=== PATIENT | female | born 1965 | race Hispanic/Latino ===

== ENCOUNTER 2017-11-18 21:41 | Emergency (ER) | payer OTHER ==
[2017-11-18] MEDS ORDERED: CLINDAMYCIN HCL 150 MG CAP ONE (23:36)
[2017-11-18] MEDS ORDERED: SMZ./TMP. 800/160 MG TABLET ONE (23:36)
--- NOTE | 2017-11-18 23:55 | EDPHYS ---
Physician Documentation [facility] Name: Dang Sequeira Age: 52 yrs Sex: Female : 1965 Arrival Date: 11/18/2017 Time: 21:46 Bed 13 Private MD: ED Physician Yasmine Kimbrough HPI: 11/18 23:46 This 52 yrs old Female presents to ER via Ambulatory with complaints of Toe jr8 Injury. 23:46 The patient presents with wound to right great toe . The complaints affect the right jr8 foot. Onset: The symptoms/episode began/occurred gradually, 1 week(s) ago. Modifying factors: The symptoms are alleviated by nothing, the symptoms are aggravated by nothing. Associated signs and symptoms: The patient has no apparent associated signs or symptoms. Severity of symptoms: At their worst the symptoms were moderate, in the emergency department the symptoms are unchanged. The patient has experienced a previous episode. Patient stated that her son noticed pin size hole to bottom of right great toe about 1 week ago. Stated that now it has increased in size and sees redness to top of toe with foul smelling fluid from bottom at open site of wound . 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 - Social history:: Smoking status: Patient/guardian denies using tobacco. ROS: 23:46 Eyes: Negative for injury, pain, redness, and discharge, ENT: Negative for injury, jr8 pain, and discharge, Neck: Negative for injury, pain, and swelling, Cardiovascular: Negative for chest pain, palpitations, and edema, Respiratory: Negative for shortness of breath, cough, wheezing, and pleuritic chest pain, Abdomen/GI: Negative for abdominal pain, nausea, vomiting, diarrhea, and constipation, Back: Negative for injury and pain, Skin: Negative for injury, rash, and discoloration, Neuro: Negative for headache, weakness, numbness, tingling, and seizure. 23:46 MS/extremity: Positive for erythema, of the right foot. Exam: 23:46 Eyes: Pupils equal round and reactive to light, extra-ocular motions intact. Lids and jr8 lashes normal. Conjunctiva and sclera are non-icteric and not injected. Cornea within normal limits. Periorbital areas with no swelling, redness, or edema. ENT: Nares patent. No nasal discharge, no septal abnormalities noted. Tympanic membranes are normal and external auditory canals are clear. Oropharynx with no redness, swelling, or masses, exudates, or evidence of obstruction, uvula midline. Mucous membranes moist. Neck: Trachea midline, no thyromegaly or masses palpated, and no cervical lymphadenopathy. Supple, full range of motion without nuchal rigidity, or vertebral point tenderness. No Meningismus. Cardiovascular: Regular rate and rhythm with a normal S1 and S2. No gallops, murmurs, or rubs. Normal PMI, no JVD. No pulse deficits. Respiratory: Lungs have equal breath sounds bilaterally, clear to auscultation and percussion. No rales, rhonchi or wheezes noted. No increased work of breathing, no retractions or nasal flaring. Abdomen/GI: Soft, non-tender, with normal bowel sounds. No distension or tympany. No guarding or rebound. No evidence of tenderness throughout. Back: No spinal tenderness. No costovertebral tenderness. Full range of motion. Skin: Warm, dry with normal turgor. Normal color with no rashes, no lesions, and no evidence of cellulitis. Neuro: Awake and alert, GCS 15, oriented to person, place, time, and situation. Cranial nerves II-XII grossly intact. Motor strength 5/5 in all extremities. Sensory grossly intact. Cerebellar exam normal. Normal gait. 23:46 Musculoskeletal/extremity: Extremities: grossly normal except: noted in the right foot: Patient has approximately 6 mm open wound to bottom of right great toe. Serous discharge noted from opening. Erythema present to top of toe , ROM: intact in all extremities, Circulation is intact in all extremities. Sensation intact. Vital Signs: 21:50 BP 160 / 100; Pulse 113; Resp 16; Temp 97.8; Pulse Ox 100% on R/A; Weight 118.84 kg; la1 Height 5 ft. 7 in. (170.18 cm); 23:00 BP 153 / 62; Pulse 102; Resp 18; Pulse Ox 97% on R/A; tl2 23:58 BP 152 / 66; Pulse 102; Resp 18; Pulse Ox 98% on R/A; Pain 0/10; tl2 21:50 Body Mass Index 41.03 (118.84 kg, 170.18 cm) la1 MDM: 22:05 Patient medically screened. jr8 23:46 Data reviewed: vital signs, nurses notes, radiologic studies, plain films, and as a jr8 result, I will discharge patient. Data interpreted: Pulse oximetry: on room air is 97 %. Interpretation: normal. Counseling: I had a detailed discussion with the patient and/or guardian regarding: the historical points, exam findings, and any diagnostic results supporting the discharge/admit diagnosis, radiology results, the need for outpatient follow up, a general surgeon, wound management , to return to the emergency department if symptoms worsen or persist or if there are any questions or concerns that arise at home. ED course: No signs of osteomyelitis on imaging. To f/u with wound care and general surgery. Will start on antibiotics . 11/18 23:35 Order name: Wound Culture 2 11/18 22:29 Order name: XRAY Foot RIGHT 3 View jr8 Administered Medications: 23:53 Drug: Bactrim 160 mg-800 mg (DS) 160 mg Route: PO; tl2 11/19 00:13 Follow up: Response: No adverse reaction; No change in condition tl1 00:46 Follow up: Response: No adverse reaction; Medication administered at discharge. tl2 11/18 23:53 Drug: Clindamycin 300 mg Route: PO; tl2 11/19 00:13 Follow up: Response: No adverse reaction; No change in condition tl1 00:45 Follow up: Response: No adverse reaction; Medication administered at discharge. tl2 Disposition: 05:42 Co-signature as Attending Physician, Yasmine Kimbrough MD. ny2 Disposition: 11/18/17 23:54 Discharged to Home. Impression: Unspecified open wound of right great toe without damage to nail, Cellulitis of right toe. - Condition is Stable. - Discharge Instructions: Cellulitis. - Prescriptions for Clindamycin HCl 300 mg Oral Capsule - take 1 capsule by ORAL route every 6 hours for 10 days; 40 capsule. Bactrim DS 800- 160 mg Oral Tablet - take 1 tablet by ORAL route every 12 hours for 10 days; 20 tablet. - Medication Reconciliation Form, Thank You Letter, Antibiotic Education, Prescription Opioid Use form. - Follow up: Calvin Scanlon MD; When: 2 - 3 days; Reason: Recheck today's complaints, Continuance of care, Re-evaluation by your physician. - Problem is new. - Symptoms have improved. Signatures: Dispatcher [employer] EDMS Jose Calderon PA PA jr8 Dylan Woods RN RN la1 Lilo Lenz RN RN tl1 Leanne Cisse RN RN tl2 Yasmine Kimbrough MD MD ma2
--- NOTE | 2017-11-18 23:55 | ER ---
Nurse's Notes [facility] Name: Dang Sequeira Age: 52 yrs Sex: Female : 1965 Arrival Date: 11/18/2017 Time: 21:46 Bed 13 Private MD: Diagnosis: Unspecified open wound of right great toe without damage to nail;Cellulitis of right toe Presentation: 11/18 21:49 Presenting complaint: Patient states: I am a diabetic and have a wound on my right la1 great toe, has been there for a week, now has purulent drainage. Transition of care: patient was not received from another setting of care. Onset of symptoms was November 18, 2017. Care prior to arrival: None. 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 - Social history:: Smoking status: Patient/guardian denies using tobacco. Screenin:04 Abuse screen: Denies threats or abuse. Nutritional screening: No deficits noted. tl2 Tuberculosis screening: No symptoms or risk factors identified. Fall Risk None identified. Assessment: 22:04 General: Appears in no apparent distress. comfortable, Behavior is calm, cooperative, tl2 appropriate for age, Denies fever, feeling ill. Pain: Denies pain. Neuro: Level of Consciousness is awake, alert, obeys commands, Oriented to person, place, time, situation. Cardiovascular: Denies chest pain. Respiratory: Airway is patent Respiratory effort is even, unlabored, Respiratory pattern is regular, symmetrical. GI: No signs and/or symptoms were reported involving the gastrointestinal system. : No signs and/or symptoms were reported regarding the genitourinary system. Derm: Skin is pink, warm \T\ dry. Wound noted right great toe Wound is small hole on bottom of great toe, no drainage noted. Pt reports foul odor. Discoloration noted. 23:00 Reassessment: Patient appears in no apparent distress at this time. No changes from tl2 previously documented assessment. Patient and/or family updated on plan of care and expected duration. Pain level reassessed. Patient is alert, oriented x 3, equal unlabored respirations, skin warm/dry/pink. 23:58 Reassessment: Patient appears in no apparent distress at this time. Patient and/or tl2 family updated on plan of care and expected duration. Pain level reassessed. Patient is alert, oriented x 3, equal unlabored respirations, skin warm/dry/pink. Vital Signs: 21:50 BP 160 / 100; Pulse 113; Resp 16; Temp 97.8; Pulse Ox 100% on R/A; Weight 118.84 kg; la1 Height 5 ft. 7 in. (170.18 cm); 23:00 BP 153 / 62; Pulse 102; Resp 18; Pulse Ox 97% on R/A; tl2 23:58 BP 152 / 66; Pulse 102; Resp 18; Pulse Ox 98% on R/A; Pain 0/10; tl2 21:50 Body Mass Index 41.03 (118.84 kg, 170.18 cm) la1 ED Course: 21:46 Patient arrived in ED. do 21:49 Triage completed. la1 21:50 Arm band placed on left wrist. la1 22:04 Patient has correct armband on for positive identification. Bed in low position. Call tl2 light in reach. Side rails up X 1. Adult w/ patient. 22:05 Jose Calderon PA is PHCP. jr8 22:05 Yasmine Kimbrough MD is Attending Physician. jr8 22:47 XRAY Foot RIGHT 3 View In Process Unspecified. EDMS 23:00 Leanne Cisse, NATHAN is Primary Nurse. tl2 23:53 Calvin Scanlon MD is Referral Physician. jr8 11/19 00:09 No provider procedures requiring assistance completed. Patient did not have IV access tl1 during this emergency room visit. 00:10 Dressings: non-adherent dressing x 1 plantar aspect of right first toe and right first tl1 toe. Administered Medications: 11/18 23:53 Drug: Bactrim 160 mg-800 mg (DS) 160 mg Route: PO; tl2 11/19 00:13 Follow up: Response: No adverse reaction; No change in condition tl1 00:46 Follow up: Response: No adverse reaction; Medication administered at discharge. tl2 11/18 23:53 Drug: Clindamycin 300 mg Route: PO; tl2 11/19 00:13 Follow up: Response: No adverse reaction; No change in condition tl1 00:45 Follow up: Response: No adverse reaction; Medication administered at discharge. tl2 Outcome: 11/18 23:54 Discharge ordered by jr8 11/19 00:11 Discharged to home ambulatory, with family. tl1 Condition: good Discharge instructions given to patient, family, Instructed on discharge instructions, follow up and referral plans. medication usage, wound care, Demonstrated understanding of instructions, follow-up care, medications, wound care, Prescriptions given X 2. 00:11 Patient left the ED. tl1 Addendum: 11/22/2017 07:57 Addendum: Culture Results: Positive wound culture. No further action required. Bacteria i w sensitive to prescribed antibiotic. Signatures: Dispatcher [employer] EDMS Tiffanie Mon RN Jose Cook PA PA jr8 Dylan Woods RN RN la1 Lilo Lenz RN RN tl1 Mirela Chilel Taylor RN RN tl2
[2017-11-19 00:32] VITALS: TEMP 97.8
[2017-11-19 00:34] VITALS: BP 152/66; O2SAT 98
--- NOTE | 2017-11-19 07:27 | RAD REPORT ---
EXAM DESCRIPTION: RAD - Foot Right 3 View - 11/18/2017 10:47 pm CLINICAL HISTORY: Soft tissue wound right toe, possible osteomyelitis. A preliminary report was provided at the time of the study. COMPARISON: None. FINDINGS: No fracture, dislocation or periosteal reaction. Degenerative changes are present, relativ richy mild at the first toe IP joint. No significant degenerative change at the first MTP joint. Patien t has dense arterial tree calcifications. No erosive or destructive bone process confirmed on this st udy. Osteomyelitis can exist prior to radiographic bone destruction. Focal air density is seen in the soft tissues. No foreign body is seen. Air density may be due to an open wound or the patient could have gas-forming organism in the soft tissues. IMPRESSION: Soft tissue wound with soft tissue air along the plantar aspect of the distal first toe. No radiographic evidence for osteomyelitis.
--- NOTE | 2017-12-05 18:56 | P.PN ---
Subjective Date of Service: 11/24/17 Chief Complaint: cellulitis, gangrenous toe Subjective: No new changes Review of Systems General: Fever (no), Chills (no) Respiratory: Unremarkable Cardiovascular: Unremarkable Musculoskeletal: As per HPI Integumentary: As per HPI Physical Examination - Vital Signs Temperature: 97.8 F Blood Pressure: 152/66 Pulse: 102 Respirations: 18 - Physical Exam Musculoskeletal: Swelling, Erythema Integumentary: Erythema, Warmth, Cyanosis, Diabetic ulcer (gangraneous changes over first toe.) Neurological: Normal speech Assessment And Plan - Plan Pt does not want amputation at this time. She will only allow me to clean the gangreous skin ulcer and after abx treatment and wound care if no improvement then she will make any other decision. BAR of suegery and options fully explained abx per ID LTAC consult
== END 2017-11-19 00:11 | disposition home or self-care (01) ==
LOC: ER 21:41
DX: L03.031 Cellulitis of right toe (principal); I10 Essential (primary) hypertension; E11.9 Type 2 diabetes mellitus without complications; E78.00 Pure hypercholesterolemia, unspecified; Z79.4 Long term (current) use of insulin; Z79.82 Long term (current) use of aspirin; Z91.040 Latex allergy status; Z91.048 Other nonmedicinal substance allergy status
CPT/HCPCS: 87070; 87077; 87186; 87205; 99283

== ENCOUNTER 2017-11-23 13:35 | Inpatient (IN) | payer OTHER ==
[2017-11-23] MEDS ORDERED: ACETAMINOPHEN 325 MG TABLET PO PRN (14:40)
[2017-11-23] MEDS ORDERED: ONDANSETRON 4 MG/2 ML VIAL IV PRN (14:41)
[2017-11-23] MEDS ORDERED: HYDROMORPHONE HCL 2 MG/ML inj IV PRN (14:44)
[2017-11-23 15:06] LABS: Urine Appearance CLEAR; Urine Bilirubin NEGATIVE (NEG); Urine Blood 2+ (NEG); Urine Color YELLOW; Urine Glucose 3+ (NEG); Urine Protein TRACE (NEG); Urine Specific Gravity 1.025 (1.005-1.030); Urine Urobilinogen 0.2 mg/dL (0.2-1.0)
[2017-11-23 15:24] LABS: Urine Microscopic Reflex ORDER UMIC
--- NOTE | 2017-11-23 15:34 | RAD REPORT ---
EXAM DESCRIPTION: RAD - Chest Pa And Lat (2 Views) - 11/23/2017 3:02 pm CLINICAL HISTORY: Preop chest, right toe gangrene COMPARISON: None. TECHNIQUE: PA and lateral views of the chest were obtained. FINDINGS: The lungs are clear. Heart size is normal and central vasculature is within normal limit s. No pleural effusion or pneumothorax seen. No acute bony finding noted. No aortic abnormality. IMPRESSION: No acute cardiopulmonary process.
[2017-11-23 15:52] VITALS: BMI 40.1
[2017-11-23 16:16] LABS: Absolute Lymphocytes (CBC) 1.9 K/uL (0.7-4.9); Absolute Monocytes 0.9 K/uL (0.1-1.3); Absolute Neutrophil 6.1 K/uL (1.8-8.0); Basophils % 0.8 % (0-1.3); Eosinophils % 3.3 % (0-4.4); Hematocrit 35.4 % (36.0-45.0); Lymphocytes % 20.5 % (15.3-44.8); MCH 26.9 pg (27.0-35.0); MCV 83.2 fL (80-100); MPV 8.3 fL (7.6-11.3); Monocytes % 9.9 % (3.3-12.3); RBC Red Blood Cell Count 4.26 M/uL (3.86-4.86)
[2017-11-23 16:19] LABS: Protime INR 1.01
[2017-11-23] MEDS ORDERED: D50W 25 GM/50 ML SYRINGE IV PRN (16:55)
[2017-11-23] MEDS ORDERED: GLUCAGON 1 MG/VIAL IM PRN (16:55)
[2017-11-23 16:58] LABS: Potassium 5.2 mEq/L (3.6-5.0)
[2017-11-23] MEDS: PIPER/TAZO/NS 3.375gm 3.375 GM/100 ML BAG IV SCH (17:10)
[2017-11-23 18:07] LABS: Urine Bacteria <20 /HPF (<20); Urine Culture Reflex Order NOT NEEDED
[2017-11-23 18:08] LABS: Urine Yeast PRESENT (NONE SEEN)
--- NOTE | 2017-11-23 19:59 | RAD REPORT ---
EXAM DESCRIPTION: MRI - Foot Right Wo Cont - 11/23/2017 7:16 pm CLINICAL HISTORY: Gangrenous right toe, prior history of osteomyelitis several years earlier, open w ound plantar surface of the right great toe COMPARISON: Right foot November 18 TECHNIQUE: Multiplanar imaging of the foot performed using T1 weighted, T2 weighted, T2 fat saturati on and T2 stir sequencing. FINDINGS: Hypointense T1 and hyperintense T2 signal is present in the first distal phalanx. No corti koko disruption identified on this examination. No signal characteristics in the first proximal phalan x are normal. Soft tissue thickening with edematous/inflammatory signal is present surrounding the di stal first toe. No abscess or drainable fluid collections seen. The flexor and extensor tendons are i ntact. The second- fifth toes and the first- fifth metatarsals show normal marrow signal pattern. Mild tarsa l bone degenerative changes are present. No suspicious marrow signal pattern in the midfoot. IMPRESSION: Osteomyelitis changes are evident in the distal phalanx first toe without cortical disru ption identifiable. Proximal phalanx first toe as well as remaining bony structures of the foot show no abnormal marrow s ignal pattern. Infectious/inflammatory signal surrounding the first toe. No drainable fluid collection.
--- NOTE | 2017-11-23 20:27 | P.HP ---
Certification for Inpatient Patient admitted to: Inpatient With expected LOS: >2 Midnights Practitioner: I am a practitioner with admitting privileges, knowledge of patient current condition, hospital course, and medical plan of care. Services: Services provided to patient in accordance with Admission requirements found in Title 42 Section 412.3 of the Code of Federal Regulations Patient History Date of Service: 11/23/17 Reason for admission: RIGHT TOE INFECTION. History of Present Illness: MS. KING'S SON NOTED A HOLE IN THE TOE A FEW DAYS AGO. SHE NOW HAS GREEN TO YELLOW RIGHT TOW WITH PAIN. SHE GOES TO DR. ROSS FOR HER CARE. SHE HAS MODERATE PVD ALSO. Allergies latex Allergy (Mild, Verified 01/01/13 11:26) Itching Latex, Natural Rubber Allergy (Unverified 07/03/17 11:42) Unknown Home Medications: Glipizide [Glucotrol Xl] 10 mg PO BID 01/24/13 Aloe Vera 350 mg PO DAILY 07/13/17 Aspirin [Aspirin EC 81 MG] 81 mg PO DAILY 07/13/17 Atorvastatin Calcium [Lipitor] 10 mg PO BEDTIME 07/13/17 Bimatoprost [Lumigan Opthalmic Drops*] 2.5 ml EACH EYE DAILY 07/13/17 Brimonidine Tartrate/Timolol [Combigan 0.2%-0.5% Eye Drops] 2.5 ml EACH EYE BID 07/13/17 Cinnamon Bark [Cinnamon] 500 mg PO DAILY 07/13/17 Clindamycin HCl 300 mg PO TID 07/13/17 Folic Acid/Mv,Fe,Min [One Daily Complete Tablet] 1 each PO DAILY 07/13/17 Lisinopril 20 mg PO DAILY 07/13/17 Sitagliptin Phosphate [Januvia*] 100 mg PO DAILY 07/13/17 Metformin HCl 1,000 mg PO BID 11/23/17 - Past Medical/Surgical History Has patient received pneumonia vaccine in the past: No Diabetic: Yes -: DM type 2 -: hyperlipidemia -: htn -: x1 - Social History Smoking Status: Never smoker Alcohol use: No CD- Drugs: No Caffeine use: Yes Place of Residence: Home Review of Systems 10-point ROS is otherwise unremarkable Integumentary: Other Physical Examination - Vital Signs Temperature: 97.8 F Blood Pressure: 146/64 Pulse: 88 Respirations: 16 Pulse Ox (%): 97 - Physical Exam General: Alert, Moderate distress HEENT: Atraumatic, PERRLA, Mucous membr. moist/pink, EOMI, Sclerae nonicteric Neck: Supple, 2+ carotid pulse no bruit, No LAD, Without JVD or thyroid abnormality Respiratory: Clear to auscultation bilaterally, Normal air movement Cardiovascular: Regular rate/rhythm, Normal S1 S2 Gastrointestinal: Normal bowel sounds, No tenderness Musculoskeletal: No tenderness Integumentary: Other (DIABETIC WET GANGRENE RIGHT GREAT TOE.) Neurological: Normal gait, Normal speech, Normal strength at 5/5 x4 extr, Normal tone, Normal affect Lymphatics: No axilla or inguinal lymphadenopathy - Studies Laboratory Data (last 24 hrs) 11/23/17 16:00: Sodium 135, Potassium 5.2 H, BUN 30 H, Creatinine 0.97, Glucose 152 H 11/23/17 16:00: PT 11.9, INR 1.01, APTT 25.9 11/23/17 16:00: WBC 9.3, Hgb 11.5 L, Hct 35.4 L, Plt Count 385 Assessment and Plan - Problems (Diagnosis) (1) Diabetic wet gangrene of the foot Current Visit: Yes Status: Acute Plan: IV ZOSYN STOP CLINDAMYCIN CONSULT DR. MOREAU MRI DONE TO CONFIRM OSTEOMYELITIS DISTAL PHALANX DEBRIDE IV ABX 6 WEEKS. (2) Diabetes Current Visit: Yes Status: Acute Qualifiers: Diabetes mellitus type: type 2 - Advance Directives Does patient have a Living Will: No Does patient have a Durable POA for Healthcare: No
[2017-11-23] MEDS: INSULIN -REGULAR HUMAN 50 UNIT/0.5 ML ML SQ SCH (21:00)
[2017-11-23] MEDS ORDERED: BRIMONIDINE TARTRATE EACH EYE SCH (21:00)
[2017-11-23] MEDS ORDERED: TIMOLOL EACH EYE SCH (21:00)
[2017-11-23] MEDS: ATORVASTATIN 10 MG TAB PO SCH (21:50)
[2017-11-23] MEDS: GLIPIZIDE S.A. 5 MG TAB PO SCH (21:50)
[2017-11-23] MEDS: METFORMIN HCL 500 MG TAB PO SCH (21:50)
--- NOTE | 2017-11-23 22:10 | EKG ---
Test Date: 2017-11-23 Test Time: 16:52:11 Director Of Business Operations: EBONI MEASUREMENT RESULTS: Intervals: Rate: 94 LA: 158 QRSD: 86 QT: 368 QTc: 460 Falconer: P: 26 LA: 158 QRS: -29 T: 49 INTERPRETIVE STATEMENTS: Normal sinus rhythm Normal ECG Compared to ECG 01/04/2007 14:03:05 No significant changes Electronically Signed On 11-23-17 22:09:25 CDT by Geoffrey Delgado
--- NOTE | 2017-11-23 23:22 | CON ---
Date of Consultation: 11/23/2017 Reason For Service: Right foot cellulitis with gangrenous changes in the toe. History Of Present Illness: This is the case of a 52-year-old patient with multiple medical problems , who comes to us with a foul-smelling right first toe with cellulitis of the foot region. [facility]ie nt [facility] and sent to the hospital for admission, IV antibiotics, and a surgical consult for surgical intervention. She does not remember any trauma. She has been having problem with this toe for years. At one point, she also required chronic IV antibiotics to save that toe. She does not remember any trauma. She understands the sensation there is not perfect, but sti ll has a lot of sensation over that area. She denies any dysuria, hematuria, hematochezia, or melena . Denies any recent traveling out of the country. Denies any family member sick at home. Past Medical History: Include diabetes, non-insulin dependent; high cholesterol; hypertension; perip heral neuropathy. Allergies: TO LATEX. Social History: She does not smoke. She does not drink alcohol. Family History: Peripheral vascular disease. Physical Examination: General: This is a patient is awake and alert. HEENT: Pupils are equal and reactive, anicteric. Neck: Supple. Chest: Clear. Heart: S1, S2. Abdomen: Soft and depressible. No guarding or rebound. Extremities: Over the bilateral lower extremities, the patient has decreased peripheral pulses, dors iam pedis. No cyanosis, but on the right foot, the patient has cellulitis that extends to the first toe and also proximal foot region. Also, the first toe has a diabetic ulcer and that has foul smell ing, very close to the bone. I am surprised that the bone is not affected by now. There is some nec rotic tissue that needs to be removed. I am not sure if we have to remove the toe completely, but it needs to be clean and some fluctuance present too. No cyanosis. Review of Systems: A 10-point is otherwise unremarkable. Laboratory Data: Blood work shows WBC count of 9.3 with hemoglobin of 11.5. INR is 1.01. Potassium is 5.2, glucose 152. Foot x-ray shows soft tissue wound with soft tissue air, obviously there is an ulcer in that area on the distal toe. Venous Doppler done on July 2017, shows no DVT. Arterial Doppler done 8 done on the right lower extremity shows peripheral vascular disease, occlusion or significant steno sis in the right posterior tibial region. This was ordered by Dr. Yates. Assessment: This is a 52-year-old patient with peripheral vascular disease. Obviously, this is well known since I saw the arterial Doppler. We are going to check with the primary doctor to see if Car diology or Interventional Cardiology has been watching this patient. From the toe standpoint, we are going to give antibiotics. The bone is close, is just near that area. There is some exposure to wh ere that can surprise this patient does not have osteomyelitis, so I believe a bone scan or MRI shoul d be done. The patient will go for surgical debridement of that area since it is very sensitive with benefits, alternatives, and risks fully explained to the patient, which include but are not limited to infection, bleeding, damage to adjacent structures, anesthesia complication, nonhealing wound, DE, and even . She also understands this may not relieve any symptoms. She might need more than o ne surgical intervention. She is still have a chance of losing that toe. CINDY/MODL Voice ID: [id number] Report ID: [id number]
[2017-11-24] MEDS ORDERED: LIDOCAINE 1% MPF 5 ML VIAL ONE (01:02)
[2017-11-24] MEDS: PIPER/TAZO/NS 3.375gm 3.375 GM/100 ML BAG IV SCH ×4 (02:32→17:34)
--- NOTE | 2017-11-24 08:13 | RAD REPORT ---
EXAM DESCRIPTION: RAD - Chest Single View - 11/23/2017 11:28 pm CLINICAL HISTORY: Device placement PICC line placement COMPARISON: November 23, 2017 FINDINGS: A PICC line has been inserted with its tip in the proximal superior vena cava. The lungs appear clear of acute infiltrate. The heart is normal size. IMPRESSION: PICC line with its tip in the distal superior vena cava
--- NOTE | 2017-11-24 08:14 | RAD REPORT ---
EXAM DESCRIPTION: RAD - Chest Single View - 11/24/2017 1:43 am CLINICAL HISTORY: Device placement PICC line placement COMPARISON: November 23 FINDINGS: A PICC line has been advanced. The tip lies within the mid superior vena cava The lungs appear clear of acute infiltrate. The heart is normal size. IMPRESSION: PICC line with its tip in the mid superior vena cava
[2017-11-24] MEDS ORDERED: MULTIVIT W/ MINERAL TAB PO SCH (09:00)
[2017-11-24] MEDS ORDERED: BIMATOPROST EACH EYE SCH (09:00)
[2017-11-24] MEDS: INSULIN -REGULAR HUMAN 50 UNIT/0.5 ML ML SQ SCH ×4 (09:19→21:00)
[2017-11-24] MEDS: GLIPIZIDE S.A. 5 MG TAB PO SCH ×2 (09:22→20:48)
[2017-11-24] MEDS: METFORMIN HCL 500 MG TAB PO SCH ×2 (09:22→20:48)
[2017-11-24] MEDS: LISINOPRIL 20 MG TAB PO SCH (09:22)
[2017-11-24] MEDS: SITAGLIPTIN PHOS 100 MG TAB PO SCH (09:22)
[2017-11-24] MEDS: ASPIRIN EC 81 MG TAB PO SCH (09:22)
[2017-11-24 12:07] LABS: A1c Component 0.87 mg/dL
[2017-11-24] MEDS: ATORVASTATIN 10 MG TAB PO SCH (20:47)
[2017-11-25] MEDS: PIPER/TAZO/NS 3.375gm 3.375 GM/100 ML BAG IV SCH ×3 (00:44→17:19)
[2017-11-25] MEDS: INSULIN -REGULAR HUMAN 50 UNIT/0.5 ML ML SQ SCH ×4 (07:30→20:50)
[2017-11-25] MEDS: GLIPIZIDE S.A. 5 MG TAB PO SCH ×2 (09:00→20:49)
[2017-11-25] MEDS: METFORMIN HCL 500 MG TAB PO SCH ×2 (09:00→20:49)
[2017-11-25] MEDS: ASPIRIN EC 81 MG TAB PO SCH (09:05)
[2017-11-25] MEDS: LISINOPRIL 20 MG TAB PO SCH (09:06)
--- NOTE | 2017-11-25 10:18 | P.PN ---
Subjective Date of Service: 11/25/17 Chief Complaint: RIGHT TOE INFECTION. Subjective: No new changes, Improving, NPO, Doing well, Other (Awaiting I&D today) Review of Systems 10-point ROS is otherwise unremarkable Physical Examination - Vital Signs Temperature: 97.2 F Blood Pressure: 117/57 Pulse: 94 Respirations: 16 Pulse Ox (%): 98 - Physical Exam General: Alert, In no apparent distress HEENT: Atraumatic, PERRLA, EOMI Neck: Supple, JVD not distended Respiratory: Clear to auscultation bilaterally, Normal air movement Cardiovascular: Regular rate/rhythm, Normal S1 S2 Gastrointestinal: Normal bowel sounds, No tenderness Musculoskeletal: Erythema, Tenderness, Warmth Integumentary: No rashes Neurological: Normal speech, Normal tone, Normal affect Lymphatics: No axilla or inguinal lymphadenopathy - Studies Medications List Reviewed: Yes Assessment & Plan - Problems (Diagnosis) (1) Diabetic wet gangrene of the foot Onset Date: 11/24/17 Current Visit: Yes Status: Acute Plan: Diabetic Foot Ulcer with gangrene on the right side. -ID and Surgery consulted. -Scheduled for I&D today. -LTAC placement after that. Pt to go to [facility] (2) Diabetes Onset Date: 11/24/17 Current Visit: Yes Status: Chronic Qualifiers: Diabetes mellitus type: type 2 Diabetes mellitus complication status: with circulatory complication Diabetes mellitus complication detail: with peripheral angiopathy with gangrene Discharge Plan: LTAC Plan to discharge in: 24 Hours - Code Status/Comfort Care Code Status Assessed: Yes Critical Care: No
[2017-11-25] MEDS ORDERED: PROPOFOL 200 MG/20 ML VIAL IV ONE (11:53)
[2017-11-25] MEDS ORDERED: LIDOCAINE 1% MPF 5 ML VIAL ONE (11:53)
[2017-11-25] MEDS ORDERED: MIDAZOLAM HCL 2 MG/2 ML INJ ONE (11:53)
[2017-11-25] MEDS ORDERED: FENTANYL CITR 100 MCG/2 ML ONE (11:53)
[2017-11-25] MEDS ORDERED: NA CHLORIDE 0.9% 1,000 ML ONE (12:09)
[2017-11-25] MEDS ORDERED: BUPIVACAINE 0.5% PF 10 ML VIAL ONE (12:48)
[2017-11-25] MEDS ORDERED: EPHEDRINE SULF 50 MG/5 ML SYR ONE (13:27)
--- NOTE | 2017-11-25 13:29 | P.BOP ---
Preoperative diagnosis: right foot cellulitis, osteomyelitis with necrotic first toe diabetic ulcer Postoperative diagnosis: same Primary procedure: Excisional debridement down to tendon and bone of right toe Secondary procedure: 3x3cm Estimated blood loss: <5cc Specimen: culture, necrotic tissue Findings: osteomyelitis, necrotic first toe diabetic ulcer with gangrenous changes Anesthesia: General Complications: None Transferred to: Recovery Room Condition: Good
[2017-11-25] MEDS ORDERED: ONDANSETRON 4 MG/2 ML VIAL ONE (13:33)
[2017-11-25] MEDS ORDERED: Phenylephrine HCl 10 MG/ML 1 ML VIAL ONE (13:38)
[2017-11-25] MEDS ORDERED: LIDOCAINE 1% MPF 5 ML VIAL IM PRN (15:00)
[2017-11-25] MEDS ORDERED: SODIUM CHLORIDE 0.9% 10ML INJ IV PRN ×2 (15:00)
[2017-11-25] MEDS: SITAGLIPTIN PHOS 100 MG TAB PO SCH (17:17)
[2017-11-25] MEDS: ATORVASTATIN 10 MG TAB PO SCH (20:50)
[2017-11-25] MEDS: SODIUM CHLORIDE 0.9% 10ML INJ IV SCH (20:54)
[2017-11-26] MEDS: PIPER/TAZO/NS 3.375gm 3.375 GM/100 ML BAG IV SCH ×3 (00:58→16:57)
--- NOTE | 2017-11-26 03:58 | OP ---
Date of Procedure: 11/25/2017 Surgeon: Dyllan Richardson MD Preoperative Diagnoses: Right foot cellulitis and osteomyelitis of the right first toe with necrotic first toe diabetic ulcer with gangrenous changes, foul smelling, cellulitis. Postoperative Diagnoses: Right foot cellulitis and osteomyelitis of the right first toe with necroti c first toe diabetic ulcer with gangrenous changes, foul smelling, cellulitis. Procedure: Excisional debridement down to tendon and bone of the right first toe, about 3 x 3 cm are a. Estimated Blood Loss: Less than 5 cc. Specimen: Culture and necrotic tissue. Findings: The patient has at least 1/3 of that toe with necrotic tissue present. It goes down to jazz ne to tendon. Debridement have to be done. The patient does not want the amputation, so all the necrotic tissue of that area. Microscopically, the rest will have to be done with Santyl. C ultures were obtained. Indication For Procedure: This is the case of a 52-year-old patient with history of osteomyelitis of the right first toe in the past, now comes with a new area, foul smelling wound on the right first t oe with gangrenous changes. It was explained to her the options of an amputation of the toe. She do es not want to do so. She wants debridement, so we are going to debride that area, although we are n ot sure exactly if that is going to heal. She has been through this before several years ago, had os teomyelitis that required long-term antibiotics of the same area. The benefits, alternatives, and ri sks of debridement of the right first toe and foot fully explained to the patient, which include but are not limited to infection, bleeding, damage to adjacent structures, anesthesia complication, nonhe aling wound, [place], and even . She also understands this may not relieve any symptoms. She might need more than one surgical intervention. She understands the importance also of wound care and bein g compliant with the Infectious Disease and long-term antibiotics. She still might lose her toe, but she wants some time. Description Of Procedure: The patient was brought to the operating room and placed in the supine pos ition. Anesthesia was done without complication. The right foot was prepped and draped in usual meri rile fashion. We proceeded to do the debridement of that toe. This toes goes all the way up to part of the foot. The patient has a large area of a necrotic tissue, cover mainly the plantar surface of the first toe, about 3 x 3 cm at least. Bone was exposed. Tendons were exposed. We hav e to debride part of the tendons of the flexor of that toe that will involve. Culture was obtained. The area was profusely irrigated and then the area was packed with wet-to-dry dressing. We will obt ain the culture before that. The patient tolerated the procedure well. The patient was sent to [facility] in stable condition. The patient will be sent to the floor and eventually we will send to an AC by the primary doctor. JERRI Voice ID: [id number] Report ID: [id number]
[2017-11-26] MEDS: GLIPIZIDE S.A. 5 MG TAB PO SCH ×2 (08:51→21:12)
[2017-11-26] MEDS: LISINOPRIL 20 MG TAB PO SCH (08:51)
[2017-11-26] MEDS: SITAGLIPTIN PHOS 100 MG TAB PO SCH (08:51)
[2017-11-26] MEDS: METFORMIN HCL 500 MG TAB PO SCH ×2 (08:51→21:12)
[2017-11-26] MEDS: ASPIRIN EC 81 MG TAB PO SCH (08:51)
[2017-11-26] MEDS: INSULIN -REGULAR HUMAN 50 UNIT/0.5 ML ML SQ SCH ×4 (08:52→21:00)
[2017-11-26] MEDS: SODIUM CHLORIDE 0.9% 10ML INJ IV SCH ×2 (08:53→21:14)
[2017-11-26 11:48] LABS: Absolute Lymphocytes (CBC) 1.6 K/uL (0.7-4.9); Absolute Monocytes 0.8 K/uL (0.1-1.3); Absolute Neutrophil 4.8 K/uL (1.8-8.0); Basophils % 1.1 % (0-1.3); Eosinophils % 3.7 % (0-4.4); Hematocrit 32.9 % (36.0-45.0); Lymphocytes % 20.7 % (15.3-44.8); MCH 26.9 pg (27.0-35.0); MCV 82.6 fL (80-100); Monocytes % 10.6 % (3.3-12.3); RBC Red Blood Cell Count 3.98 M/uL (3.86-4.86)
[2017-11-26 12:40] LABS: Albumin 2.5 g/dL (3.2-5.5); Bilirubin Total 0.3 mg/dL (0.3-1.2); Potassium 4.9 mEq/L (3.6-5.0); Protein, Total 7.3 g/dL (6.0-8.3)
--- NOTE | 2017-11-26 15:37 | PN ---
Subjective: Currently, she is lying in bed, she looks comfortable. No chest pain. No abdominal pain. No fever. No chills. Good appetite. Normal bowel movement. Objective: Vital Signs: Today blood pressure is 119/70, respiratory rate 16, pulse 102, temperature 97.2, saturating 96%. General: She is fully alert, oriented x3. Does not look in any distress. HEENT: Atraumatic, normocephalic. PERRLA. Oral mucosa is moist. Neck: Supple. No JVD. No carotid bruits. Chest: Clear to auscultation. Good air entry. Heart: Regular rate and rhythm. S1, S2 normal. No gallop or murmur. Abdomen: Soft, nontender. No masses. No hepatosplenomegaly. Positive bowel sounds. Obese. Extremities: No clubbing or cyanosis. She is status post excisional debridement of the right first toe with dressing on the right foot. No active bleeding. Neurologic: Grossly intact. Laboratory Data: Today's labs: All CBC and CMP not done and I just ordered and they are pending. Glucose in the range of 135 to 241. Assessment And Plan: 1. Diabetic ulcer with wet gangrene of the big toe, status post debridement done by Dr. Richardson yesterday. Patient tolerated procedure well. She will need LTAC placement and she will go to [facility] on Tuesday. In the meantime, we will continue antibiotic on Zosyn, consult with Dr. Fuller still pending to decide the term of antibiotic. 2. Diabetes, borderline control. She will continue on home medication with sitagliptin, glipizide, insulin sliding scale. 3. Hyperlipidemia, continue on atorvastatin. 4. Hypertension, we will continue on lisinopril, well controlled. 5. She will probably need deep vein thrombosis prophylaxis. If General Surgery agree and they do not think there is risk for bleeding, I will encourage to ambulate. ELLIS/RUBINA Voice ID: [id number] Report ID: [id number] MTDD
[2017-11-26] MEDS: ENOXAPARIN 40 MG/0.4 ML SQ SCH (16:56)
[2017-11-26] MEDS: ATORVASTATIN 10 MG TAB PO SCH (21:13)
[2017-11-27] MEDS: PIPER/TAZO/NS 3.375gm 3.375 GM/100 ML BAG IV SCH ×3 (00:45→18:36)
[2017-11-27 05:08] LABS: Absolute Lymphocytes (CBC) 2.5 K/uL (0.7-4.9); Absolute Monocytes 1.1 K/uL (0.1-1.3); Absolute Neutrophil 4.4 K/uL (1.8-8.0); Eosinophils % 5.6 % (0-4.4); Hematocrit 31.6 % (36.0-45.0); Lymphocytes % 29.2 % (15.3-44.8); MCH 27.3 pg (27.0-35.0); MCV 82.5 fL (80-100); MPV 8.1 fL (7.6-11.3); Monocytes % 12.6 % (3.3-12.3); RBC Red Blood Cell Count 3.82 M/uL (3.86-4.86)
[2017-11-27 05:23] LABS: Bilirubin Total 0.2 mg/dL (0.3-1.2); Potassium 4.6 mEq/L (3.6-5.0); Protein, Total 7.4 g/dL (6.0-8.3)
[2017-11-27] MEDS: INSULIN -REGULAR HUMAN 50 UNIT/0.5 ML ML SQ SCH ×4 (07:30→21:00)
[2017-11-27] MEDS: SODIUM CHLORIDE 0.9% 10ML INJ IV SCH ×2 (09:00→21:33)
[2017-11-27] MEDS: ASPIRIN EC 81 MG TAB PO SCH (10:06)
[2017-11-27] MEDS: SITAGLIPTIN PHOS 100 MG TAB PO SCH (10:06)
[2017-11-27] MEDS: METFORMIN HCL 500 MG TAB PO SCH ×2 (10:06→21:32)
[2017-11-27] MEDS: GLIPIZIDE S.A. 5 MG TAB PO SCH ×2 (10:06→21:32)
[2017-11-27] MEDS: LISINOPRIL 20 MG TAB PO SCH (10:06)
[2017-11-27] MEDS: COLLAGENASE 30 GM OINTMENT TOP SCH (10:07)
--- NOTE | 2017-11-27 15:29 | PN ---
Subjective: Currently, the patient is lying in bed. She is doing well. She had no chest pain, no a bdominal pain. No foot pain. No fever. No chills. She is getting ready to go to a rehab facility in a.m. Objective: Vital Signs: Blood pressure 114/67, respiratory rate 20, pulse 95, temperature 97.8, sat urating 95% on room air. She is fully alert, oriented x3. Does not look in any distress. HEENT: Atraumatic, normocephalic. PERRLA. Oral mucosa is moist. Neck: Supple. No JVD. No carotid bruits. Chest: Clear to auscultation. Good air entry. Heart: Regular rate and rhythm. S1, S2 normal. No gallop or murmur. Abdomen: Soft, nontender, no masses, obese. Positive bowel sounds. Extremities: No clubbing or cyanosis or edema. She has a stasis dermatitis signs. Status post righ t large toe amputation. Neurologic: Deferred. Laboratory Data: Today showed CBC was normal except for hemoglobin 10.4, which is stable from yester day. Chemistry normal with a BUN of 26, slightly elevated creatinine of 1.16. Calcium 8.1, albumin 3. Assessment And Plan: 1.Diabetic ulcer with wet gangrene of the right big toe. Status post debridement done by Dr. Jovani neff on Tuesday. The patient tolerated procedure very well. Plan to discharge her to LTAC on Tuesday. Continue antibiotic on Zosyn. ID consult with Dr. Fuller still pending, he is on vacation. To decide type of antibiotic. 2.Diabetes. Continue home medication with sitagliptin, glipizide, and insulin sliding scale for now . I will order hemoglobin A1c to see how well controlled her diabetes. 3.Hyperlipidemia. Continue on atorvastatin. 4.Hypertension. Well controlled on lisinopril. 5.DVT prophylaxis with Lovenox. Discharge in a.m. 6.Renal insufficiency, mild. We will encourage patient to drink more fluids. ELLIS/RUBINA Voice ID: [id number] Report ID: [id number]
[2017-11-27] MEDS: ENOXAPARIN 40 MG/0.4 ML SQ SCH (18:36)
[2017-11-27] MEDS: ATORVASTATIN 10 MG TAB PO SCH (21:32)
[2017-11-28] MEDS: PIPER/TAZO/NS 3.375gm 3.375 GM/100 ML BAG IV SCH ×3 (02:20→17:18)
[2017-11-28] MEDS: INSULIN -REGULAR HUMAN 50 UNIT/0.5 ML ML SQ SCH ×4 (07:30→20:25)
[2017-11-28] MEDS: GLIPIZIDE S.A. 5 MG TAB PO SCH ×2 (08:25→20:25)
[2017-11-28] MEDS: SITAGLIPTIN PHOS 100 MG TAB PO SCH (08:26)
[2017-11-28] MEDS: ASPIRIN EC 81 MG TAB PO SCH (08:26)
[2017-11-28] MEDS: METFORMIN HCL 500 MG TAB PO SCH ×2 (08:26→20:24)
[2017-11-28] MEDS: LISINOPRIL 20 MG TAB PO SCH (08:26)
[2017-11-28] MEDS: SODIUM CHLORIDE 0.9% 10ML INJ IV SCH ×2 (08:27→20:26)
[2017-11-28] MEDS: COLLAGENASE 30 GM OINTMENT TOP SCH (08:28)
[2017-11-28 11:34] LABS: A1c Component 0.83 mg/dL; Hemoglobin A1c 8.5 % (4-6.0)
[2017-11-28 16:36] VITALS: TEMP 97.8
[2017-11-28] MEDS: ENOXAPARIN 40 MG/0.4 ML SQ SCH (17:18)
--- NOTE | 2017-11-28 17:39 | P.DS ---
Admission Date: 11/23/17 Discharge Date: 11/28/17 Disposition: ROUTINE DISCHARGE Discharge Condition: GOOD Reason for Admission: RIGHT TOE INFECTION. Consultations: General Surgery Procedures: I&D - Problems (1) Diabetic wet gangrene of the foot Onset Date: 11/24/17 Current Visit: Yes Status: Acute (2) Diabetes Onset Date: 11/24/17 Current Visit: Yes Status: Chronic Qualifiers: Diabetes mellitus type: type 2 Diabetes mellitus complication status: with circulatory complication Diabetes mellitus complication detail: with peripheral angiopathy with gangrene Brief History of Present Illness: See HPI Hospital Course: Overall during the hospital stay patient remained stable Initially patient was admitted to Dr. Houston while however patient wanted a 2nd opinion from a hospitalist group and thus we were consulted to take care of the patient. Patient was admitted initially for osteomyelitis of the right foot with a wet gangrene. Patient did have similar symptoms in the past and had wound care with Dr. Fuller and had significant improvement thus patient wanted to do wound care and IV abx. Initially was initially kept on IV antibiotics here in the hospital and had I&D done with general surgery. MRI of the foot was done which was consistent with osteomyelitis. ID was consulted at that time , who recommended 6 weeks of IV antibiotics along with wound care. Wound culture + for Providencia sensitive to zosyn and meropenum. Patient was then referred to a long-term acute care facility and [facility]. Patient thus will be transferred to [facility] for 6 weeks of antibiotics and wound care with ID. Vital Signs/Physical Exam: Temp Pulse Resp BP Pulse Ox 97.8 F 91 H 16 180/76 H 98 11/28/17 16:00 11/28/17 16:00 11/28/17 16:00 11/28/17 16:00 11/28/17 16:00 General: Alert, In no apparent distress HEENT: Atraumatic, PERRLA, EOMI Neck: Supple, JVD not distended Respiratory: Clear to auscultation bilaterally, Normal air movement Cardiovascular: Regular rate/rhythm, Normal S1 S2 Gastrointestinal: Normal bowel sounds, No tenderness Musculoskeletal: Erythema, Warmth Integumentary: No rashes Neurological: Normal speech, Normal tone, Normal affect Lymphatics: No axilla or inguinal lymphadenopathy Laboratory Data at Discharge: WBC 8.5 K/uL (4.3-10.9) 11/27/17 04:32 Hgb 10.4 g/dL (12.0-15.0) L 11/27/17 04:32 Hct 31.6 % (36.0-45.0) L 11/27/17 04:32 Plt Count 331 K/uL (152-406) 11/27/17 04:32 PT 11.9 SECONDS (9.5-12.5) 11/23/17 16:00 INR 1.01 11/23/17 16:00 APTT 25.9 SECONDS (24.3-36.9) 11/23/17 16:00 Sodium 135 mEq/L (135-145) 11/27/17 04:32 Potassium 4.6 mEq/L (3.6-5.0) 11/27/17 04:32 BUN 26 mg/dL (6-20) H 11/27/17 04:32 Creatinine 1.16 mg/dL (0.44-1.00) H 11/27/17 04:32 Glucose 76 mg/dL (65-120) 11/27/17 04:32 Total Bilirubin 0.2 mg/dL (0.3-1.2) L 11/27/17 04:32 AST 35 IU/L (10-42) 11/27/17 04:32 ALT 37 IU/L (10-60) 11/27/17 04:32 Alkaline Phosphatase 54 IU/L (42-121) 11/27/17 04:32 Home Medications: Glipizide [Glucotrol Xl] 10 mg PO BID 01/24/13 Aloe Vera 350 mg PO DAILY 07/13/17 Aspirin [Aspirin EC 81 MG] 81 mg PO DAILY 07/13/17 Atorvastatin Calcium [Lipitor*] 10 mg PO BEDTIME 07/13/17 Bimatoprost [Lumigan Opthalmic Drops*] 2.5 ml EACH EYE DAILY 07/13/17 Brimonidine Tartrate/Timolol [Combigan 0.2%-0.5% Eye Drops] 2.5 ml EACH EYE BID 07/13/17 Cinnamon Bark [Cinnamon] 500 mg PO DAILY 07/13/17 Folic Acid/Mv,Fe,Min [One Daily Complete Tablet] 1 each PO DAILY 07/13/17 Lisinopril 20 mg PO DAILY 07/13/17 Sitagliptin Phosphate [Januvia*] 100 mg PO DAILY 07/13/17 Metformin HCl 1,000 mg PO BID 11/23/17 Followup: Ej Fuller MD [ACTIVE - CAN ADMIT] - 1 Week Dyllan Richardson MD [ACTIVE - CAN ADMIT] - 1 Week
[2017-11-28] MEDS: ATORVASTATIN 10 MG TAB PO SCH (20:25)
[2017-11-28 20:48] VITALS: BP 163/74
[2017-11-28 22:02] VITALS: O2SAT 98
== END 2017-11-28 21:53 | DRG 264 ==
LOC: 2ND 14:04
PROVIDERS: ADMIT Internal Medicine; ATTEND Family Medicine
PROC: 0JBQ0ZZ Excision of Right Foot Subcutaneous Tissue and Fascia, Open Approach (ICD-10-PCS; principal; 2017-11-25 12:30)
DX: E11.52 Type 2 diabetes mellitus with diabetic peripheral angiopathy with gangrene (principal); M86.172 Other acute osteomyelitis, left ankle and foot; E11.628 Type 2 diabetes mellitus with other skin complications; B95.1 Streptococcus, group B, as the cause of diseases classified elsewhere; B96.4 Proteus (mirabilis) (morganii) as the cause of diseases classified elsewhere; L03.031 Cellulitis of right toe; I10 Essential (primary) hypertension; E78.5 Hyperlipidemia, unspecified
CPT/HCPCS: 36415; 71045; 71046; 80048; 80053; 81003; 81015; 82962; 83036; 85025; 85610; 85652; 85730; 87070; 87075; 87077; 87185; 87186; 87205; 88304; 93005; 99214; J1650; J2250; J2370; J2405; J2543; J3010; J3590; J7030

== ENCOUNTER 2019-11-13 07:11 | Emergency (ER) | payer OTHER ==
[2019-11-13 09:22] VITALS: BP 187/99; TEMP 97.5; O2SAT 98
== END 2019-11-13 08:58 | disposition home or self-care (01) ==
LOC: ER 07:11
DX: M54.42 Lumbago with sciatica, left side (principal); I10 Essential (primary) hypertension; Z91.040 Latex allergy status; Z91.048 Other nonmedicinal substance allergy status
CPT/HCPCS: 93971; 99283

== ENCOUNTER 2020-12-15 10:20 | Inpatient (IN) | payer OTHER ==
--- OUTSIDE RECORDS SUMMARY | 2020-12-15 13:01 | XMS REPORT | Continuity of Care Document ---
:1965 Author Organization [facility] t Address [address] [place] [address] Care Team Providers Name Role Phone Shahid MADERA Attending Clinician Problems Condition Condition Condition Status Onset Resolution Last Treating Co mments Source Name Details Category Date Date Treatment Clinician Date Pain in Pain in Diagnosis Active [facility] Closed Closed Diagnosis Active [facility] displaced displaced [facility] - fracture fracture Memori a of distal of distal l phalanx of phalanx of Ou tpati right right ent great toe great toe Clin ics with with routine routine healing, healing, subsequent subsequent encounter encounter Allergies, Adverse Reactions, Alerts Allergy Allergy Status Severity Reaction(s) Onset Inactive Treating Comm ents Source Name Type Date Date Clinician Latex Adverse Active Info Not [facility] Reaction Available [facility] Medications Ordered Filled Start Stop Current Ordering Indication Dosage Frequency Signature Comments Components Source Medication Medication Date Date Medication? Clinician (SIG) Name Name GlipiZIDE GlipiZIDE Yes Bakari not [facility] defined [facility] MetFORMIN MetFORMIN Yes Bakari not [facility] HCl ER HCl ER Torres defined [facility] Aspirin Aspirin Yes Bakari [address] [facility] Atorvastati Atorvastati Yes Bakari not [facility] n Calcium n Calcium Torres defined Jerica kes [facility] Januvia Januvia Yes Bakari not [facility] defined [facility] Lisinopril Lisinopril Yes Bakari not [facility] defined [facility] Procedures This patient has no known procedures. Encounters Start End Encounter Admission Attending Care Care Encounter Source Date/Time Date/Time Type Type Clinicians Facility Department ID 2020-11-26 2020-11-26 Office [place] [facility] [id number] 13:45:19 15:47:52 Visit Raymundo Fraser [id number] Jace [id number] Anjelica [id number] formerly [facility] 044 [facility] 2018-03-06 2018-03-06 [facility] [id number] 10:30:00 10:30:00 t [facility] ent [facility] Results This patient has no known results.
[2020-12-15] MEDS ORDERED: GLUCAGON 1 MG/VIAL IM PRN (14:00)
[2020-12-15] MEDS ORDERED: D50W 25 GM/50 ML VIAL IV PRN (14:12)
[2020-12-15 14:36] VITALS: BMI 44.1
[2020-12-15] MEDS ORDERED: VANCOMYCIN 2 GM in NA CHLORIDE 0.9% 500 ML IVPB SCH (16:00)
[2020-12-15] MEDS ORDERED: ONDANSETRON 4 MG/2 ML VIAL IV PRN (16:07)
[2020-12-15] MEDS ORDERED: ACETAMINOPHEN 500 MG TAB PO PRN (16:07)
[2020-12-15] MEDS ORDERED: HYDROCODONE/APAP 5/325 MG TAB PO PRN (16:10)
--- NOTE | 2020-12-15 16:41 | P.CNS ---
Reason for Consult: Medical management Requesting Physician: Ej Fuller Chief Complaint: Left foot diabetic ulcer and Left leg cellulitis History of Present Illness: Patient is a 55-year-old female with a past medical history significant for DM 2 with diabetic foot ulcer, HTN, hyperlipidemia, hypertension, glaucoma, obesity who presents with complaint of left foot diabetic ulcer and left leg cellulitis after being referred by her infectious disease MD to come to the hospital. Patient reported that she noticed left foot diabetic ulcer 3 weeks ago and has been following up with her infectious disease doctor at [facility] weekly. Noted associated s\s include left leg redness. Patient denies any other signs and symptoms. Symptoms are aggravated and or relieved by nothing. Patient saw her infectious disease MD last and patient was instructed to come to the hospital today for possible debridement and antibiotics administration. Allergies latex Allergy (Mild, Verified 11/25/17 00:37) Itching Home Medications: Glipizide [Glucotrol Xl] 10 mg PO BID 01/24/13 Aspirin [Aspirin EC 81 MG] 81 mg PO DAILY 07/13/17 Atorvastatin Calcium [Lipitor*] 10 mg PO BEDTIME 07/13/17 Bimatoprost [Lumigan Opthalmic Drops*] 2.5 ml EACH EYE DAILY 07/13/17 Brimonidine Tartrate/Timolol [Combigan 0.2%-0.5% Eye Drops] 2.5 ml EACH EYE BID 07/13/17 Cinnamon Bark [Cinnamon] 500 mg PO TID 07/13/17 Folic Acid/Multivit,Iron,Wet [place] [One Daily Complete Tablet] 1 each PO DAILY 07/13/17 lisinopriL [Lisinopril] 20 mg PO DAILY 07/13/17 Metformin HCl 1,000 mg PO BID 11/23/17 Ciprofloxacin HCl 500 mg PO BID 12/15/20 Metformin HCl [Glucophage] 500 mg PO DAILY 12/15/20 Metoprolol Tartrate 25 mg PO BID 12/15/20 Repaglinide 1 tab PO TID 12/15/20 - Past Medical/Surgical History Diabetic: Yes -: DM type 2 -: hyperlipidemia -: htn -: osteomylitis in right toe -: diabetic retinopathy -: x1 -: eye surgery 1 yr and 5yrs ago - Family History Father Medical History: Diabetes, Cancer Notes: bone cancer Mother Medical History: Cancer Notes: cervical - Social History Smoking Status: Never smoker Alcohol use: No CD- Drugs: No Caffeine use: Yes Place of Residence: Home Review of Systems General: Unremarkable Eyes: Unremarkable ENT: Unremarkable Respiratory: Unremarkable Cardiovascular: Unremarkable Gastrointestinal: Unremarkable Genitourinary: Unremarkable Musculoskeletal: Unremarkable Integumentary: Other (Left foot diabetic ulcer and left leg redness ) Neurological: Unremarkable Lymphatics: Unremarkable Physical Examination Temp Pulse Resp BP Pulse Ox 97.5 F 80 17 168/88 H 99 12/15/20 16:00 12/15/20 16:00 12/15/20 16:00 12/15/20 16:00 12/15/20 16:00 General: Alert, In no apparent distress, Oriented x3 HEENT: Atraumatic, PERRLA, Mucous membr. moist/pink, EOMI, Sclerae nonicteric Neck: Supple, 2+ carotid pulse no bruit, No LAD, Without JVD or thyroid abnormality Respiratory: Clear to auscultation bilaterally, Normal air movement Cardiovascular: No edema, Regular rate/rhythm, Normal S1 S2 Capillary refill: <2 Seconds Gastrointestinal: Normal bowel sounds, No tenderness Musculoskeletal: No clubbing, No swelling, No tenderness Integumentary: No rashes, Erythema, Diabetic ulcer Neurological: Normal gait, Normal speech, Normal tone, Normal affect Lymphatics: No axilla or inguinal lymphadenopathy External genitalia: Deferred Rectal: Deferred Conclusions/Impression: --Left Leg cellulitis. Infectious disease MD on board. Blood cultures pending. Continue antibiotics. --Left foot diabetic ulcer. Wound cultures pending. Surgeon consulted. Continue antibiotics. Wound care per ID instructions. We will await further recommendations from the ID doctor and Surgeon. --Hypertension. Poorly controlled. Will continue home medications and labetalol prn --DM 2. BS monitoring with sliding scale insulin. --Glaucoma. Continue home medications. -- Hyperlipidemia. Continue statin. --DVT prophylaxis with SCDs. Critical Care: No
[2020-12-15 17:02] LABS: Urine Appearance CLEAR (Clear); Urine Bilirubin NEGATIVE (Negataive); Urine Blood TRACE (Negative); Urine Color YELLOW (Yellow); Urine Glucose 2+ (Negative); Urine Protein 3+ (Negative); Urine Specific Gravity 1.025 (1.005-1.030); Urine pH 6.5 (5.0-7.0)
[2020-12-15 17:04] LABS: Urine Microscopic Reflex ORDER UMIC
[2020-12-15 17:12] LABS: Urine Bacteria <20 /HPF (<20)
[2020-12-15 17:13] LABS: Urine Mucus 1+ /HPF (NONE SEEN)
[2020-12-15 17:29] LABS: Absolute Lymphocytes (CBC) 1.8 K/uL (0.7-4.9); Albumin 2.1 g/dL (3.4-5.0); Bilirubin Total 0.4 mg/dL (0.2-1.0); Hematocrit 31.1 % (36.0-45.0); Lymphocytes % 13.7 % (15.3-44.8); MPV 8.7 fL (7.6-11.3); Potassium 3.8 mmol/L (3.5-5.1); Protein, Total 8.1 g/dL (6.4-8.2); RBC Red Blood Cell Count 3.89 M/uL (3.86-4.86)
[2020-12-15] MEDS: INSULIN -REGULAR HUMAN 50 UNIT/0.5 ML ML SQ SCH ×2 (17:31→20:25)
[2020-12-15] MEDS: LABETALOL 20 MG/4ML SYRINGE IV PRN (18:30)
[2020-12-15] MEDS: METOPROLOL TAR 25 MG TAB PO SCH (20:24)
[2020-12-15] MEDS: ATORVASTATIN 10 MG TAB PO SCH (20:24)
[2020-12-15] MEDS: CEFEPIME/SWI 1gm 10 ML IVP SCH (20:25)
[2020-12-15] MEDS: Cinnamon Bark 500 MG Capsule PO SCH (20:28)
[2020-12-15] MEDS: TIMOLOL OPTH SCH (20:29)
[2020-12-15] MEDS: BRIMONIDINE TARTRATE OPTH SCH (20:29)
[2020-12-15] MEDS ORDERED: CEFEPIME 1 GM/10 ML SYR IV SCH (21:00)
[2020-12-15 22:47] LABS: Blood Morphology Comment NOT SEEN (NOT SEEN); Platelet Estimate ADEQ
[2020-12-16 06:17] LABS: Absolute Lymphocytes (CBC) 1.6 K/uL (0.7-4.9); Basophils % 1.1 % (0-1.3); Hematocrit 25.1 % (36.0-45.0); Lymphocytes % 15.3 % (15.3-44.8); MPV 8.3 fL (7.6-11.3); RBC Red Blood Cell Count 3.18 M/uL (3.86-4.86)
[2020-12-16 06:28] LABS: Magnesium 1.9 mg/dL (1.8-2.4); Potassium 3.5 mmol/L (3.5-5.1)
[2020-12-16] MEDS: INSULIN -REGULAR HUMAN 50 UNIT/0.5 ML ML SQ SCH ×4 (07:30→20:59)
[2020-12-16] MEDS: TIMOLOL OPTH SCH ×2 (08:35→19:39)
[2020-12-16] MEDS: BRIMONIDINE TARTRATE OPTH SCH ×2 (08:35→19:39)
[2020-12-16] MEDS: Cinnamon Bark 500 MG Capsule PO SCH ×3 (08:35→19:39)
[2020-12-16] MEDS: BIMATOPROST OPHTH DROPS/2.5 ML BTL OPTH SCH (08:36)
[2020-12-16] MEDS: METOPROLOL TAR 25 MG TAB PO SCH ×2 (08:39→20:59)
[2020-12-16] MEDS: lisinopriL 20 MG TAB PO SCH (08:39)
[2020-12-16] MEDS: ASPIRIN EC 81 MG TAB PO SCH ×2 (08:44→10:39)
[2020-12-16] MEDS: MULTIVIT W/ MINERAL TAB PO SCH ×2 (08:44→10:38)
[2020-12-16] MEDS ORDERED: POVIDONE-IODINE 118.25 ML BOTTLE TOP SCH (09:00)
[2020-12-16] MEDS: POTASSIUM CL SA 10 MEQ TAB PO ONE ×2 (09:00→10:39)
[2020-12-16] MEDS ORDERED: MULTIVIT IRON MINER PO SCH (09:00)
[2020-12-16] MEDS ORDERED: FOLIC ACID PO SCH (09:00)
--- NOTE | 2020-12-16 09:00 | P.PN ---
Subjective Date of Service: 12/16/20 Primary Care Provider: Dr. Mathew([facility]) Chief Complaint: Left foot diabetic ulcer and Left leg cellulitis Subjective: Doing well Physical Examination - Vital Signs Temperature: 97.1 F Blood Pressure: 166/82 Pulse: 86 Respirations: 20 Pulse Ox (%): 96 - Studies Laboratory Data (last 24 hrs) 12/16/20 05:33: Sodium 139, Potassium 3.5, BUN 12, Creatinine 1.72 H, Glucose 225 H, Magnesium 1.9, Triglycerides 138, Cholesterol 97, HDL Cholesterol 24 L, Cholesterol/HDL Ratio 4.04 12/16/20 05:33: WBC 10.40 D, Hgb 8.1 L, Hct 25.1 L D, Plt Count 416 H 12/15/20 17:06: Sodium 137, Potassium 3.8, BUN 13, Creatinine 1.65 H, Glucose 251 H, Total Bilirubin 0.4, AST 12 L, ALT 14, Alkaline Phosphatase 73 12/15/20 17:06: WBC 13.50 H, Hgb 9.6 L, Hct 31.1 L, Plt Count 355 Assessment & Plan Discharge Plan: Home Plan to discharge in: Greater than 2 days Physician Review Additional Text: Physical Exam: GENERAL: The patient is a well-developed, well-nourished, in no apparent distress. Alert and oriented x3. VITAL SIGNS: Reviewed HEENT: Mouth is well hydrated and without lesions. Mucous membranes are moist. NECK: Supple. No carotid bruits. No lymphadenopathy or thyromegaly. LUNGS: Clear to auscultation. No crackles or wheezes are heard. HEART: Regular rate and rythem, no appreciable gallops, rubs, murmurs or extra heart sounds ABDOMEN: Soft, nontender, and nondistended. Positive bowel sounds. No hepatosplenomegaly was noted. EXTREMITIES:Erythema to the left lower ext with swelling. Bandage in place to the left heel. NEUROLOGIC: The patient is oriented to person, place and time. Strength and sensation are grossly intact. Face is symmetric. SKIN: Normal color, turgor and temperature. No ulcerations or rashes noted. Impression: Left diabetic foot ulcer with cellulitis Diabetes mellitus type 2 insulin-dependent with hyperglycemia Hypertension Chronic renal disease stage III Hyperlipidemia Glaucoma Anemia of chronic disease Plan: Left diabetic foot ulcer with cellulitis, : Continue with IV antibiotic therapy. Currently on cefepime and vancomycin. Patient n.p.o. at this time. Surgery to evaluate left foot ulcer. Patient may require debridement. Await further recommendations from surgery. Also will discuss with infectious disease who admitted patient. Will discuss plan of care. Anticipate improvement over the next several days with likely discharge home. Diabetes mellitus type 2 with hyperglycemia: A1c pending. Continue Lantus. Will adjust accordingly. Discontinue Metformin due to chronic renal disease. Hold Glucotrol. Patient will require Lantus at discharge. Accu-Cheks in place. Hypertension: Restart home medicationlisinopril and metoprolol. Will monitor and adjust appropriately. Chronic renal disease stage III: We will monitor renal function closely. Will consider nephrology consultation if this declines. Hyperlipidemia: Continue home medication Glaucoma: Continue home medication Anemia of chronic disease: We will check iron and B12 studies. We will monitor this closely. Code Status: Full Code DVT prophylaxis: Lovenox Advanced Care Planning-30 minutes: Plan of care for the patient's discharge was discussed in detail with the patient. Plan is for the patient to return home at discharge. Time Spent Managing Pts Care (In Minutes): 55
[2020-12-16] MEDS: CEFEPIME/SWI 1gm 10 ML IVP SCH ×2 (10:38→21:00)
--- NOTE | 2020-12-16 11:02 | P.CNS ---
Date of Consult: 12/16/20 Primary Care Provider: Dr. Mathew([facility]) Chief Complaint: Left foot diabetic ulcer and Left leg cellulitis History of Present Illness: Patient is a 55-year-old female with a past medical history significant diabetes type 2, hypertension, hyperlipidemia, glaucoma, morbid obesity, history of right 5th phalanx diabetic ulcer, and left heel diabetic ulcer who was well known to Dr. Fuller and has seen him in the clinic off and on for the past 3 years. The patient was last seen by Dr. Fuller in the clinic on of last week. He advised the patient to go to Hospital due to left leg cellulitis and need for surgical debridement of left heel wound. Vitals: Patient remains afebrile with a T-max is 97.1. Patient is hypertensive with a blood pressure 166/82 despite being on multiple antihypertensive agents. Patient has anemia with a hemoglobin of 8.1, iron panel pending. Wound culture pending. Patient denies nausea, vomiting, diarrhea, chest pain. Patient endorses some pain to the left lower extremity/heel. Allergies latex Allergy (Mild, Verified 11/25/17 00:37) Itching Home Medications: Glipizide [Glucotrol Xl] 10 mg PO BID 01/24/13 Aspirin [Aspirin EC 81 MG] 81 mg PO DAILY 07/13/17 Atorvastatin Calcium [Lipitor*] 10 mg PO BEDTIME 07/13/17 Bimatoprost [Lumigan Opthalmic Drops*] 2.5 ml EACH EYE DAILY 07/13/17 Brimonidine Tartrate/Timolol [Combigan 0.2%-0.5% Eye Drops] 2.5 ml EACH EYE BID 07/13/17 Cinnamon Bark [Cinnamon] 500 mg PO TID 07/13/17 Folic Acid/Multivit,Iron,Titus [One Daily Complete Tablet] 1 each PO DAILY 07/13/17 lisinopriL [Lisinopril] 20 mg PO DAILY 07/13/17 Metformin HCl 1,000 mg PO BID 11/23/17 Ciprofloxacin HCl 500 mg PO BID 12/15/20 Metformin HCl [Glucophage] 500 mg PO DAILY 12/15/20 Metoprolol Tartrate 25 mg PO BID 12/15/20 Repaglinide 1 tab PO TID 12/15/20 - Past Medical/Surgical History Diabetic: Yes -: DM type 2 -: hyperlipidemia -: htn -: osteomylitis in right toe -: diabetic retinopathy -: x1 -: eye surgery 1 yr and 5yrs ago - Family History Father Medical History: Diabetes, Cancer Notes: bone cancer Mother Medical History: Cancer Notes: cervical - Social History Smoking Status: Never smoker Alcohol use: No CD- Drugs: No Caffeine use: Yes Place of Residence: Home Review of Systems 10-point ROS is otherwise unremarkable Physical Examination Temp Pulse Resp BP Pulse Ox 97.1 F 86 20 166/82 H 96 12/16/20 09:10 12/16/20 09:10 12/16/20 09:10 12/16/20 09:10 12/16/20 09:10 General: Alert, In no apparent distress, Obese HEENT: Atraumatic, Normocephalic Neck: Supple, 2+ carotid pulse no bruit Respiratory: Clear to auscultation bilaterally, Normal air movement Cardiovascular: No edema, Normal pulses Capillary refill: <2 Seconds Gastrointestinal: Normal bowel sounds, Soft and benign Musculoskeletal: No clubbing, No swelling Integumentary: Other (End right 5th total diabetic wound, on left lower extremity cellulitis with erythema and swelling, left heel diabetic foot wound) Laboratory Data (last 24 hrs) 12/16/20 05:33: Sodium 139, Potassium 3.5, BUN 12, Creatinine 1.72 H, Glucose 225 H, Magnesium 1.9, Triglycerides 138, Cholesterol 97, HDL Cholesterol 24 L, Cholesterol/HDL Ratio 4.04 12/16/20 05:33: WBC 10.40 D, Hgb 8.1 L, Hct 25.1 L D, Plt Count 416 H 12/15/20 17:06: Sodium 137, Potassium 3.8, BUN 13, Creatinine 1.65 H, Glucose 251 H, Total Bilirubin 0.4, AST 12 L, ALT 14, Alkaline Phosphatase 73 12/15/20 17:06: WBC 13.50 H, Hgb 9.6 L, Hct 31.1 L, Plt Count 355 Conclusions/Impression: Antibiotics: Vancomycin Start: 12/15 stop:-- Cefepime Start: 12/15 Stop:-- Assessment: 1. Left heel diabetic ulcer 2. [id number] toe ulcer-healing 3. Anemia 4. Morbid obesity 5. Diabetes mellitus type 2 uncontrolled 6. Hypertension uncontrolled Plan: 1. Left heel wound cultures pending. Patient to undergo wound debridement tomorrow. The meantime dressing well include santal daily. Continue to elevate the leg. Intrigued continue broad-spectrum antibiotic coverage with vancomycin and cefepime. 2. Healing, cover with foam and protect. 3. Continue to monitor the H&H, iron panel pending -medical management per primary team -continue to monitor CBC and BMP -continue to monitor for signs of infection Plan of care discussed with Dr. Fuller. Thank you for consultation
[2020-12-16 11:18] LABS: Ferritin 109.5 ng/mL (8-388)
[2020-12-16] MEDS: LABETALOL 20 MG/4ML SYRINGE IV PRN (12:04)
--- NOTE | 2020-12-16 16:09 | CON ---
Date of Consultation: 12/16/2020 Reason For Service: Left foot necrotic diabetic ulcer. History Of Present Illness: This is the case of a 55-year-old patient with multiple medical problems and that include also lymphedema, diabetes, and neuropathy, who comes to us with a necrotic left satya t ulcer and cellulitis of the leg. The patient was admitted for cellulitis of the leg and a surgical consult was obtained for possible debridement of the left heel area. She denies any specific trauma , although her legs are heavy and she tends to sleep and put pressure on them. Medications: Including Glucotrol, aspirin, Lipitor, lisinopril, Glucophage, metoprolol. Past Medical History: Medical problems include hyperlipidemia, hypertension, morbid obesity, diabete s, retinopathy, neuropathy. Past Surgical History: Includes . Social History: She does not smoke. She does not drink alcohol. Family History: Diabetes. Review of Systems: As above. Ten points otherwise unremarkable. Physical Examination: General: The patient is awake, alert, no distress. HEENT: Pupils anicteric. Neck: Supple. Chest: Clear. Abdomen: Soft and depressible. Extremities: Good capillary refill. Diminished peripheral pulses bilaterally. No cyanosis. Had pe ripheral neuropathy at the area of the toes, but there is still sensation in the foot. Integumentary: Shows a necrotic left heel ulcer with cellulitis present over the area also of the di stal leg region. Laboratory Data: The patient has venous study done, but it was few years ago. I also saw some arter ial studies done in 2018 and the report of that cannot be obtained at this moment. The computer does not let me go back there. Still I believe it needs to be repeated. Assessment: A 55-year-old patient with necrotic ulcer in the left leg, cellulitis of the leg. We re commend her to have debridement of that region with benefits, alternatives, and risks including, but not limited to infection, bleeding, damage to adjacent structures, anesthesia complication, nonhealin g wound, TN, and even . She also understands this may not relieve any symptoms. She might need more than one surgical intervention. I believe the anterior Dopplers should be repeated to see the circulation, and we will go in that area. She has no Homans signs, no calf tenderness at this moment . She understands the importance of diabetes control, a diet, weight loss and offloading. The patie nt will be kept n.p.o. after midnight. The patient already booked in OR. CINDY/RUBINA Voice ID: [id number] Report ID: [id number]
[2020-12-16] MEDS: ATORVASTATIN 10 MG TAB PO SCH (20:59)
[2020-12-17 03:38] LABS: Absolute Lymphocytes (CBC) 1.3 K/uL (0.7-4.9); Basophils % 0.7 % (0-1.3); Hematocrit 26.1 % (36.0-45.0); Lymphocytes % 12.6 % (15.3-44.8); MPV 7.9 fL (7.6-11.3); RBC Red Blood Cell Count 3.31 M/uL (3.86-4.86)
[2020-12-17 03:45] LABS: Magnesium 1.8 mg/dL (1.8-2.4); Potassium 3.6 mmol/L (3.5-5.1)
[2020-12-17] MEDS: VANCOMYCIN 2 GM in NA CHLORIDE 0.9% 500 ML IVPB SCH (03:50)
[2020-12-17] MEDS: INSULIN -REGULAR HUMAN 50 UNIT/0.5 ML ML SQ SCH ×4 (07:30→21:24)
[2020-12-17] MEDS: lisinopriL 20 MG TAB PO SCH (07:58)
[2020-12-17] MEDS: METOPROLOL TAR 25 MG TAB PO SCH ×2 (07:59→21:23)
[2020-12-17] MEDS: CEFEPIME/SWI 1gm 10 ML IVP SCH ×2 (08:00→21:27)
[2020-12-17] MEDS: BRIMONIDINE TARTRATE OPTH SCH ×2 (08:01→21:00)
[2020-12-17] MEDS: TIMOLOL OPTH SCH ×2 (08:01→21:00)
[2020-12-17] MEDS: BIMATOPROST OPHTH DROPS/2.5 ML BTL OPTH SCH (08:01)
[2020-12-17] MEDS: Cinnamon Bark 500 MG Capsule PO SCH ×3 (08:01→21:00)
[2020-12-17] MEDS: ASPIRIN EC 81 MG TAB PO SCH ×2 (08:11→19:05)
[2020-12-17] MEDS: MULTIVIT W/ MINERAL TAB PO SCH ×2 (08:11→19:05)
[2020-12-17] MEDS: COLLAGENASE 30 GM OINTMENT TOP SCH (08:57)
--- NOTE | 2020-12-17 10:33 | P.PN ---
Subjective Date of Service: 12/17/20 Primary Care Provider: Dr. Mathew([facility]) Chief Complaint: Left foot diabetic ulcer and Left leg cellulitis Patient seen examined at bedside, I am hemoglobin A1c is 10.0. Patient scheduled for wound debridement today. Patient is feeling well, remained NPO since midnight. Physical Examination - Vital Signs Temperature: 98.0 F Blood Pressure: 192/96 Pulse: 101 Respirations: 18 Pulse Ox (%): 97 - Studies Laboratory Data (last 24 hrs) 12/17/20 03:04: WBC 10.50, Hgb 8.5 L, Hct 26.1 L, Plt Count 484 H 12/17/20 03:04: Sodium 140, Potassium 3.6, BUN 12, Creatinine 1.58 H, Glucose 242 H, Magnesium 1.8 Microbiology Data (last 24 hrs): 12/15/20 16:25 Wound - Left Heel Gram Stain - Final Assessment And Plan - Plan General: Alert, In no apparent distress, Obese HEENT: Atraumatic, Normocephalic Neck: Supple, 2+ carotid pulse no bruit Respiratory: Clear to auscultation bilaterally, Normal air movement Cardiovascular: No edema, Normal pulses Capillary refill: <2 Seconds Gastrointestinal: Normal bowel sounds, Soft and benign Musculoskeletal: No clubbing, No swelling Integumentary: Other (End right 5th total diabetic wound, on left lower extremity cellulitis with erythema and swelling, left heel diabetic foot wound) Laboratory Data (last 24 hrs) Antibiotics: Vancomycin Start: 12/15 stop:-- Cefepime Start: 12/15 Stop:-- Assessment: 1. Left heel diabetic ulcer 2. Vigmr6ja toe ulcer-healing 3. Anemia 4. Morbid obesity 5. Diabetes mellitus type 2 uncontrolled 6. Hypertension uncontrolled Plan: 1. Left heel wound cultures pending. Patient to undergo wound debridement today. The meantime dressing well include santal daily. Continue to elevate the leg. Continue broad-spectrum antibiotic coverage with vancomycin and cefepime. Antibiotic course duration will be based off how deep the wound is and os surgical debridement performed today. 2. Healing, cover with foam and protect. 3. Continue to monitor the H&H, iron panel pending -hemoglobin A1c of 10.0, continue to monitor glucose levels. -medical management per primary team -continue to monitor CBC and BMP -continue to monitor for signs of infection Plan of care discussed with Dr. Fuller. Thank you for consultation Physician Review Additional Text: Physical Exam: GENERAL: The patient is a well-developed, well-nourished, in no apparent distress. Alert and oriented x3. VITAL SIGNS: Reviewed HEENT: Mouth is well hydrated and without lesions. Mucous membranes are moist. NECK: Supple. No carotid bruits. No lymphadenopathy or thyromegaly. LUNGS: Clear to auscultation. No crackles or wheezes are heard. HEART: Regular rate and rythem, no appreciable gallops, rubs, murmurs or extra heart sounds ABDOMEN: Soft, nontender, and nondistended. Positive bowel sounds. No hepatosplenomegaly was noted. EXTREMITIES:Erythema to the left lower ext with swelling. Bandage in place to the left heel. NEUROLOGIC: The patient is oriented to person, place and time. Strength and sensation are grossly intact. Face is symmetric. SKIN: Normal color, turgor and temperature. No ulcerations or rashes noted. Impression: Left diabetic foot ulcer with cellulitis Diabetes mellitus type 2 insulin-dependent with hyperglycemia Hypertension Chronic renal disease stage III Hyperlipidemia Glaucoma Anemia of chronic disease Plan: Left diabetic foot ulcer with cellulitis, : Continue with IV antibiotic therapy. Currently on cefepime and vancomycin. Patient n.p.o. at this time. Surgery to evaluate left foot ulcer. Patient may require debridement. Await further recommendations from surgery. Also will discuss with infectious disease who admitted patient. Will discuss plan of care. Anticipate improvement over the next several days with likely discharge home. Diabetes mellitus type 2 with hyperglycemia: A1c pending. Continue Lantus. Will adjust accordingly. Discontinue Metformin due to chronic renal disease. Hold Glucotrol. Patient will require Lantus at discharge. Accu-Cheks in place. Hypertension: Restart home medicationlisinopril and metoprolol. Will monitor and adjust appropriately. Chronic renal disease stage III: We will monitor renal function closely. Will consider nephrology consultation if this declines. Hyperlipidemia: Continue home medication Glaucoma: Continue home medication Anemia of chronic disease: We will check iron and B12 studies. We will monitor this closely. Code Status: Full Code DVT prophylaxis: Lovenox Advanced Care Planning-30 minutes: Plan of care for the patient's discharge was discussed in detail with the patient. Plan is for the patient to return home at discharge.
[2020-12-17] MEDS ORDERED: MAGNESIUM SULFATE 1 gm IVPB 1 GM/100 ML BAG IV ONE (12:00)
[2020-12-17] MEDS ORDERED: POTASSIUM CL SA 10 MEQ TAB PO ONE (12:00)
[2020-12-17] MEDS ORDERED: NA CHLORIDE 0.9% 1,000 ML ONE (13:01)
[2020-12-17] MEDS ORDERED: MIDAZOLAM HCL 2 MG/2 ML INJ ONE (14:22)
[2020-12-17] MEDS ORDERED: FENTANYL CITR 100 MCG/2 ML ONE (14:22)
[2020-12-17] MEDS ORDERED: LIDOCAINE 1% MPF 5 ML VIAL ONE (14:22)
[2020-12-17] MEDS ORDERED: propofoL 200 MG/20 ML VIAL IV ONE (14:22)
--- NOTE | 2020-12-17 14:37 | P.BOP ---
Preoperative diagnosis: Left heel necrotic diabetic ulcer Postoperative diagnosis: same Primary procedure: Excisional debridement Left heel necrotic infected diabetic ulcer 8x6cm Estimated blood loss: <10cc Specimen: culture, necrotic tissue Findings: as above Anesthesia: General
[2020-12-17] MEDS ORDERED: dexAMETHasone 10 MG/ML VIAL ONE (14:46)
[2020-12-17] MEDS ORDERED: ONDANSETRON 4 MG/2 ML VIAL ONE (14:47)
--- NOTE | 2020-12-17 15:28 | P.PN ---
Subjective Date of Service: 12/17/20 Primary Care Provider: Dr. Mathew([facility]) Chief Complaint: Left foot diabetic ulcer and Left leg cellulitis Subjective: Improving, Doing well Physical Examination - Vital Signs Temperature: 98.9 F Blood Pressure: 160/75 Pulse: 86 Respirations: 18 Pulse Ox (%): 95 - Physical Exam General: Alert Respiratory: Clear to auscultation bilaterally Cardiovascular: Normal pulses Gastrointestinal: Normal bowel sounds Integumentary: Other (Patient to have surgery to the left heel) - Studies Laboratory Data (last 24 hrs) 12/17/20 03:04: WBC 10.50, Hgb 8.5 L, Hct 26.1 L, Plt Count 484 H 12/17/20 03:04: Sodium 140, Potassium 3.6, BUN 12, Creatinine 1.58 H, Glucose 242 H, Magnesium 1.8 Medications List Reviewed: Yes Assessment & Plan Discharge Plan: Home Plan to discharge in: 48 Hours Physician Review Additional Text: Physical Exam: GENERAL: Vital signs stable. Patient alert VITAL SIGNS: Reviewed Heart: Regular rate Lungs: Clear to auscultation Extremities: Unchanged Impression: Left diabetic foot ulcer with cellulitis Diabetes mellitus type 2 insulin-dependent with hyperglycemia Hypertension Chronic renal disease stage III Hyperlipidemia Glaucoma Anemia of chronic disease Plan: Left diabetic foot ulcer with cellulitis, : Continue with IV antibiotic therapy. Currently on cefepime and vancomycin. Patient n.p.o. at this time. Surgery to have debridement of the left heel. Will discuss with infectious disease with plan of care thereafter. Likely home in the next couple of days. Diabetes mellitus type 2 with hyperglycemia: A1c 10 Continue Lantus. Will adjust accordingly. Discontinue Metformin due to chronic renal disease. Hold Glucotrol. Patient will require Lantus at discharge. Restart Januvia. Accu- Cheks in place. Hypertension: Continue lisinopril and metoprolol. Will monitor and adjust appropriately. Chronic renal disease stage III: Overall stable Hyperlipidemia: Continue home medication Glaucoma: Continue home medication Anemia of chronic disease: We will monitor this closely. Code Status: Full Code DVT prophylaxis: Lovenox Advanced Care Planning-30 minutes: Plan of care for the patient's discharge was discussed in detail with the patient. Plan is for the patient to return home at discharge. Time Spent Managing Pts Care (In Minutes): 55
[2020-12-17] MEDS: POTASSIUM CL SA 10 MEQ TAB PO ONE (19:05)
[2020-12-17] MEDS: ATORVASTATIN 10 MG TAB PO SCH (21:23)
--- NOTE | 2020-12-17 22:53 | OP ---
Date of Procedure: 12/17/2020 Surgeon: Dyllan Richardson MD Preoperative Diagnosis: Left heel necrotic diabetic ulcer. Postoperative Diagnosis: Left heel necrotic diabetic ulcer. Procedure: Excisional debridement of left heel necrotic infected diabetic ulcer, 8 x 6 cm. Estimated Blood Loss: Less than 10 mL. Specimen: Culture of necrotic tissue. Findings: Necrotic tissue. Anesthesia: General plus local. Indications: This is the case of a 55-year-old patient with multiple medical problems, found to have also left heel necrotic infected diabetic ulcer, need the debridement, also cellulitis of the leg an d foot. The patient understands the benefits, alternatives, and risks, which include, but not limite d to infection, bleeding, damage to adjacent structures, anesthesia complication, nonhealing wound, M I, and even . She also understands this may not relieve any symptoms. She might need more than one surgical intervention. She understood and signed a consent. She understands the importance als o of diabetes control and also off-loading of that area. Procedure In Detail: The patient was brought to the operating room and placed in supine position. A nesthesia was done without complication. A time-out was called. Left foot was prepped and draped in usual sterile fashion. Using an 11 blade, we proceeded to do subcutaneous debridement all the way d own to healthy tissue. Bone was not exposed. The tissue was sent for identification and pathology. The culture was sent. Hemostasis obtained and the area was packed with wet-to-dry dressing. The pa tient tolerated the procedure well. The patient is on her way to recovery in stable condition. CINDY/RUBINA Voice ID: [id number] Report ID: [id number]
[2020-12-18] MEDS: LABETALOL 20 MG/4ML SYRINGE IV PRN ×2 (00:44→12:56)
[2020-12-18 04:27] LABS: Absolute Lymphocytes (CBC) 1.3 K/uL (0.7-4.9); Basophils % 0.8 % (0-1.3); Hematocrit 26.9 % (36.0-45.0); MPV 7.9 fL (7.6-11.3); RBC Red Blood Cell Count 3.41 M/uL (3.86-4.86)
[2020-12-18 04:42] LABS: Magnesium 2.1 mg/dL (1.8-2.4); Potassium 3.7 mmol/L (3.5-5.1)
[2020-12-18] MEDS ORDERED: D50W 25 GM/50 ML SYRINGE IV PRN (05:58)
[2020-12-18] MEDS: INSULIN -REGULAR HUMAN 50 UNIT/0.5 ML ML SQ SCH ×4 (08:23→21:00)
[2020-12-18] MEDS: MULTIVIT W/ MINERAL TAB PO SCH (08:24)
[2020-12-18] MEDS: lisinopriL 20 MG TAB PO SCH (08:24)
[2020-12-18] MEDS: ASPIRIN EC 81 MG TAB PO SCH (08:24)
[2020-12-18] MEDS: Cinnamon Bark 500 MG Capsule PO SCH ×3 (08:25→20:51)
[2020-12-18] MEDS: TIMOLOL OPTH SCH ×2 (08:25→20:50)
[2020-12-18] MEDS: METOPROLOL TAR 25 MG TAB PO SCH (08:25)
[2020-12-18] MEDS: BIMATOPROST OPHTH DROPS/2.5 ML BTL OPTH SCH (08:25)
[2020-12-18] MEDS: BRIMONIDINE TARTRATE OPTH SCH ×2 (08:25→20:50)
[2020-12-18] MEDS: CEFEPIME/SWI 1gm 10 ML IVP SCH ×2 (08:26→20:57)
[2020-12-18] MEDS ORDERED: POTASSIUM CL SA 10 MEQ TAB PO ONE (09:00)
--- NOTE | 2020-12-18 12:02 | P.PN ---
Subjective Date of Service: 12/18/20 Primary Care Provider: Dr. Mathew([facility]) Chief Complaint: Left foot diabetic ulcer and Left leg cellulitis Patient seen examined at bedside, debridement performed yesterday, no complications. Doing well with no acute complaints. Review of Systems 10-point ROS is otherwise unremarkable Physical Examination - Vital Signs Temperature: 97.7 F Blood Pressure: 180/90 Pulse: 95 Respirations: 19 Pulse Ox (%): 96 - Studies Laboratory Data (last 24 hrs) 12/18/20 03:47: Sodium 139, Potassium 3.7, BUN 12, Creatinine 1.40 H, Glucose 204 H, Magnesium 2.1 12/18/20 03:47: WBC 9.70, Hgb 8.6 L, Hct 26.9 L, Plt Count 489 H Medications List Reviewed: Yes Assessment And Plan - Plan General: Alert, In no apparent distress, Obese HEENT: Atraumatic, Normocephalic Neck: Supple, 2+ carotid pulse no bruit Respiratory: Clear to auscultation bilaterally, Normal air movement Cardiovascular: No edema, Normal pulses Capillary refill: <2 Seconds Gastrointestinal: Normal bowel sounds, Soft and benign Musculoskeletal: No clubbing, No swelling Integumentary: Other (End right 5th total diabetic wound, on left lower extremity cellulitis with erythema and swelling, left heel diabetic foot wound) Laboratory Data (last 24 hrs) Antibiotics: Vancomycin Start: 12/15 stop:-- Cefepime Start: 12/15 Stop:-- Assessment: 1. Left heel diabetic ulcer 2. Jmosb0ry toe ulcer-healing 3. Anemia 4. Morbid obesity 5. Diabetes mellitus type 2 uncontrolled 6. Hypertension uncontrolled Plan: 1. Left heel wound cultures pending. Surgical debridement performed on 11/17. Wound care: santyl daily, kerlix, frances wrap. Continue to elevate the leg. Continue broad-spectrum antibiotic coverage with vancomycin and cefepime. Continue antibiotic for 2 weeks. Can DC on oral clindamycin. Important patient takes probiotic for duration of antibiotic course. 2. Healing, cover with foam and protect. 3. Continue to monitor the H&H, iron panel pending -hemoglobin A1c of 10.0, continue to monitor glucose levels. -medical management per primary team -continue to monitor CBC and BMP -continue to monitor for signs of infection Plan of care discussed with Dr. Fuller. Thank you for consultation Physician Review Additional Text: Physical Exam: GENERAL: Vital signs stable. Patient alert VITAL SIGNS: Reviewed Heart: Regular rate Lungs: Clear to auscultation Extremities: Unchanged Impression: Left diabetic foot ulcer with cellulitis Diabetes mellitus type 2 insulin-dependent with hyperglycemia Hypertension Chronic renal disease stage III Hyperlipidemia Glaucoma Anemia of chronic disease Plan: Left diabetic foot ulcer with cellulitis, : Continue with IV antibiotic therapy. Currently on cefepime and vancomycin. Patient n.p.o. at this time. Surgery to have debridement of the left heel. Will discuss with infectious disease with plan of care thereafter. Likely home in the next couple of days. Diabetes mellitus type 2 with hyperglycemia: A1c 10 Continue Lantus. Will adjust accordingly. Discontinue Metformin due to chronic renal disease. Hold Glucotrol. Patient will require Lantus at discharge. Restart Januvia. Accu- Cheks in place. Hypertension: Continue lisinopril and metoprolol. Will monitor and adjust appropriately. Chronic renal disease stage III: Overall stable Hyperlipidemia: Continue home medication Glaucoma: Continue home medication Anemia of chronic disease: We will monitor this closely. Code Status: Full Code DVT prophylaxis: Lovenox Advanced Care Planning-30 minutes: Plan of care for the patient's discharge was discussed in detail with the patient. Plan is for the patient to return home at discharge.
[2020-12-18] MEDS: SITAGLIPTIN PHOS 100 MG TAB PO SCH (12:41)
[2020-12-18] MEDS: COLLAGENASE 30 GM OINTMENT TOP SCH (12:42)
[2020-12-18] MEDS: GLIPIZIDE S.A. 5 MG TAB PO SCH ×2 (12:48→20:59)
--- NOTE | 2020-12-18 14:52 | P.PN ---
Subjective Date of Service: 12/18/20 Primary Care Provider: Dr. Mathew([facility]) Chief Complaint: Left foot diabetic ulcer and Left leg cellulitis Subjective: Improving, Doing well Physical Examination - Vital Signs Temperature: 97.7 F Blood Pressure: 180/90 Pulse: 95 Respirations: 19 Pulse Ox (%): 96 - Studies Laboratory Data (last 24 hrs) 12/18/20 03:47: Sodium 139, Potassium 3.7, BUN 12, Creatinine 1.40 H, Glucose 204 H, Magnesium 2.1 12/18/20 03:47: WBC 9.70, Hgb 8.6 L, Hct 26.9 L, Plt Count 489 H Microbiology Data (last 24 hrs): 12/17/20 14:35 Wound - Left Heel Gram Stain - Final 12/15/20 16:25 Wound - Left Heel Gram Stain - Final Medications List Reviewed: Yes Assessment & Plan Discharge Plan: Home Plan to discharge in: 48 Hours Physician Review Additional Text: Physical Exam: GENERAL: Vital signs stable. Patient alert VITAL SIGNS: Reviewed Heart: Regular rate Lungs: Clear to auscultation Extremities: Left foot bandaged. Impression: Left diabetic foot ulcer with cellulitis status post excisional debridement of left heel necrotic infected diabetic ulcer, 8 x 6 cm Diabetes mellitus type 2 insulin-dependent with hyperglycemia Hypertension Chronic renal disease stage III Hyperlipidemia Glaucoma Anemia of chronic disease Plan: Left diabetic foot ulcer with cellulitis status post excisional debridement of left heel necrotic infected diabetic ulcer, 8 x 6 cm: Continue with IV antibiotic therapy. Currently on cefepime and vancomycin. Patient had debridement yesterday by surgery. Continue antibiotics and monitor closely. We will teach on wound care. Case discussed with infectious disease. Anticipate discharge likely as early as tomorrow if stable. Diabetes mellitus type 2 with hyperglycemia: A1c 10. Will increase Lantus for better control. Januvia restarted. Metformin discontinued due to chronic renal disease. Will monitor and adjust appropriately. Hypertension: Blood pressure still elevated. Increase metoprolol. Continue him lisinopril. Chronic renal disease stage III: Stable. Will recommend nephrology consultation to further address and monitor. That way this can be followed closely as an outpatient. Hyperlipidemia: Continue home medication Glaucoma: Continue home medication Anemia of chronic disease: We will monitor this closely. Code Status: Full Code DVT prophylaxis: Lovenox Advanced Care Planning-30 minutes: Plan of care for the patient's discharge was discussed in detail with the patient. Plan is for the patient to return home at discharge. Time Spent Managing Pts Care (In Minutes): 55
[2020-12-18] MEDS: HYDRALAZINE HCL 20 MG/ML VIAL IV PRN (17:11)
[2020-12-18] MEDS: VANCOMYCIN 2 GM in NA CHLORIDE 0.9% 500 ML IVPB SCH (17:12)
--- NOTE | 2020-12-18 17:15 | RAD REPORT ---
EXAM DESCRIPTION: US - Renal Ultrasound-Complete - 12/18/2020 4:50 pm CLINICAL HISTORY: LARISA Flank pain COMPARISON: No comparisons FINDINGS: Both kidneys are normal in size, shape and echotexture. The right kidney measures 11.8 x 6.4 x 6.0 cm. No hydronephrosis, focal mass or perinephric fluid. The left kidney measures 11.6 x 7.6 x 6.5 cm. No hydronephrosis, focal mass or perinephric fluid. The urinary bladder is incompletely distended without gross abnormality seen. IMPRESSION: Unremarkable renal sonogram.
--- NOTE | 2020-12-18 18:29 | CON ---
Date of Consultation: 12/18/2020 Reason For Consultation: Elevated BUN and creatinine. History Of Present Illness: This is a pleasant 55-year-old female with significant past medical history of diabetes since age 19-year-old complicated with neuropathy, according to her no retinopathy, hypertension, hyperlipidemia, the patient came to the hospital because of ulcer in her foot, not improving. According to the patient, the patient has regular blood work with her burnisher and bumper and showing some abnormality in the kidney function, but never has any referral for evaluation. The patient denied taking any nonsteroidal. The patient's home medications include metformin and lisinopril. No recent exposure to any contrast. Reviewing the record for the patient, the patient's creatinine back in November 2017. At that time, her creatinine was 1.1 with GFR of 49. Upon admission, GFR of 32 and creatinine 1.6, currently creatinine down to 1.4 with GFR of 39. Past Medical History: Includes; 1. Diabetes complicated with neuropathy. 2. Hypertension. 3. Hyperlipidemia. 4. Chronic kidney disease, unknown baseline. Allergies: TO LATEX. Home Medications: Include glipizide, aspirin, atorvastatin, primidone, folic acid, lisinopril, metformin, ciprofloxacin, metoprolol. Past Surgical History: Debridement, , eye surgery. Family History: Positive for diabetes and hypertension and cancer. Social History: Denied smoking. Denied drinking. Denied drugs abuse. Review of Systems: Head and Neck: No red eye. No ear pain. GI: No nausea. No vomiting. : No polyuria. No dysuria. No hematuria. 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 Respiratory: No shortness of breath. Cardiovascular: Has leg swelling. Endocrine: No polydipsia. Skin: No rash. Neuro: Has neuropathy. Musculoskeletal: Has foot pain. Physical Examination: Vital Signs: Blood pressure 180/90, pulse of 95, afebrile. Chest: Clear to auscultation. Heart: S1, S2. No murmur. Extremities: +1 edema. Ulcer on the left heel with drainage, status post debridement. Neuro: Alert and oriented x3. No focal. Laboratory Data: Sodium 139, potassium 3.7, bicarb 29, BUN 12, creatinine 1.4, GFR 39, calcium 7.8. Urinalysis, +3 protein. H and H 8.6/26.9. Upon arrival to the hospital; creatinine 1.6, GFR of 31. Previously back in November 2017; creatinine 1.1, GFR of 49. Current Medications: In the hospital include vancomycin, multivitamin, lisinopril, atorvastatin, hydrocodone. Assessment And Plan: 1. 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 With the presence of the anemia and proteinuria, light chain disease ruled out, we will send for the workup. We will send for renal ultrasound and we will follow up. Given the improvement in the kidney function, even though that the patient on BETO inhibitor, I am going to continue with BETO inhibitor. 2. Nephrotic range of proteinuria. We will quantify the protein and creatinine. We will send for the serology with the presence of acute kidney injury. We will rule out light chain disease. 3. Anemia of chronic kidney disease. We will send for the workup. 4. Hypertension, not controlled. I agree with continuing lisinopril. I am going to go ahead and increase metoprolol to 50 mg b.i.d. and we will monitor the patient. 5. Osteomyelitis. Continue vancomycin. 6. Diabetes as by primary. Thank you Dr. Randhawa for allowing us to participate in the care of your patient. time spend discussing the case with the patient , exam the patient face to face , placing order, discussing the case with the staff and hospitalist 65 min SARAH Voice ID: [id number] Report ID: [id number]
[2020-12-18] MEDS: HEPARIN 5000 UNIT/ML 1 ML VIAL SQ SCH (20:57)
[2020-12-18] MEDS: ATORVASTATIN 10 MG TAB PO SCH (20:57)
[2020-12-18] MEDS: METOPROLOL TAR 50 MG TAB PO SCH (20:57)
[2020-12-18] MEDS ORDERED: INSULIN GLARGINE 100 UNITS/ML SQ SCH ×2 (21:00)
[2020-12-19 00:47] VITALS: O2SAT 100
[2020-12-19 05:40] LABS: Absolute Lymphocytes (CBC) 1.4 K/uL (0.7-4.9); Basophils % 0.7 % (0-1.3); Hematocrit 25.7 % (36.0-45.0); Lymphocytes % 14.3 % (15.3-44.8); MPV 7.9 fL (7.6-11.3); RBC Red Blood Cell Count 3.25 M/uL (3.86-4.86)
--- NOTE | 2020-12-19 05:45 | P.PN ---
Subjective Date of Service: 12/19/20 Primary Care Provider: Dr. Mathew([facility]) Chief Complaint: Left foot diabetic ulcer and Left leg cellulitis Subjective: No new changes Physical Examination - Vital Signs Temperature: 98.4 F Blood Pressure: 144/54 Pulse: 91 Respirations: 12 Pulse Ox (%): 92 - Physical Exam General: In no apparent distress HEENT: Atraumatic, Normocephalic Neck: Supple Respiratory: Other (Symmetric chest expansion) Cardiovascular: No rubs, No murmurs Gastrointestinal: Soft and benign Musculoskeletal: No clubbing Integumentary: Other (+wound dressing on L heel) Neurological: Other (Non-focal) - Studies Microbiology Data (last 24 hrs): 12/17/20 14:35 Wound - Left Heel Gram Stain - Final 12/15/20 16:25 Wound - Left Heel Gram Stain - Final Medications List Reviewed: Yes Assessment And Plan - Plan # LARISA on CKD vs progressive CKD likely 2/2 DM nephropathy Baseline SCr 1.0-1.2 as of November 2017 SCr currenty at 1.5 +Hematuria +nephrotic range proteinuria w/ random UPCR 9.5g F/u proteinuria workup Continue ACEI lisinopril # L heel wound Mngt per other services On abx & wound care Needs L posterior offloading shoe # Htn BP ok Cont lisinopril & metoprolol # Anemia F/u workup # DM Mngt per primary team
[2020-12-19 06:00] LABS: Magnesium 2.1 mg/dL (1.8-2.4)
[2020-12-19] MEDS: INSULIN -REGULAR HUMAN 50 UNIT/0.5 ML ML SQ SCH ×2 (07:30→12:44)
[2020-12-19] MEDS: lisinopriL 20 MG TAB PO SCH (08:29)
[2020-12-19] MEDS: ASPIRIN EC 81 MG TAB PO SCH (08:29)
[2020-12-19] MEDS: HEPARIN 5000 UNIT/ML 1 ML VIAL SQ SCH (08:29)
[2020-12-19] MEDS: MULTIVIT W/ MINERAL TAB PO SCH (08:29)
[2020-12-19] MEDS: Cinnamon Bark 500 MG Capsule PO SCH (08:30)
[2020-12-19] MEDS: METOPROLOL TAR 50 MG TAB PO SCH (08:30)
[2020-12-19] MEDS: BRIMONIDINE TARTRATE OPTH SCH (08:30)
[2020-12-19] MEDS: TIMOLOL OPTH SCH (08:30)
[2020-12-19] MEDS: BIMATOPROST OPHTH DROPS/2.5 ML BTL OPTH SCH (08:30)
[2020-12-19] MEDS: GLIPIZIDE S.A. 5 MG TAB PO SCH (08:30)
[2020-12-19] MEDS: CEFEPIME/SWI 1gm 10 ML IVP SCH (08:35)
[2020-12-19] MEDS ORDERED: POTASSIUM CL SA 10 MEQ TAB PO ONE (09:00)
--- NOTE | 2020-12-19 09:44 | P.DS ---
Admission Date: 12/15/20 Discharge Date: 12/19/20 Primary Care Provider: Dr. Mathew([facility]) Disposition: [place] HOME/HOME HEALTH CARE Discharge Condition: GOOD Reason for Admission: Left foot diabetic ulcer and Left leg cellulitis Consultations: ID-Dr. Fuller Surgery-Dr. Richardson Nephrology-Dr. Hauser Procedures: COVID: Negative Renal US: COMPARISON: No comparisons FINDINGS: Both kidneys are normal in size, shape and echotexture. The right kidney measures 11.8 x 6.4 x 6.0 cm. No hydronephrosis, focal mass or perinephric fluid. The left kidney measures 11.6 x 7.6 x 6.5 cm. No hydronephrosis, focal mass or perinephric fluid. The urinary bladder is incompletely distended without gross abnormality seen. IMPRESSION: Unremarkable renal sonogram. Surgery: Date of Procedure: 12/17/2020 Surgeon: Dyllan Richardson MD Preoperative Diagnosis: Left heel necrotic diabetic ulcer. Postoperative Diagnosis: Left heel necrotic diabetic ulcer. Procedure: Excisional debridement of left heel necrotic infected diabetic ulcer, 8 x 6 cm. Estimated Blood Loss: Less than 10 mL. Specimen: Culture of necrotic tissue. Findings: Necrotic tissue. Anesthesia: General plus local. Medical Problem List: Left diabetic foot necrotic ulcer with cellulitis status post excisional debridement of left heel necrotic infected diabetic ulcer, 8 x 6 cm Diabetes mellitus type 2 insulin-dependent with hyperglycemia Hypertension Chronic renal disease stage III Hyperlipidemia Glaucoma Anemia of chronic disease Brief History of Present Illness: 55-year-old female presenting with left diabetic foot necrotic ulcer and cellulitis. Patient was a direct admit by infectious disease. Hospitalist was consulted to address medical management. Patient admitted for further treatment. Patient failed outpatient therapy. Hospital Course: Patient presented with left diabetic foot necrotic ulcer with cellulitis. Patient was a direct admit by infectious disease who sees the patient. She had failed outpatient therapy. Patient was also seen by surgery. Surgical invention was required. Patient had excisional debridement of the left heel measuring 8 x 6 cm. Patient tolerated procedure well. Patient did well to the course of her stay with IV antibiotic therapycefepime and vancomycin. At discharge white count remains normal. Patient continues with wound care as recommended by infectious disease and surgery. Patient taught on wound care. At discharge home health will be arranged to continue wound care and education. At discharge the patient will continue with clindamycin 300 mg 3 times a day for 10 days. Patient will continue with lactobacillus 3 times a day as well. Patient will follow up with infectious disease in 1 week to follow-up his hospitalization and continue her care. Prior to discharge wound care will be taught and continued at home. Patient with diabetes mellitus type 2 with hyperglycemia. Hemoglobin A1c 10.0. Medications have been adjusted due to her chronic renal disease. Patient previously on insulin therapy. Insulin therapy was initiated due to abnormal hemoglobin A1c. At discharge the patient will continue with Tresiba 15 units subcu every night, glipizide 10 mg 1 pill twice daily, and Januvia 100 mg daily. Metformin and Repaglinide have been discontinued. Recommend to monitor blood sugars at least twice daily. Recommend to maintain blood sugar less than 140 fasting and less than 200 after meals. Patient may need to have her Tresiba adjusted if blood sugars remain above 200. This can be done with the help of her PCP. Recommend follow-up with PCP in 1 week to further address and monitor her condition. Patient may benefit with endocrinology evaluation as an outpatient to further address and control her diabetes. Recommend to recheck hemoglobin A1c in 3 months to monitor her progress. Patient with hypertension. Medication was adjusted due to elevated blood pressure. At discharge patient will continue with lisinopril 20 mg daily. Toprol has been increased to 50 mg 1 pill twice daily. Recommend to maintain blood pressure less than 130/80. Further adjustment can be done by her PCP. Patient with hyperlipidemia. At discharge patient will continue with Lipitor as directed. Recommend to recheck fasting lipid panel in 4 to 6 weeks to monitor her progress. Further adjustment can be done by her PCP. Patient with glaucoma. Patient will continue with her current medication. Patient with chronic renal disease stage III. Nephrology was consulted to establish care. Renal ultrasound unremarkable. Recommend 1500 cc/day fluid restriction and low-salt diet. Future medications will need to be renally dosed. Recommend follow-up with nephrology as an outpatient to further monitor and address her condition. Prior to discharge home health will be arranged to continue wound care and educate on diabetes, hypertension, hyperlipidemia and chronic renal disease. Fall precautions in place. Vital Signs/Physical Exam: Temp Pulse Resp BP Pulse Ox 97.8 F 86 16 186/67 H 85 L 12/19/20 08:00 12/19/20 08:30 12/19/20 08:00 12/19/20 08:30 12/19/20 08:00 General: Alert, In no apparent distress, Oriented x3, Cooperative HEENT: Atraumatic Neck: Supple Respiratory: Clear to auscultation bilaterally, Normal air movement Cardiovascular: Normal pulses, Regular rate/rhythm Gastrointestinal: Normal bowel sounds, No tenderness, No masses, No rebound, No guarding Integumentary: Other (Bandage to the left foot in place bandage to the left foot in place.) Neurological: Normal speech, Normal strength at 5/5 x4 extr, Normal tone, Normal affect Laboratory Data at Discharge: WBC 9.50 K/uL (4.3-10.9) 12/19/20 05:18 Hgb 8.3 g/dL (12.0-15.0) L 12/19/20 05:18 Hct 25.7 % (36.0-45.0) L 12/19/20 05:18 Plt Count 451 K/uL (152-406) H 12/19/20 05:18 Sodium 141 mmol/L (136-145) 12/19/20 05:18 Potassium 4.0 mmol/L (3.5-5.1) 12/19/20 05:18 BUN 12 mg/dL (7-18) 12/19/20 05:18 Creatinine 1.46 mg/dL (0.55-1.3) H 12/19/20 05:18 Glucose 181 mg/dL (74-106) H 12/19/20 05:18 Magnesium 2.1 mg/dL (1.8-2.4) 12/19/20 05:18 Total Bilirubin 0.4 mg/dL (0.2-1.0) 12/15/20 17:06 AST 12 U/L (15-37) L 12/15/20 17:06 ALT 14 U/L (12-78) 12/15/20 17:06 Alkaline Phosphatase 73 U/L (45-117) 12/15/20 17:06 Triglycerides 138 mg/dL (<150) 12/16/20 05:33 Cholesterol 97 mg/dL (<200) 12/16/20 05:33 HDL Cholesterol 24 mg/dL (40-60) L 12/16/20 05:33 Cholesterol/HDL Ratio 4.04 12/16/20 05:33 Home Medications: Glipizide [Glucotrol Xl] 10 mg PO BID 01/24/13 Aspirin [Aspirin EC 81 MG] 81 mg PO DAILY 07/13/17 Atorvastatin Calcium [Lipitor*] 10 mg PO BEDTIME 07/13/17 Bimatoprost [Lumigan Opthalmic Drops*] 2.5 ml EACH EYE DAILY 07/13/17 Brimonidine Tartrate/Timolol [Combigan 0.2%-0.5% Eye Drops] 2.5 ml EACH EYE BID 07/13/17 Cinnamon Bark [Cinnamon] 500 mg PO TID 07/13/17 Folic Acid/Multivit,Iron,Hitchcock [One Daily Complete Tablet] 1 each PO DAILY 07/13/17 lisinopriL [Lisinopril] 20 mg PO DAILY 07/13/17 Sitagliptin Phosphate [Januvia] 100 mg PO NOON 12/17/20 Collagenase [Santyl Ointment*] 1 appl TOP DAILY #1 tube 12/19/20 Insulin Degludec [Tresiba Flextouch U-100] 15 unit SQ BEDTIME #1 packet 12/19/20 Lactobacillus Acidophilus [Acidophilus Lactobacilli] 1 each PO TID #90 capsule 12/19/20 Metoprolol Tartrate [Lopressor*] 50 mg PO BID #60 tab 12/19/20 clindamycin HCL [Cleocin HCl] 300 mg PO TID #30 capsule 12/19/20 New Medications: Lactobacillus Acidophilus [Acidophilus Lactobacilli] 1 each PO TID #90 capsule clindamycin HCL [Cleocin HCl] 300 mg PO TID #30 capsule Metoprolol Tartrate [Lopressor*] 50 mg PO BID #60 tab Collagenase [Santyl Ointment*] 1 appl TOP DAILY #1 tube Insulin Degludec [Tresiba Flextouch U-100] 15 unit SQ BEDTIME #1 packet Physician Discharge Instructions: Patient presented with left diabetic foot necrotic ulcer with cellulitis. Patient was a direct admit by infectious disease who sees the patient. She had failed outpatient therapy. Patient was also seen by surgery. Surgical invention was required. Patient had excisional debridement of the left heel measuring 8 x 6 cm. Patient tolerated procedure well. Patient did well to the course of her stay with IV antibiotic therapycefepime and vancomycin. At discharge white count remains normal. Patient continues with wound care as recommended by infectious disease and surgery. Patient taught on wound care. At discharge home health will be arranged to continue wound care and education. At discharge the patient will continue with clindamycin 300 mg 3 times a day for 10 days. Patient will continue with lactobacillus 3 times a day as well. Patient will follow up with infectious disease in 1 week to follow-up his hospitalization and continue her care. Prior to discharge wound care will be taught and continued at home. Patient with diabetes mellitus type 2 with hyperglycemia. Hemoglobin A1c 10.0. Medications have been adjusted due to her chronic renal disease. Patient previously on insulin therapy. Insulin therapy was initiated due to abnormal hemoglobin A1c. At discharge the patient will continue with Tresiba 15 units subcu every night, glipizide 10 mg 1 pill twice daily, and Januvia 100 mg daily. Metformin and Repaglinide have been discontinued. Recommend to monitor blood sugars at least twice daily. Recommend to maintain blood sugar less than 140 fasting and less than 200 after meals. Patient may need to have her Tresiba adjusted if blood sugars remain above 200. This can be done with the help of her PCP. Recommend follow-up with PCP in 1 week to further address and monitor her condition. Patient may benefit with endocrinology evaluation as an out patient to further address and control her diabetes. Recommend to recheck hemoglobin A1c in 3 months to monitor her progress. Patient with hypertension. Medication was adjusted due to elevated blood pressure. At discharge patient will continue with lisinopril 20 mg daily. Toprol has been increased to 50 mg 1 pill twice daily. Recommend to maintain blood pressure less than 130/80. Further adjustment can be done by her PCP. Patient with hyperlipidemia. At discharge patient will continue with Lipitor as directed. Recommend to recheck fasting lipid panel in 4 to 6 weeks to monitor her progress. Further adjustment can be done by her PCP. Patient with glaucoma. Patient will continue with her current medication. Patient with chronic renal disease stage III. Nephrology was consulted to establish care. Renal ultrasound unremarkable. Recommend 1500 cc/day fluid restriction and low-salt diet. Future medications will need to be renally dosed. Recommend follow-up with nephrology as an outpatient to further monitor and address her condition. Prior to discharge home health will be arranged to continue wound care and educate on diabetes, hypertension, hyperlipidemia and chronic renal disease. Fall precautions in place. Diet: ADA Activity: Fall precautions Time spent managing pt's care (in minutes): 55
--- NOTE | 2020-12-19 10:45 | P.PN ---
Subjective Date of Service: 12/19/20 Primary Care Provider: Dr. Mathew([facility]) Chief Complaint: Left foot diabetic ulcer and Left leg cellulitis Patient seen examined at bedside, doing well no acute complaints. Continue Santyl to the wound site. Patient is hemodynamically stable, no leukocytosis. Review of Systems 10-point ROS is otherwise unremarkable Physical Examination - Vital Signs Temperature: 97.8 F Blood Pressure: 186/67 Pulse: 86 Respirations: 16 Pulse Ox (%): 85 - Studies Laboratory Data (last 24 hrs) 12/19/20 05:18: Sodium 141, Potassium 4.0, BUN 12, Creatinine 1.46 H, Glucose 181 H, Magnesium 2.1 12/19/20 05:18: WBC 9.50, Hgb 8.3 L, Hct 25.7 L, Plt Count 451 H Microbiology Data (last 24 hrs): 12/17/20 14:35 Wound - Left Heel Gram Stain - Final 12/15/20 16:25 Wound - Left Heel Gram Stain - Final 12/15/20 16:25 Wound - Left Heel Culture & Sensitivity - Final Proteus Mirabilis Medications List Reviewed: Yes Assessment And Plan - Plan General: Alert, In no apparent distress, Obese HEENT: Atraumatic, Normocephalic Neck: Supple, 2+ carotid pulse no bruit Respiratory: Clear to auscultation bilaterally, Normal air movement Cardiovascular: No edema, Normal pulses Capillary refill: <2 Seconds Gastrointestinal: Normal bowel sounds, Soft and benign Musculoskeletal: No clubbing, No swelling Integumentary: Other (End right 5th total diabetic wound, on left lower extremity cellulitis with erythema and swelling, left heel diabetic foot wound) Laboratory Data (last 24 hrs) Antibiotics: Vancomycin Start: 12/15 stop: 12/19 Cefepime Start: 12/15 Stop:12/19 Assessment: 1. Left heel diabetic ulcer 2. [id number] toe ulcer-healing 3. Anemia 4. Morbid obesity 5. Diabetes mellitus type 2 uncontrolled 6. Hypertension uncontrolled Plan: 1. Left heel wound cultures pending. Surgical debridement performed on 11/17. Wound care: santyl daily, kerlix, frances wrap. Continue to elevate the leg. Continue broad-spectrum antibiotic coverage with vancomycin and cefepime. Continue antibiotic for 2 weeks. Can DC on oral clindamycin. Important patient takes probiotic for duration of antibiotic course. 2. Healing, cover with foam and protect. 3. Continue to monitor the H&H, iron panel pending -hemoglobin A1c of 10.0, continue to monitor glucose levels. -medical management per primary team -continue to monitor CBC and BMP -continue to monitor for signs of infection Plan of care discussed with Dr. Fuller. Thank you for consultation
[2020-12-19] MEDS: SITAGLIPTIN PHOS 100 MG TAB PO SCH (12:44)
[2020-12-19] MEDS: COLLAGENASE 30 GM OINTMENT TOP SCH (12:49)
[2020-12-19] MEDS: HYDRALAZINE HCL 20 MG/ML VIAL IV PRN (12:49)
[2020-12-19 14:21] LABS: Urine Protein/Creatinine Ratio 9.49 ratio (<0.15)
[2020-12-19 14:43] LABS: RBC Red Blood Cell Count 3.54 M/uL (3.86-4.86)
[2020-12-19 15:20] LABS: Albumin 1.9 g/dL (3.4-5.0); Ferritin 101.2 ng/mL (8-388); Phosphorus 2.6 mg/dL (2.5-4.9); Potassium 4.2 mmol/L (3.5-5.1); Thyroid Stimulating Hormone 0.542 uIU/mL (0.360-3.740)
[2020-12-19 16:09] LABS: Rheumatoid Factor POS (NEG)
[2020-12-19 21:19] VITALS: BP 144/54; TEMP 98.4
[2020-12-23 11:23] LABS: Hepatitis C Virus RNA (PCR)log <1.18 log IU/mL
[2020-12-23 13:58] LABS: HIV AG/AB 4TH GEN Non-reactive (Non-reactive)
[2020-12-24 18:43] LABS: HBsAG Nonreactive (Nonreactive)
[2020-12-25 05:45] LABS: Albumin, (SPE) 2.1 g/dL (3.8-4.8); Alpha-1-Globulins 0.4 g/dL (0.2-0.3); Alpha-2-Globulins 1.1 g/dL (0.5-0.9); Gamma Globulins 1.5 g/dL (0.8-1.7); INTERPRETATION REPORT
[2020-12-26 18:35] LABS: Vitamin D 1,25-Dihydroxy Total 18 pg/mL (18-72); Vitamin D,1,25-OH2, D2 <8 pg/mL
== END 2020-12-19 15:15 | disposition home health service (06) | DRG 264 ==
LOC: 4TH 12:58 → 2ND 17:37
PROVIDERS: ADMIT Internal Medicine Infectious Disease; ATTEND Internal Medicine Infectious Disease
PROC: 0JBR0ZZ Excision of Left Foot Subcutaneous Tissue and Fascia, Open Approach (ICD-10-PCS; principal; 2020-12-17 14:15)
DX: E11.52 Type 2 diabetes mellitus with diabetic peripheral angiopathy with gangrene (principal); I96 Gangrene, not elsewhere classified; L03.116 Cellulitis of left lower limb; L97.429 Non-pressure chronic ulcer of left heel and midfoot with unspecified severity; Z68.42 Body mass index [BMI] 45.0-49.9, adult; M86.9 Osteomyelitis, unspecified; N17.9 Acute kidney failure, unspecified; E11.621 Type 2 diabetes mellitus with foot ulcer; L97.519 Non-pressure chronic ulcer of other part of right foot with unspecified severity; E11.39 Type 2 diabetes mellitus with other diabetic ophthalmic complication; H42 Glaucoma in diseases classified elsewhere; E78.5 Hyperlipidemia, unspecified; E11.65 Type 2 diabetes mellitus with hyperglycemia; I12.9 Hypertensive chronic kidney disease with stage 1 through stage 4 chronic kidney disease, or unspecified chronic kidney disease; N18.30 Chronic kidney disease, stage 3 unspecified; E11.22 Type 2 diabetes mellitus with diabetic chronic kidney disease; D63.8 Anemia in other chronic diseases classified elsewhere; E66.01 Morbid (severe) obesity due to excess calories; Z91.040 Latex allergy status; Z79.84 Long term (current) use of oral hypoglycemic drugs; Z79.899 Other long term (current) drug therapy; Z79.82 Long term (current) use of aspirin; Z20.822 Contact with and (suspected) exposure to COVID-19; D63.1 Anemia in chronic kidney disease; E11.69 Type 2 diabetes mellitus with other specified complication; R31.9 Hematuria, unspecified
CPT/HCPCS: 36415; 76770; 80048; 80053; 80061; 80069; 80202; 81003; 81015; 82570; 82607; 82652; 82728; 82947; 83036; 83520; 83540; 83735; 83970; 84156; 84165; 84443; 84466; 85025; 85044; 85302; 86021; 86038; 86160; 86225; 86317; 86430; 86704; 86706; 87070; 87077; 87186; 87205; 87340; 87389; 87522; 88304; J0360; J0692; J1100; J1644; J1815; J2250; J2405; J2704; J3010; J3370; J3475; J3590; J7030; J7040; U0003

== ENCOUNTER 2021-01-15 13:50 | Inpatient (IN) | payer OTHER ==
--- OUTSIDE RECORDS SUMMARY | 2021-01-15 13:53 | XMS REPORT | Continuity of Care Document ---
:1965 Author Organization [facility] t Address [address] [place] [address] Care Team Providers Name Role Phone Hemalatha Mathew MD Attending Clinician Shahid MADERA Attending Clinician Problems Condition Condition Condition Status Onset Resolution Last Treating Co mments Source Name Details Category Date Date Treatment Clinician Date Pain in Pain in Diagnosis Active [facility] Closed Closed Diagnosis Active [facility] St Reaction Available [facility] Medications Ordered Filled Start Stop Current Ordering Indication Dosage Frequency Signature Comments Components Source Medication Medication Date Date Medication? Clinician (SIG) Name Name GlipiZIDE GlipiZIDE Yes Bak[facility] not [facility] defined [facility] MetFORMIN MetFORMIN Yes Bakari not [facility] HCl ER HCl ER Torres defined [facility] Aspirin Aspirin Yes Bakari [address] [facility] Atorvastati Atorvastati Yes Bakari not [facility] Calcium n Calcium Torres defined [facility] Januvia Januvia Yes Bakari not [facility] defined [facility] Lisinopril Lisinopril Yes Bakari not [facility] Torrse defined [facility] Procedures This patient has no known procedures. Encounters Start End Encounter Admission Attending Care Care Encounter Source Date/Time Date/Time Type Type Clinicians Facility Department ID 2021-01-07 2021-01-[address] [facility] [id number] 00:00:00 00:00:00 Savana Fraser [id number] [place] [id number] Professio [phone] [address] 2021-01-06 2021-01-[address] [facility] [id number] 00:00:00 00:00:00 Savana Fraser [id number] [place] [id number] Professio [phone] [address] 2020-12-25 2020-12-[address] [facility] [id number] 00:00:00 00:00:00 Savana Fraser [id number] [place] [id number] Professio [phone] [address] 2020-11-26 2020-11-26 [facility] [id number] 13:45:19 15:47:52 Visit Raymundo Fraser [id number] [place] [id number] Professio [phone] [address] 2018-03-06 2018-03-06 [facility] [id number] 10:30:00 10:30:00 [facility] Results This patient has no known results.
[2021-01-15] MEDS ORDERED: NA CHLORIDE 0.9% 500 ML IV ONE (15:12)
--- NOTE | 2021-01-15 15:47 | ER ---
Nurse's Notes [facility] Name: Dang Sequeira Age: 55 yrs Sex: Female : 1965 Arrival Date: 01/15/2021 Time: 14:03 Bed Direct Admit Private MD: Diagnosis: Osteomyelitis Presentation: 01/15 14:09 Chief complaint: Patient states: Dr. Fuller told me to come here for my wound on my tw2 LEFT foot. I was running fever when i went to [facility] but they gave me tylenol. Coronavirus screen: At this time, the client does not indicate any symptoms associated with coronavirus-19. Ebola Screen: Patient denies travel to an Ebola-affected area in the 21 days before illness onset. Initial Sepsis Screen: Does the patient meet any 2 criteria? HR > 90 bpm. Does the patient have a suspected source of infection? Yes: Skin breakdown/wound. Risk Assessment: Do you want to hurt yourself or someone else? Patient reports no desire to harm self or others. Onset of symptoms was January 15, 2021. 14:09 Method Of Arrival: Wheelchair tw2 14:09 Acuity: MARTIN 3 tw2 Triage Assessment: 14:13 General: Appears in no apparent distress. ill, obese, Behavior is calm, cooperative, tw2 appropriate for age. Pain: Denies pain. Historical: - Allergies: 14:13 Latex, Natural Rubber; tw2 - Home Meds: 14:13 lisinopril Oral [Active]; Januvia 100 mg oral tab 1 tab once daily [Active]; metformin tw2 500 mg Oral tab 2 tabs 2 times per day [Active]; metoprolol tartrate 25 mg Oral tab 1 tab once daily [Active]; atorvastatin Oral [Active]; aspirin 325 mg Oral tab once daily [Active]; Glipizide Oral [Active]; Tresiba FlexTouch U-100 100 unit/mL (3 mL) subcutaneous inpn 10 units daily [Active]; - PMHx: 14:13 High Cholesterol; Hypertension; neuropathy; Diabetes - IDDM; tw2 - Immunization history:: Adult Immunizations. - Social history:: Smoking status: . Vital Signs: 14:09 BP 115 / 51; Pulse 95; Resp 17; Temp 98.5(TE); Pulse Ox 98% on R/A; Weight 126.55 kg; tw2 Pain 0/10; ED Course: 14:03 Patient arrived in ED. ds1 14:11 Triage completed. tw2 14:14 Raoul Munoz PA is PHCP. cp 14:14 Enrique Hassan MD is Attending Physician. cp 14:14 Arm band placed on. tw2 14:20 COVID swab sent to lab. [facility] 14:21 Patient has correct armband on for positive identification. Bed in low position. Call 5 light in reach. Side rails up X2. Pulse ox on. NIBP on. 15:45 Adalid Randhawa DO is Hospitalizing Provider. iw Administered Medications: No medications were administered Outcome: 15:46 Decision to Hospitalize by Provider. iw 17:24 Patient left the ED. iw Signatures: Anita Mariscal ds1 Tiffanie Mon, RN RN iw Raoul Munoz PA PA cp Wise, Tara RN RN tw2 Marisela Richardson [facility] Corrections: (The following items were deleted from the chart) 14:46 14:22 CORONAVIRUS+MR.LAB.CELSOZ drawn and sent. [facility] EDMS
--- NOTE | 2021-01-15 16:54 | RAD REPORT ---
EXAM DESCRIPTION: Evelyn Single View01/15/2021 4:48 pm CLINICAL HISTORY: Fever COMPARISON: 2017 FINDINGS: The lungs appear clear of acute infiltrate. The heart is borderline enlarged IMPRESSION: No acute abnormalities displayed
--- NOTE | 2021-01-15 17:14 | P.HP ---
Certification for Inpatient Patient admitted to: Inpatient With expected LOS: >2 Midnights Patient will require the following post-hospital care: Other (Long-term acute care facility) Practitioner: I am a practitioner with admitting privileges, knowledge of patient current condition, hospital course, and medical plan of care. Services: Services provided to patient in accordance with Admission requirements found in Title 42 Section 412.3 of the Code of Federal Regulations Patient History Date of Service: 01/15/21 Primary Care Provider: Dr. Mathew Reason for admission: Left lower extremity edema, erythema with open wound History of Present Illness: 55-year-old female with history of diabetes, hypertension. Patient was seen at wound care clinic by infectious disease. Patient has chronic open wound to the left calcaneus. Bone is exposed. Patient appears to have Charcot arthropathy. Patient had debridement by surgery on December 15. Since that time area has gotten worse. The left open wound has some exudate. Foul smell is noted. Patient with erythema, swelling to the lower extremity. Cellulitis with osteomyelitis is suspected. Infectious disease recommended inpatient admission for further evaluation and treatment. Patient has noted poor oral intake. Patient also reported a fever today. The patient was seen in the ER for direct admission. Lab to be obtained. IV antibiotic therapy to be initiated. Patient to receive IV fluids. Allergies latex Allergy (Mild, Verified 11/25/17 00:37) Itching Home medications list reviewed: Yes Home Medications: Glipizide [Glucotrol Xl] 10 mg PO BID 01/24/13 Aspirin [Aspirin EC 81 MG] 81 mg PO DAILY 07/13/17 Atorvastatin Calcium [Lipitor*] 10 mg PO BEDTIME 07/13/17 Bimatoprost [Lumigan Opthalmic Drops*] 2.5 ml EACH EYE DAILY 07/13/17 Brimonidine Tartrate/Timolol [Combigan 0.2%-0.5% Eye Drops] 2.5 ml EACH EYE BID 07/13/17 Cinnamon Bark [Cinnamon] 500 mg PO TID 07/13/17 Folic Acid/Multivit,Iron,Rnp [One Daily Complete Tablet] 1 each PO DAILY 07/13/17 lisinopriL [Lisinopril] 20 mg PO DAILY 07/13/17 Sitagliptin Phosphate [Januvia] 100 mg PO NOON 12/17/20 Collagenase [Santyl Ointment*] 1 appl TOP DAILY #1 tube 12/19/20 Insulin Degludec [Tresiba Flextouch U-100] 15 unit SQ BEDTIME #1 packet 12/19/20 Lactobacillus Acidophilus [Acidophilus Lactobacilli] 1 each PO TID #90 capsule 12/19/20 Metoprolol Tartrate [Lopressor*] 50 mg PO BID #60 tab 12/19/20 clindamycin HCL [Cleocin HCl] 300 mg PO TID #30 capsule 12/19/20 - Past Medical/Surgical History Diabetic: Yes -: Diabetes mellitus type 2 -: Hypertension -: Hyperlipidemia -: History of osteomyelitis -: Diabetic neuropathy -: x1 -: eye surgery 1 yr and 5yrs ago -: debridement of left heel 12/2020 Psychosocial/ Personal History: Patient lives at home with son - Family History Father -: Diabetes, Cancer Notes: bone cancer Mother -: Cancer Notes: cervical - Social History Smoking Status: Never smoker Alcohol use: No CD- Drugs: No Caffeine use: Yes Place of Residence: Home Review of Systems General: Fever, Weakness, As per HPI Eyes: Unremarkable ENT: Unremarkable Respiratory: Unremarkable Cardiovascular: Unremarkable Gastrointestinal: Unremarkable Genitourinary: Unremarkable Musculoskeletal: As per HPI Integumentary: As per HPI Neurological: Unremarkable Lymphatics: Unremarkable Assessment and Plan - Plan Physical Exam: GENERAL: The patient is a well-developed, well-nourished, in no apparent distress. Alert and oriented x3. Vital signs appear stable. VITAL SIGNS: Reviewed HEENT: Head is normocephalic and atraumatic. Extraocular muscles are intact. Pupils are equal, round, and reactive to light and accommodation. Nares appeared normal. Mouth is well hydrated and without lesions. Mucous membranes are moist. NECK: Supple. No carotid bruits. No lymphadenopathy or thyromegaly. LUNGS: Clear to auscultation. No crackles or wheezes are heard. HEART: Regular rate and rhythm, no appreciable gallops, rubs, murmurs or extra heart sounds ABDOMEN: Soft, nontender, and nondistended. Positive bowel sounds. No hepatosplenomegaly was noted. EXTREMITIES: Left lower extremity erythema, swelling noted. Open wound to the left calcaneus region. Bone exposed. Foul smell noted. Some mild exudate noted as well. NEUROLOGIC: The patient is oriented to person, place and time. Strength and sensation are grossly intact. Face is symmetric. SKIN: Normal color, turgor and temperature. No ulcerations or rashes noted. Impression: Left lower extremity cellulitis with acute on chronic open wound to the calcaneus region suspected osteomyelitis and Charcot arthropathy: Diabetes mellitus type 2 insulin-dependent Hypertension Plan: Left lower extremity cellulitis with acute on chronic open wound to the calcaneus region suspected osteomyelitis and Charcot arthropathy: Spoke with infectious disease. Patient will be admitted for further evaluation and treatment. Will start IV vancomycin and cefepime. Will monitor on telemetry. We will continue with infectious disease recommendations on wound care. We will also speak to her surgeon who did a debridement of the area in early December. Will evaluate for venous insufficiency and PVD. Patient has extensive changes to the lower extremity. Patient may benefit with IV diabetic therapy with aggressive treatment versus amputation. This was addressed in detail with the patient. Await further recommendations from surgery and infectious disease. From infectious disease perspective, recommendations are to continue with IV antibiotic therapy, wound care, hyperbaric treatment and transfer to long-term acute care facility to continue treatment before amputation is recommended. Will obtain labCBC, BMP, procalcitonin at this time. Will start IV fluids. We will continue to monitor the patient closely. Diabetes mellitus type 2 insulin-dependent: We will check Accu-Cheks and provide sliding scale. Hypertension: Need to obtain restart home medication. Code Status: Full Code DVT prophylaxis: Lovenox Advanced Care Planning-30 minutes: Plan of care addressed with the patient. Await recommendations by surgery. Infectious disease recommends long-term acute care facility placement for aggressive IV antibiotic therapy, hyperbaric and wound care. Other consideration would be amputation. Discharge Plan: Other (Long-term acute care facility placement) Plan to discharge in: Greater than 2 days - Advance Directives Does patient have a Living Will: No Does patient have a Durable POA for Healthcare: No - Code Status/Comfort Care Code Status Assessed: Yes (Patient is full code) Time Spent Managing Pts Care (In Minutes): 55
--- NOTE | 2021-01-15 17:32 | RAD REPORT ---
EXAM DESCRIPTION: MRI - Ankle Left Wo Cont - 01/15/2021 4:29 pm CLINICAL HISTORY: Ankle pain and swelling COMPARISON: none TECHNIQUE: Axial, sagittal, and coronal magnetic images of the left ankle obtained FINDINGS: Large posterior soft tissue ulceration. Extensive abnormal signal throughout calcaneus consistent with osteomyelitis. Complete tear of the distal Achilles tendon with retraction. Extensive edema within soft tissues. No additional significant osteomyelitis seen IMPRESSION: Extensive osteomyelitis calcaneus
--- NOTE | 2021-01-15 17:34 | RAD REPORT ---
EXAM DESCRIPTION: RAD - Foot Left 3 View - 01/15/2021 4:48 pm CLINICAL HISTORY: Left foot pain and swelling FINDINGS: Extensive low-density areas throughout the calcaneus consistent with osteomyelitis. Large posterior soft tissue ulceration Air is present within the lateral soft tissues of the forefoot. Cortical irregularity involves the fourth and fifth metatarsal heads suspicious for osteomyelitis. No fracture or dislocation. Osteoporosis
[2021-01-15 18:32] LABS: Absolute Lymphocytes (CBC) 1.4 K/uL (0.7-4.9); Basophils % 0.5 % (0-1.3); Hematocrit 24.5 % (36.0-45.0); Lymphocytes % 6.4 % (15.3-44.8); RBC Red Blood Cell Count 3.34 M/uL (3.86-4.86)
[2021-01-15 18:42] LABS: Albumin 1.5 g/dL (3.4-5.0); Bilirubin Total 0.6 mg/dL (0.2-1.0); Magnesium 1.8 mg/dL (1.8-2.4); Potassium 3.2 mmol/L (3.5-5.1); Protein, Total 7.6 g/dL (6.4-8.2)
[2021-01-15 18:45] LABS: Protime INR 1.32
[2021-01-15] MEDS ORDERED: ACETAMINOPHEN 500 MG TAB PO PRN (18:46)
[2021-01-15] MEDS ORDERED: MORPHINE 2 MG/ML SYR IV PRN (18:46)
[2021-01-15] MEDS ORDERED: ONDANSETRON 4 MG/2 ML VIAL IV PRN (18:46)
[2021-01-15] MEDS ORDERED: TRAMADOL HCL 50 MG TAB PO PRN (18:46)
[2021-01-15] MEDS ORDERED: HYDROCODONE/APAP 7.5/325 MG TAB PO PRN (18:46)
[2021-01-15] MEDS: INSULIN -REGULAR HUMAN 50 UNIT/0.5 ML ML SQ SCH ×2 (18:46→21:00)
[2021-01-15] MEDS ORDERED: VANCOMYCIN 2 GM in NA CHLORIDE 0.9% 500 ML IVPB SCH (19:00)
[2021-01-15 19:50] LABS: Blood Morphology Comment NOT SEEN (NOT SEEN); Platelet Estimate INCR; White Blood Cell Scan OK (OK)
[2021-01-15 20:38] VITALS: BMI 41.8
--- NOTE | 2021-01-15 21:41 | RAD REPORT ---
[facility] 9:32 pm CLINICAL HISTORY: left leg pain and swelling. COMPARISON: 2019 FINDINGS: Limited examination as the patient could not tolerate compression. Left common femoral, superficial femoral, and popliteal veins demonstrate augmentation. Doppler demo nstrates good flow. IMPRESSION: No gross evidence of a veinous thrombosis involving left lower extremity
[2021-01-15] MEDS: NA CHLORIDE 0.9% 1,000 ML IV SCH (21:50)
[2021-01-15] MEDS: CEFEPIME/SWI 1gm 10 ML IV SCH (21:51)
[2021-01-15] MEDS: FAMOTIDINE 20 MG TAB PO SCH (21:57)
[2021-01-16] MEDS: NA CHLORIDE 0.9% 1,000 ML IV SCH ×3 (01:33→22:00)
[2021-01-16 04:48] LABS: Absolute Lymphocytes (CBC) 1.4 K/uL (0.7-4.9); Basophils % 0.4 % (0-1.3); Hematocrit 23.1 % (36.0-45.0); Lymphocytes % 8.2 % (15.3-44.8); RBC Red Blood Cell Count 3.15 M/uL (3.86-4.86)
[2021-01-16 05:41] LABS: Albumin 1.3 g/dL (3.4-5.0); Bilirubin Total 0.5 mg/dL (0.2-1.0); Magnesium 1.8 mg/dL (1.8-2.4); Thyroid Stimulating Hormone 0.406 uIU/mL (0.360-3.740)
[2021-01-16 05:43] LABS: Potassium 2.8 mmol/L (3.5-5.1)
[2021-01-16 07:22] LABS: Urine Appearance CLOUDY (Clear); Urine Bilirubin NEGATIVE (Negative); Urine Blood TRACE (Negative); Urine Color YELLOW (Yellow); Urine Glucose 2+ (Negative); Urine Protein 3+ (Negative); Urine Specific Gravity 1.015 (1.005-1.030); Urine Urobilinogen 0.2 mg/dL (0.2-1.0)
[2021-01-16] MEDS: INSULIN -REGULAR HUMAN 50 UNIT/0.5 ML ML SQ SCH ×4 (07:30→20:39)
[2021-01-16] MEDS ORDERED: GLUCAGON 1 MG/VIAL IM PRN (07:31)
[2021-01-16] MEDS ORDERED: D50W 25 GM/50 ML SYRINGE IV PRN (07:31)
--- NOTE | 2021-01-16 07:38 | P.PN ---
Subjective Date of Service: 01/16/21 Primary Care Provider: Dr. Mathew; Infectious disease-Dr. Fuller Chief Complaint: Left lower extremity edema, erythema with open wound Subjective: Doing well (Patient doing well. No complaints. NPO at this time for possible surgical intervention) Physical Examination - Vital Signs Temperature: 97.6 F Blood Pressure: 146/67 Pulse: 89 Respirations: 20 Pulse Ox (%): 95 - Physical Exam General: Alert, In no apparent distress, Cooperative HEENT: Atraumatic Neck: Supple Respiratory: Clear to auscultation bilaterally, Normal air movement Cardiovascular: Normal pulses, Regular rate/rhythm Gastrointestinal: Normal bowel sounds, No tenderness, No masses, No rebound, No guarding Musculoskeletal: Other (Bandage to the left foot noted. Still with edema and erythema to the left lower extremity.) Neurological: Normal speech, Normal strength at 5/5 x4 extr, Normal tone, Normal affect - Studies Medications List Reviewed: Yes Assessment & Plan Discharge Plan: LTAC Plan to discharge in: Greater than 2 days Physician Review Additional Text: MRI: FINDINGS: Large posterior soft tissue ulceration. Extensive abnormal signal throughout calcaneus consistent with osteomyelitis. Complete tear of the distal Achilles tendon with retraction. Extensive edema within soft tissues. No additional significant osteomyelitis seen IMPRESSION: Extensive osteomyelitis calcaneus Physical Exam: GENERAL: The patient is a well-developed, well-nourished, in no apparent distress. Alert and oriented x3. VITAL SIGNS: Reviewed HEENT: Neck supple LUNGS: Clear to auscultation. No crackles or wheezes are heard. HEART: Regular rate and rhythm, no appreciable gallops, rubs, murmurs or extra heart sounds ABDOMEN: Soft, nontender, and nondistended. Positive bowel sounds. No hepatosplenomegaly was noted. EXTREMITIES: Bandage to the left foot noted. Still with edema and erythema to the left lower extremity NEUROLOGIC: The patient is oriented to person, place and time. Strength and sensation are grossly intact. Face is symmetric. SKIN: Normal color, turgor and temperature. No ulcerations or rashes noted. Impression: Left lower extremity cellulitis with acute on chronic open wound to the calcaneus region with MRI findings of extensive osteomyelitis of the calcaneus with complete tear of distal Achilles tendon with retraction and Charcot arthropathy Possible UTI Acute on chronic renal disease stage III Diabetes mellitus type 2 insulin-dependent with hyperglycemia Hypertension Anemia of chronic disease Hyperlipidemia Obesity, BMI greater than 40 Plan: Left lower extremity cellulitis with acute on chronic open wound to the calcaneus region with MRI findings of extensive osteomyelitis of the calcaneus with complete tear of distal Achilles tendon with retraction and Charcot arthropathy: Continue with IV vancomycin and cefepime. Pharmacy to monitor and adjust. Cultures obtained. Continue with wound care as recommended by infectious disease. Spoke with surgery who will evaluate patient today. Patient may require further debridement or amputation. Venous Doppler negative. Arterial Doppler pending. MRI reviewed with noted extensive changes. Spoke with infectious disease yesterday. Infectious disease recommends continued IV antibiotic therapy, hyperbarics, aggressive wound care at long-term acute care facility to salvage lower extremity. Await recommendations from surgery on their recommendations. For now will try to pursue long-term acute care facility placement. Possible UTI: Urine culture obtained. Continue IV tabetic therapy. Acute on chronic renal disease stage III: Continue IV fluids. Nephrology consulted to further evaluate and address. Diabetes mellitus type 2 insulin-dependent: Restart basal insulin and Januvia. Hold sulfonylurea. Continue sliding scale. Will obtain A1c for further evaluation. Continue to adjust medication for better control. Hypertension: Continue with home medicationmetoprolol. Will monitor and adjust appropriately. Anemia of chronic disease: Will monitor hemoglobin. May need to transfuse his hemoglobin less than 7. Will obtain iron and B12 studies. Hyperlipidemia: Continue with Lipitor Obesity, BMI greater than 40: Will address lifestyle modification education. Code Status: Full Code DVT prophylaxis: Lovenox Advanced Care Planning-30 minutes: Plan of care addressed with the patient. Await recommendations by surgery. Infectious disease recommends long-term acute care facility placement for aggressive IV antibiotic therapy, hyperbaric and wound care. Other consi deration would be amputation. Patient desires long-term acute care facility placement Time Spent Managing Pts Care (In Minutes): 55
[2021-01-16 07:49] LABS: Urine Microscopic Reflex ORDER UMIC
[2021-01-16 07:50] LABS: Urine Bacteria 20-50 /HPF (<20); Urine RBC NONE SEEN /HPF (NONE SEEN)
[2021-01-16] MEDS ORDERED: PNEUMOCOCCAL VACCINE 0.5 ML IMVAC ONE (08:00)
[2021-01-16] MEDS: KCL 20 MEQ/100 mL IVPB 20 MEQ/100 ML BAG IV SCH ×2 (08:52→11:31)
[2021-01-16] MEDS: MULTIVITAMIN TAB PO SCH (08:52)
[2021-01-16] MEDS: FOLIC ACID 1 MG TABLET PO SCH (08:52)
[2021-01-16] MEDS: ATORVASTATIN 10 MG TAB PO SCH (08:52)
[2021-01-16] MEDS: THIAMINE HCL 100 MG TABLET PO SCH (08:53)
[2021-01-16] MEDS: FAMOTIDINE 20 MG TAB PO SCH ×2 (08:53→17:59)
[2021-01-16] MEDS: ENOXAPARIN 40 MG/0.4 ML SQ SCH ×3 (08:53→18:01)
[2021-01-16] MEDS: METOPROLOL TAR 25 MG TAB PO SCH ×2 (08:58→20:38)
[2021-01-16] MEDS ORDERED: SITAGLIPTIN PHOS 100 MG TAB PO SCH (09:00)
[2021-01-16] MEDS ORDERED: MAGNESIUM SULFATE 1 gm IVPB 1 GM/100 ML BAG IV ONE (09:00)
[2021-01-16] MEDS ORDERED: CEFEPIME 1 GM/VIAL IV SCH (09:00)
--- NOTE | 2021-01-16 09:55 | P.CNS ---
Date of Consult: 01/16/21 Primary Care Provider: Dr. Mathew Chief Complaint: Left lower extremity edema, erythema with open wound History of Present Illness: Patient is a 55-year-old female with a past medical history of diabetes, hypertension, chronic left calcaneus wound was well known to our practice. Patient sees Dr. win outpatient any wound care clinic at [place]. Patient had a surgical debridement of the wound performed on December 15. The patient states that since then the wound has gotten worse. Patient was seen by for root canal patient clinic in advised to go to the hospital. ED workup showed elevated WBC, MRI showed osteomyelitis of the calcaneus bone. Patient currently denies nausea, vomiting, diarrhea, shortness breath, chest pain. Allergies latex Allergy (Mild, Verified 11/25/17 00:37) Itching Home Medications: Glipizide [Glucotrol Xl] 0.5 mg PO BID 01/24/13 Atorvastatin Calcium [Lipitor*] 10 mg PO DAILY 07/13/17 lisinopriL [Lisinopril] 20 mg PO BID 07/13/17 Insulin Degludec [Tresiba] 10 units SQ DAILY 01/16/21 Metformin HCl 1,000 mg PO BID 01/16/21 Metoprolol Tartrate [Lopressor*] 25 mg PO BID 01/16/21 Multivitamin [Multiple Vitamins] 1 each PO DAILY 01/16/21 Sitagliptin Phosphate [Januvia] 50 mg PO DAILY 01/16/21 - Past Medical/Surgical History Diabetic: Yes -: Diabetes mellitus type 2 -: Hypertension -: Hyperlipidemia -: History of osteomyelitis -: Diabetic neuropathy -: x1 -: eye surgery 1 yr and 5yrs ago -: debridement of left heel 12/2020 Psychosocial/ Personal History: Patient lives at home with son - Family History Father Medical History: Diabetes, Cancer Notes: bone cancer Mother Medical History: Cancer Notes: cervical - Social History Smoking Status: Never smoker Alcohol use: No CD- Drugs: No Caffeine use: Yes Place of Residence: Home Review of Systems 10-point ROS is otherwise unremarkable Physical Examination Temp Pulse Resp BP Pulse Ox 98.4 F 82 18 137/61 91 01/16/21 07:48 01/16/21 08:58 01/16/21 07:48 01/16/21 08:58 01/16/21 07:48 General: Alert, In no apparent distress, Obese HEENT: Atraumatic, Normocephalic Neck: Supple, 2+ carotid pulse no bruit Respiratory: Clear to auscultation bilaterally, Normal air movement Cardiovascular: No edema, Normal pulses Capillary refill: <2 Seconds Gastrointestinal: Normal bowel sounds, Hypoactive Integumentary: Diabetic ulcer (To left calcaneus: The base of wound shows majority fibrin/soft tissue. Bone exposed. Wound has foul odor.) Conclusions/Impression: Antibiotics: Vancomycin Start: 01/16 Stop: -- Cefepime Start: 01/15 stop: -- Assessment: Chronic left calcaneus open wound with osteomyelitis -chart coughs arthropathy -diabetes mellitus -anemia -hypertension Plan: Continue current antibiotic treatment. MRI confirmed osteomyelitis of calcaneus bone. Wound care: SAntyl, calcium alginate, wrapped with Kerlix daily. Surgery consulted. Medical management per primary team -continue monitor CBC and BMP -continue monitor for signs of infection Plan care discussed with Dr. Fuller Thank you for consultation
[2021-01-16 11:54] LABS: Ferritin 169.5 ng/mL (8-388)
--- NOTE | 2021-01-16 12:38 | P.CNS ---
Date of Consult: 01/16/21 Reason for Consult: Renal failure Requesting Physician: Adalid Randhawa Primary Care Provider: Dr. Mathew; Infectious disease-Dr. Fuller Chief Complaint: Left lower extremity edema, erythema with open wound History of Present Illness: 55F w/ PMHx of with history of proteinuric [id number] to be secondary to diabetic nephropathy, with baseline serum creatinine 1.0-1.4 as of December 2020 (equiv eGFR 39-58 ml/min), DM2, Htn, obesity, hyperlipidemia, anemia, and chronic left calcaneal wound, who was seen at the wound care clinic and subsequently admitted for further evaluation and management of her left calca leslie wound. She underwent wound debridement on 12/15/2020 however the wound condition did not improve. She had foul odor and exudative discharge from the wound. She also complained of paresthesia, pain, erythema, and swelling of her left lower extremity. She is now on IV antibiotic therapy via cefepime and vancomycin. Serum creatinine is 1.7 on admission. She received IV fluids. Serum creatinine improved to 1.5. urinalysis done showed proteinuria and pyuria though not an adequate urine sample. Allergies latex Allergy (Mild, Verified 11/25/17 00:37) Itching Home Medications: Glipizide [Glucotrol Xl] 0.5 mg PO BID 01/24/13 Atorvastatin Calcium [Lipitor*] 10 mg PO DAILY 07/13/17 lisinopriL [Lisinopril] 20 mg PO BID 07/13/17 Insulin Degludec [Tresiba] 10 units SQ DAILY 01/16/21 Metformin HCl 1,000 mg PO BID 01/16/21 Metoprolol Tartrate [Lopressor*] 25 mg PO BID 01/16/21 Multivitamin [Multiple Vitamins] 1 each PO DAILY 01/16/21 Sitagliptin Phosphate [Januvia] 50 mg PO DAILY 01/16/21 - Past Medical/Surgical History Diabetic: Yes -: Diabetes mellitus type 2 -: Hypertension -: Hyperlipidemia -: History of osteomyelitis -: Diabetic neuropathy -: x1 -: eye surgery 1 yr and 5yrs ago -: debridement of left heel 12/2020 Psychosocial/ Personal History: Patient lives at home with son - Family History Father Medical History: Diabetes, Cancer Notes: bone cancer Mother Medical History: Cancer Notes: cervical - Social History Smoking Status: Never smoker Alcohol use: No CD- Drugs: No Caffeine use: Yes Place of Residence: Home Review of Systems General: Weakness Eyes: Unremarkable ENT: Unremarkable Respiratory: Unremarkable Cardiovascular: Unremarkable Gastrointestinal: Unremarkable Genitourinary: Unremarkable Musculoskeletal: Leg Pain, Pedal edema Integumentary: Unremarkable (Chronic L calcaneal wound) Neurological: Weakness Lymphatics: Unremarkable Physical Examination Temp Pulse Resp BP Pulse Ox 98.2 F 73 18 150/70 H 96 01/16/21 12:00 01/16/21 12:00 01/16/21 12:00 01/16/21 12:00 01/16/21 12:00 General: Alert, In no apparent distress HEENT: Atraumatic, Normocephalic Neck: Supple Respiratory: Clear to auscultation bilaterally Cardiovascular: No rubs, No murmurs Gastrointestinal: Soft and benign, Non-distended Musculoskeletal: No clubbing, Other (+erythema, swelling on L distal LE. +L calcaneal wound) Neurological: Normal speech, Normal tone Urinary: Other (no bladder distention) External genitalia: Deferred Rectal: Deferred Conclusions/Impression: # LARISA on CKD 3 2/2 prerenal state Improving Renal ultrasound in December 2020 unremarkable Urinalysis showed proteinuria and pyuria though sample was inadequate. on antibiotics. If urine culture showing mixed tere, recollect urine with proper midstream sample. 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 Avoid. PICC. local wound care Management per other services Follow up cultures # Hypokalemia Monitor/repeat # Hypertension BP at goal Continue current antihypertensive medication regimen Monitor # DM 2 Management per primary team # Dispo LTAC dc plan ongoing
[2021-01-16] MEDS ORDERED: KCL 20 MEQ/100 mL IVPB 20 MEQ/100 ML BAG IV SCH (13:00)
[2021-01-16 13:30] LABS: Hematocrit 22.4 % (36.0-45.0)
[2021-01-16] MEDS ORDERED: POTASSIUM CL SA 10 MEQ TAB PO SCH (14:00)
[2021-01-16] MEDS: COLLAGENASE 30 GM OINTMENT TOP SCH (14:10)
[2021-01-16] MEDS: CEFEPIME/SWI 1gm 10 ML IV SCH (16:24)
[2021-01-16] MEDS: VANCOMYCIN 2 GM in NA CHLORIDE 0.9% 500 ML IVPB SCH (17:30)
[2021-01-16] MEDS ORDERED: POTASSIUM CL SA 10 MEQ TAB PO ONE (18:00)
--- NOTE | 2021-01-16 18:56 | CON ---
Date of Consultation: 01/16/2021 Diagnosis: Diabetic left foot ulcer with osteomyelitis, bone exposed. History Of Present Illness: This is the case of a 55-year-old patient with multiple medical problems including lymphedema, chronic inflammation and diabetic ulcer of the left foot region. Very limited mobilization since [facility], diagnosed with osteomyelitis and nonheali ng wound. Fully explained at that moment, the need for mobilization, need for offloading. She has b een handled by Dr. Fuller and apparently came to the ER, found to have cellulitis and open wound and a surgical consult was obtained. Past Medical History: Include diabetes, hyperlipidemia, very limited mobilization. She does not wan t to get out of bed or out of wheelchair. History of osteomyelitis. Family History: Bone cancer. Social History: She does not smoke. She does not drink alcohol. Medications: Reviewed including insulin. Review of Systems: No shortness of breath. No chest pain. No fever. She has very limited understanding of concept of off-loading pressure out of that area. We many times trying to explain to her the importance of it. Physical Examination: General: The patient is awake, alert. Eyes: Pupils anicteric. Abdomen: Soft and depressible. Extremities: Good capillary refill. Over the left side, patient has an open wound. Please see my co nsult for about a [facility]. Large areas with exposed bone, calcaneus bon e mostly exposed edges with no evidence of granulation tissue. Barely any bleeding at all. As the same, we saw her about a week or two ago at the [facility], but this time shows evid ence of cellulitis of the lower leg too. Imaging reviewed. Assessment: A 55-year-old patient with diabetic foot ulcer, osteomyelitis, calcaneus bone exposed an d limited compliance with offloading. Thus we explained to her before the off-loading, it is very im portant diabetes control. I am not sure we can save this foot. We discussed previously about the le ft below-knee amputation. At this moment it is even limited due to cellulitis over that area too. I nfectious Disease is working, they believe they might just have a plan for her to improve her conditi on and that is what we wish, but if not, she was fully explained the benefits, alternatives, and risk s of left below-knee amputation, which include also infection, bleeding, damage to adjacent structure s, anesthesia complication, nonhealing wound. We will discuss with the primary doctor to see what th e next treatment. At least from our standpoint at [facility] we believe she should be in Santyl and offloading shoes, frequent turning. CINDY/RUBINA Voice ID: [id number] Report ID: [id number]
[2021-01-16] MEDS ORDERED: VANCOMYCIN 2 GM in NA CHLORIDE 0.9% 500 ML IVPB SCH (19:00)
[2021-01-16] MEDS: INSULIN GLARGINE 100 UNITS/ML SQ SCH (20:40)
[2021-01-17] MEDS ORDERED: ACETAMINOPHEN 500 MG TAB PO ONE (00:56)
[2021-01-17] MEDS: NA CHLORIDE 0.9% 1,000 ML IV SCH ×2 (03:03→08:00)
[2021-01-17 05:14] LABS: Absolute Lymphocytes (CBC) 1.3 K/uL (0.7-4.9); Basophils % 0.5 % (0-1.3); Lymphocytes % 6.5 % (15.3-44.8); MPV 7.7 fL (7.6-11.3); RBC Red Blood Cell Count 2.83 M/uL (3.86-4.86)
[2021-01-17 05:17] LABS: Hematocrit 20.7 % (36.0-45.0)
[2021-01-17 05:25] LABS: Albumin 1.2 g/dL (3.4-5.0); Bilirubin Total 0.4 mg/dL (0.2-1.0); Magnesium 1.9 mg/dL (1.8-2.4); Potassium 3.4 mmol/L (3.5-5.1); Protein, Total 6.3 g/dL (6.4-8.2)
--- NOTE | 2021-01-17 05:59 | P.PN ---
Subjective Date of Service: 01/17/21 Primary Care Provider: Dr. Mathew; Infectious disease-Dr. Fuller Chief Complaint: Left lower extremity edema, erythema with open wound Subjective: Other (Patient doing well at this time. Pain well controlled.) Physical Examination - Vital Signs Temperature: 97.2 F Blood Pressure: 126/58 Pulse: 84 Respirations: 18 Pulse Ox (%): 98 - Studies Medications List Reviewed: Yes Assessment & Plan Discharge Plan: LTAC Plan to discharge in: 24 Hours Physician Review Additional Text: MRI: FINDINGS: Large posterior soft tissue ulceration. Extensive abnormal signal throughout calcaneus consistent with osteomyelitis. Complete tear of the distal Achilles tendon with retraction. Extensive edema within soft tissues. No additional significant osteomyelitis seen IMPRESSION: Extensive osteomyelitis calcaneus Physical Exam: GENERAL: The patient is a well-developed, well-nourished, in no apparent distress. Alert and oriented x3. VITAL SIGNS: Reviewed HEENT: Neck supple LUNGS: Clear to auscultation. No crackles or wheezes are heard. HEART: Regular rate and rhythm, no appreciable gallops, rubs, murmurs or extra heart sounds ABDOMEN: Soft, nontender, and nondistended. Positive bowel sounds. No hepatosplenomegaly was noted. EXTREMITIES: Bandage to the left foot noted. Still with edema and erythema to the left lower extremity NEUROLOGIC: The patient is oriented to person, place and time. Strength and sensation are grossly intact. Face is symmetric. SKIN: Normal color, turgor and temperature. No ulcerations or rashes noted. Impression: Left lower extremity cellulitis with acute on chronic open wound to the calcaneus region with MRI findings of extensive osteomyelitis of the calcaneus with complete tear of distal Achilles tendon with retraction and bacteremia Possible UTI Acute on chronic renal disease stage III Diabetes mellitus type 2 insulin-dependent with hyperglycemia Hypertension Anemia of chronic disease Hyperlipidemia Obesity, BMI greater than 40 Plan: Left lower extremity cellulitis with acute on chronic open wound to the calcaneus region with MRI findings of extensive osteomyelitis of the calcaneus with complete tear of distal Achilles tendon with retraction and bacteremia: Continue with IV vancomycin and cefepime. Pharmacy to monitor and adjust. Cultures obtained. Blood cultures positive for gram-positive cocci. Await final results. Will obtain echocardiogram to further evaluate and rule out vegetation. MRI reviewed. Surgery recommended amputation. Patient does not want amputation at this time. Infectious disease recommends long-term acute care facility placement for IV antibiotic therapy, hyperbarics and aggressive wound care. Patient desires this at this time. Referral sent for long-term acute care facility placement. Anticipate approval likely in the next 24 hours. Will transfer once approved. Possible UTI: Urine culture obtained. Continue IV antibiotic therapy. Acute on chronic renal disease stage III: Continue IV fluids. Nephrology consulted to further evaluate and address. Diabetes mellitus type 2 insulin-dependent: Continue basal insulin and Januvia. Hold sulfonylurea. Continue sliding scale. Will obtain A1c for further evaluation. Continue to adjust medication for better control. Hypertension: Continue with home medicationmetoprolol. Will monitor and adjust appropriately. Anemia of chronic disease: Hemoglobin less than 7.0. Will transfuse 1 unit of blood. Maintain hemoglobin above 7.5. Recheck hemoglobin after transfusion. Hyperlipidemia: Continue with Lipitor Obesity, BMI greater than 40: Will address lifestyle modification education. Code Status: Full Code DVT prophylaxis: Lovenox Advanced Care Planning-30 minutes: Plan of care addressed with the patient. Surgery recommends amputation. Patient does not desire this at this time. Infectious disease recommends long-term acute care facility placement for aggressive IV antibiotic therapy, hyperbaric and wound care. Patient desires long-term acute care facility placement. Await approval for long-term acute care facility placement. Time Spent Managing Pts Care (In Minutes): 55
[2021-01-17] MEDS: SITAGLIPTIN PHOS 100 MG TAB PO SCH (07:15)
[2021-01-17] MEDS: FAMOTIDINE 20 MG TAB PO SCH ×2 (07:15→20:37)
[2021-01-17] MEDS: THIAMINE HCL 100 MG TABLET PO SCH (07:16)
[2021-01-17] MEDS: METOPROLOL TAR 25 MG TAB PO SCH ×2 (07:16→20:33)
[2021-01-17] MEDS: ENOXAPARIN 40 MG/0.4 ML SQ SCH (07:16)
[2021-01-17] MEDS: MULTIVITAMIN TAB PO SCH (07:16)
[2021-01-17] MEDS: FOLIC ACID 1 MG TABLET PO SCH (07:16)
[2021-01-17] MEDS: COLLAGENASE 30 GM OINTMENT TOP SCH (07:17)
[2021-01-17] MEDS: INSULIN -REGULAR HUMAN 50 UNIT/0.5 ML ML SQ SCH ×4 (07:17→20:33)
[2021-01-17] MEDS: ATORVASTATIN 10 MG TAB PO SCH (07:17)
[2021-01-17] MEDS ORDERED: D50W 25 GM/50 ML VIAL IV PRN (08:00)
[2021-01-17] MEDS ORDERED: POTASSIUM CL SA 10 MEQ TAB PO ONE ×2 (08:00→15:03)
[2021-01-17] MEDS ORDERED: NA CHLORIDE 0.9% 250 ML ONE (08:22)
[2021-01-17] MEDS ORDERED: COLLAGENASE 30 GM OINTMENT TOP SCH (09:00)
--- NOTE | 2021-01-17 12:21 | P.PN ---
Subjective Date of Service: 01/17/21 Primary Care Provider: Dr. Mathew; Infectious disease-Dr. Fuller Chief Complaint: Left lower extremity edema, erythema with open wound 55F w/ PMHx of with history of proteinuric [id number] to be secondary to diabetic nephropathy, with baseline serum creatinine 1.4 a, DM2, Htn, obesity, hyperlipidemia, anemia, and chronic left calcaneal wound, who was seen at the wound care clinic and subsequently admitted for further evaluation and management of her left calcaneal wound. in ER Cr 1.7 , improved on IVF today no overnight events Hvb 6/0 scheduled for PRBC will stop IVF Physical exam general: AAOX3, NAD , obese Neck; Supple, No elevated JVD hear: RRR, normal S1,2 no murmur or rub Chest: CTAB, no rales or wheezes Abdomen: Soft , Nt Extremities edema, Feet dreessing # LARISA on CKD 3 2/2 prerenal state Improving Renal ultrasound in December 2020 unremarkable will dc IVF renal dose meds monitor Vanco level Monitor renal panel # anemia of chronic disease plan for 1 PRBC # Chronic left calcaneal wound MRI showed L calcaneal osteomyelitis On IV cefepime + vancomycin monitor Vanco level Management per other services Follow up cultures # Hypokalemia Monitor/repeat # Hypertension BP at goal Continue current antihypertensive medication regimen Monitor # DM 2 Management per primary team # Dispo LTAC dc plan ongoing total time spent 45 min Physical Examination - Vital Signs Temperature: 97.4 F Blood Pressure: 137/73 Pulse: 72 Respirations: 18 Pulse Ox (%): 100 - Studies Medications List Reviewed: Yes
--- NOTE | 2021-01-17 13:51 | RAD REPORT ---
EXAM DESCRIPTION: US - Lower Extremity Artery Uni Ltd - 01/15/2021 9:32 pm CLINICAL HISTORY: Left leg pain. Peripheral vascular disease COMPARISON: None FINDINGS: The waveforms of the left common femoral, left superficial femoral, left popliteal, left posterior ti bial and left dorsalis pedis arteries are generally monophasic. IMPRESSION: Monophasic waveforms throughout the arteries of the left lower extremity may indicate a significant l eft iliac arterial stenosis
[2021-01-17] MEDS ORDERED: FUROSEMIDE 20 MG/ 2ML VIAL IV ONE (14:00)
[2021-01-17 14:44] LABS: Hematocrit 28.3 % (36.0-45.0)
[2021-01-17 15:40] LABS: Urine Protein/Creatinine Ratio 9.61 ratio (<0.15)
[2021-01-17] MEDS: CEFEPIME/SWI 1gm 10 ML IV SCH (16:00)
[2021-01-17 16:06] LABS: Urine Appearance Clear (Clear); Urine Bilirubin Negative (Negative); Urine Blood 1+ (Negative); Urine Color Yellow (Yellow); Urine Glucose 1+ (Negative); Urine Protein 3+ (Negative); Urine Urobilinogen 0.2 mg/dL (0.2-1.0); Urine pH 6.5 (5.0-7.0)
[2021-01-17 16:08] LABS: Urine Microscopic Reflex ORDER UMIC
[2021-01-17 16:22] LABS: Urine Bacteria <20 /HPF (<20); Urine RBC <5 /HPF (NONE SEEN); Urine Yeast PRESENT (NONE SEEN)
[2021-01-17] MEDS: VANCOMYCIN 2 GM in NA CHLORIDE 0.9% 500 ML IVPB SCH (17:40)
[2021-01-17] MEDS: INSULIN GLARGINE 100 UNITS/ML SQ SCH (20:34)
[2021-01-17] MEDS ORDERED: FAMOTIDINE 20 MG TAB ONE (20:56)
--- NOTE | 2021-01-18 06:07 | P.PN ---
Subjective Date of Service: 01/18/21 Primary Care Provider: Dr. Mathew; Infectious disease-Dr. Fuller Chief Complaint: Left lower extremity edema, erythema with open wound Subjective: Improving, Doing well Physical Examination - Vital Signs Temperature: 97.9 F Blood Pressure: 119/58 Pulse: 73 Respirations: 16 Pulse Ox (%): 94 - Studies Medications List Reviewed: Yes Assessment & Plan Discharge Plan: LTAC Plan to discharge in: 24 Hours Physician Review Additional Text: MRI: FINDINGS: Large posterior soft tissue ulceration. Extensive abnormal signal throughout calcaneus consistent with osteomyelitis. Complete tear of the distal Achilles tendon with retraction. Extensive edema within soft tissues. No additional significant osteomyelitis seen IMPRESSION: Extensive osteomyelitis calcaneus Physical Exam: GENERAL: The patient is a well-developed, well-nourished, in no apparent distress. Alert and oriented x3. VITAL SIGNS: Reviewed HEENT: Neck supple LUNGS: Clear to auscultation. No crackles or wheezes are heard. HEART: Regular rate and rhythm, no appreciable gallops, rubs, murmurs or extra heart sounds ABDOMEN: Soft, nontender, and nondistended. Positive bowel sounds. No hepatosplenomegaly was noted. EXTREMITIES: Bandage to the left foot noted. Still with edema and erythema to the left lower extremity NEUROLOGIC: The patient is oriented to person, place and time. Strength and sensation are grossly intact. Face is symmetric. SKIN: Normal color, turgor and temperature. No ulcerations or rashes noted. Impression: Left lower extremity cellulitis with acute on chronic open wound to the calcaneus region with MRI findings of extensive osteomyelitis of the calcaneus with complete tear of distal Achilles tendon with retraction and bacteremia, wound culture showing Gram-negative rods, blood culture showing Gram-positive Cocci Possible UTI Acute on chronic renal disease stage III Diabetes mellitus type 2 insulin-dependent with hyperglycemia Hypertension Anemia of chronic disease Hyperlipidemia Obesity, BMI greater than 40 Plan: Left lower extremity cellulitis with acute on chronic open wound to the calcaneus region with MRI findings of extensive osteomyelitis of the calcaneus with complete tear of distal Achilles tendon with retraction and bacteremia, wound culture showing Gram-negative rods, blood culture showing Gram-positive Cocci: Continue with IV vancomycin and cefepime. Pharmacy to monitor and adjust. Await final results from cultures. Blood cultures positive for gram- positive cocci, suspect this may be a contaminant. Will obtain echocardiogram to further evaluate and rule out vegetation. MRI reviewed. Surgery recommended amputation. Patient does not want amputation at this time. Infectious disease recommends long-term acute care facility placement for IV antibiotic therapy, hyperbarics and aggressive wound care. Patient desires this at this time. Referral sent for long-term acute care facility placement. Anticipate approval likely in the next 24 hours. Will transfer once approved. I will turn the service over to the hospitalist team tomorrow. I will go plan of care with him. Possible UTI: Urine culture obtained. Culture remains negative. Continue IV antibiotic therapy. Acute on chronic renal disease stage III: Continue IV fluids. Nephrology consulted to further evaluate and address. Diabetes mellitus type 2 insulin-dependent: Continue current medication. Will increase basal insulin for better control. Hold sulfonylurea. Continue sliding scale. Hemoglobin A1c 9.2. Continue to adjust medication for better control. Hypertension: Will increase metoprolol to 50 mg 1 pill twice daily. Continue to hold lisinopril due to acute on chronic renal disease.. Will monitor and adjust appropriately. Anemia of chronic disease: Hemoglobin less than 7.0. Patient was given 1 unit of blood yesterday. Maintain hemoglobin above 7.5. Will monitor hemoglobin Hyperlipidemia: Continue with Lipitor Obesity, BMI greater than 40: Will address lifestyle modification education. Code Status: Full Code DVT prophylaxis: Lovenox Advanced Care Planning-30 minutes: Plan of care addressed with the patient. Surgery recommends amputation. Patient does not desire this at this time. Infectious disease recommends long-term acute care facility placement for aggressive IV antibiotic therapy, hyperbaric and wound care. Patient desires long-term acute care facility placement. Await approval for long-term acute care facility placement. Time Spent Managing Pts Care (In Minutes): 55
[2021-01-18 06:20] LABS: Absolute Lymphocytes (CBC) 1.4 K/uL (0.7-4.9); Basophils % 0.4 % (0-1.3); Hematocrit 24.3 % (36.0-45.0); Lymphocytes % 8.2 % (15.3-44.8); MPV 7.9 fL (7.6-11.3); RBC Red Blood Cell Count 3.23 M/uL (3.86-4.86)
[2021-01-18 06:41] LABS: Albumin 1.1 g/dL (3.4-5.0); Bilirubin Total 0.3 mg/dL (0.2-1.0); Magnesium 1.9 mg/dL (1.8-2.4); Potassium 3.7 mmol/L (3.5-5.1); Protein, Total 6.5 g/dL (6.4-8.2)
[2021-01-18] MEDS ORDERED: POTASSIUM CL SA 10 MEQ TAB PO ONE (07:44)
[2021-01-18] MEDS ORDERED: VANCOMYCIN 2.25 GM in NA CHLORIDE 0.9% 500 ML IVPB SCH ×2 (09:00→18:00)
[2021-01-18] MEDS: ENOXAPARIN 40 MG/0.4 ML SQ SCH (09:00)
[2021-01-18 09:09] VITALS: O2SAT 98
[2021-01-18] MEDS: INSULIN -REGULAR HUMAN 50 UNIT/0.5 ML ML SQ SCH ×3 (09:30→17:15)
[2021-01-18] MEDS: MULTIVITAMIN TAB PO SCH (09:32)
[2021-01-18] MEDS: SITAGLIPTIN PHOS 100 MG TAB PO SCH (09:32)
[2021-01-18] MEDS: METOPROLOL TAR 25 MG TAB PO SCH (09:33)
[2021-01-18] MEDS: THIAMINE HCL 100 MG TABLET PO SCH (09:34)
[2021-01-18] MEDS: FOLIC ACID 1 MG TABLET PO SCH (09:34)
[2021-01-18] MEDS: FAMOTIDINE 20 MG TAB PO SCH (09:35)
[2021-01-18] MEDS: ATORVASTATIN 10 MG TAB PO SCH (09:35)
[2021-01-18] MEDS: COLLAGENASE 30 GM OINTMENT TOP SCH (09:36)
--- NOTE | 2021-01-18 14:06 | P.PN ---
Subjective Date of Service: 01/18/21 Primary Care Provider: Dr. Mathew; Infectious disease-Dr. Fuller Chief Complaint: Left lower extremity edema, erythema with open wound 55F w/ PMHx of with history of proteinuric [id number] to be secondary to diabetic nephropathy, with baseline serum creatinine 1.4 a, DM2, Htn, obesity, hyperlipidemia, anemia, and chronic left calcaneal wound, who was seen at the wound care clinic and subsequently admitted for further evaluation and management of her left calcaneal wound. in ER Cr 1.7 , improved on IVF today no overnight events S/p PRBC cont ABX plan to transfer to LTAC Physical exam general: AAOX3, NAD , obese Neck; Supple, No elevated JVD hear: RRR, normal S1,2 no murmur or rub Chest: CTAB, no rales or wheezes Abdomen: Soft , Nt Extremities edema, Feet dreessing # LARISA on CKD 3 2/2 prerenal state Improving Renal ultrasound in December 2020 unremarkable will dc IVF renal dose meds monitor Vanco level Monitor renal panel # anemia of chronic disease plan for 1 PRBC # Chronic left calcaneal wound MRI showed L calcaneal osteomyelitis On IV cefepime + vancomycin monitor Vanco level Management per other services Follow up cultures # Hypokalemia Monitor/repeat # Hypertension BP at goal Continue current antihypertensive medication regimen Monitor # DM 2 Management per primary team # Dispo LTAC dc plan ongoing total time spent 45 min Physical Examination - Vital Signs Temperature: 97.9 F Blood Pressure: 119/58 Pulse: 73 Respirations: 16 Pulse Ox (%): 94 - Studies Medications List Reviewed: Yes
--- NOTE | 2021-01-18 14:41 | P.DS ---
Admission Date: 01/15/21 Discharge Date: 01/18/21 Primary Care Provider: Dr. Mathew; Infectious disease-Dr. Fuller Disposition: [facility] Discharge Condition: GOOD Reason for Admission: Left lower extremity edema, erythema with open wound Consultations: Infectious disease-Dr. Fuller Surgery-Dr. Richardson Procedures: COVID: Negative MRI: FINDINGS: Large posterior soft tissue ulceration. Extensive abnormal signal throughout calcaneus consistent with osteomyelitis. Complete tear of the distal Achilles tendon with retraction. Extensive edema within soft tissues. No additional significant osteomyelitis seen IMPRESSION: Extensive osteomyelitis calcaneus Venous doppler: COMPARISON: 2020 FINDINGS: Limited examination as the patient could not tolerate compression. Left common femoral, superficial femoral, and popliteal veins demonstrate augmentation. Doppler demonstrates good flow. IMPRESSION: No gross evidence of a veinous thrombosis involving left lower extremity Arterial doppler: FINDINGS: The waveforms of the left common femoral, left superficial femoral, left popliteal, left posterior tibial and left dorsalis pedis arteries are generally monophasic. IMPRESSION: Monophasic waveforms throughout the arteries of the left lower extremity may indicate a significant left iliac arterial stenosis Medical Problem List: Left lower extremity cellulitis with acute on chronic open wound to the calcaneus region with MRI findings of extensive osteomyelitis of the calcaneus with complete tear of distal Achilles tendon with retraction and bacteremia, wound culture showing Gram-negative rods, blood culture showing Gram-positive Cocci Possible UTI Acute on chronic renal disease stage III PVD with or toe Doppler showing possible left iliac arterial stenosis Diabetes mellitus type 2 insulin-dependent with hyperglycemia Hypertension Anemia of chronic disease Hyperlipidemia Obesity, BMI greater than 40 Brief History of Present Illness: 55-year-old female with history of diabetes, hypertension. Patient was seen at wound care clinic by infectious disease. Patient has chronic open wound to the left calcaneus. Bone is exposed. Patient appears to have Charcot arthropathy. Patient had debridement by surgery on December 15. Since that time area has gotten worse. The left open wound has some exudate. Foul smell is noted. Patient with erythema, swelling to the lower extremity. Cellulitis with osteomyelitis is suspected. Infectious disease recommended inpatient admission for further evaluation and treatment. Patient has noted poor oral intake. Patient also reported a fever today. The patient was seen in the ER for direct admission. Lab to be obtained. IV antibiotic therapy to be initiated. Patient to receive IV fluids. Hospital Course: Patient presented with Left lower extremity cellulitis with acute on chronic open wound to the calcaneus region with MRI findings of extensive osteomyelitis of the calcaneus with complete tear of distal Achilles tendon with retraction. Patient was admitted for further evaluation. Patient had been seen by infectious disease who recommended admission. The patient was also found to have bacteremia. The patient was evaluated by surgery who with seen the patient in the past. Surgery recommended amputation to the left lower extremity. Patient did not desire this. Infectious disease recommended transfer to [facility] placement for continued IV antibiotics therapy, wound care and hyperbaric treatment. Patient plans to pursue treatment. If no success patient would consider amputation. Arterial Doppler showed possible left iliac arterial stenosis. This can be further evaluated at the [facility]. Patient has been accepted. Patient will continue treatment at the [facility]. Infectious Disease plans to follow patient at the facility. Prior to discharge wound culture shows positive for Gram-negative rods. 2/4 blood cultures were positive for Gram-positive Cocci. This appears to be contaminants. Further adjustments in antibiotics can be done at the [facility]. Patient with acute on chronic renal disease stage III. Patient remained stable on IV fluids. Patient seen by nephrology. This can be further managed at the [facility]. Patient with diabetes mellitus type 2 insulin-dependent. Patient will continue with insulin-Lantus. Further adjustment can be done at the [facility] facility for better control. Hemoglobin A1c 9.2. Patient with hypertension. Patient previously on lisinopril. This has been discontinued due to her acute on chronic renal disease. Metoprolol has been increased to 50 mg 1 pill twice daily for better control. Patient with anemia chronic disease. Patient did receive 1 unit of blood. Recommend to maintain hemoglobin above 7.5. This can be further monitored at the [facility]. Patient with hyperlipidemia. Patient will continue with Lipitor. As mentioned above patient with peripheral vascular disease. Left iliac arterial stenosis noted this can be further evaluated at the [facility]. Vital Signs/Physical Exam: Temp Pulse Resp BP Pulse Ox 97.9 F 73 16 119/58 L 94 01/18/21 14:06 01/18/21 14:06 01/18/21 14:06 01/18/21 14:06 01/18/21 14:06 General: Alert, In no apparent distress, Oriented x3, Cooperative HEENT: Atraumatic Neck: Supple Respiratory: Clear to auscultation bilaterally Cardiovascular: Normal pulses, Regular rate/rhythm Gastrointestinal: Normal bowel sounds, Soft and benign, Non-distended, No masses, No rebound, No guarding Integumentary: Other (bandage to the left foot) Neurological: Normal speech, Normal strength at 5/5 x4 extr, Normal tone, Normal affect Laboratory Data at Discharge: WBC 16.80 K/uL (4.3-10.9) H D 01/18/21 05:56 Hgb 7.8 g/dL (12.0-15.0) L 01/18/21 05:56 Hct 24.3 % (36.0-45.0) L 01/18/21 05:56 Plt Count 493 K/uL (152-406) H 01/18/21 05:56 PT 15.2 SECONDS (9.5-12.5) H 01/15/21 18:16 INR 1.32 01/15/21 18:16 APTT 24.9 SECONDS (24.3-36.9) 01/15/21 18:16 Sodium 139 mmol/L (136-145) 01/18/21 05:56 Potassium 3.7 mmol/L (3.5-5.1) 01/18/21 05:56 BUN 16 mg/dL (7-18) 01/18/21 05:56 Creatinine 1.43 mg/dL (0.55-1.3) H 01/18/21 05:56 Glucose 227 mg/dL (74-106) H 01/18/21 05:56 Magnesium 1.9 mg/dL (1.8-2.4) 01/18/21 05:56 Total Bilirubin 0.3 mg/dL (0.2-1.0) 01/18/21 05:56 AST 17 U/L (15-37) 01/18/21 05:56 ALT 12 U/L (12-78) 01/18/21 05:56 Alkaline Phosphatase 90 U/L (45-117) 01/18/21 05:56 Triglycerides 163 mg/dL (<150) H 01/16/21 04:22 Cholesterol 61 mg/dL (<200) 01/16/21 04:22 HDL Cholesterol 11 mg/dL (40-60) L 01/16/21 04:22 Cholesterol/HDL Ratio 5.55 01/16/21 04:22 Home Medications: Glipizide [Glucotrol Xl] 0.5 mg PO BID 01/24/13 Atorvastatin Calcium [Lipitor*] 10 mg PO DAILY 07/13/17 lisinopriL [Lisinopril] 20 mg PO BID 07/13/17 Insulin Degludec [Tresiba] 10 units SQ DAILY 01/16/21 Metformin HCl 1,000 mg PO BID 01/16/21 Metoprolol Tartrate [Lopressor*] 25 mg PO BID 01/16/21 Multivitamin [Multiple Vitamins] 1 each PO DAILY 01/16/21 Sitagliptin Phosphate [Januvia] 50 mg PO DAILY 01/16/21 Physician Discharge Instructions: Transfer to long-term acute care facility. Diet: ADA Activity: Fall precautions Followup: ClaritaOTClaritaOT [Primary Care Provider] - Time spent managing pt's care (in minutes): 55
[2021-01-18] MEDS: CEFEPIME/SWI 1gm 10 ML IV SCH (17:15)
[2021-01-18 17:21] VITALS: BP 188/70; TEMP 99.5
[2021-01-18] MEDS ORDERED: INSULIN GLARGINE 100 UNITS/ML SQ SCH (21:00)
[2021-01-18] MEDS ORDERED: METOPROLOL TAR 25 MG TAB PO SCH (21:00)
--- NOTE | 2021-01-19 10:38 | PN ---
Date of Progress Note: 01/18/2021 Subjective: The patient is lying in bed. No new complaints. Denies any headache, nausea, vomiting, chest pain, abdominal pain, constipation, or diarrhea. Objective: Vital Signs: Stable. Lungs: Basal crackles. Heart: S1, S2. Regular. Abdomen: Soft, nontender. Bowel sounds present. Extremity: Left heel with ulceration and bony prominence calcaneus are seen. Another blister in the medial aspect of the left foot was also noted. Laboratory Data: Labs reviewed. Assessment And Plan: Left heel osteomyelitis, diabetic foot ulcer, new blister formation, cellulitis of the leg, diabetes mellitus, diabetic neuropathy. Continue current antibiotics. The patient to b e transferred to long-term acute care. NF/MODL Voice ID: [id number] Report ID: [id number]
== END 2021-01-18 19:15 | DRG 872 ==
LOC: ER 13:50 → ERHOLD 15:00 → 4TH 17:17
PROVIDERS: ADMIT Family Medicine; ATTEND Family Medicine
PROC: 30233N1 Transfusion of Nonautologous Red Blood Cells into Peripheral Vein, Percutaneous Approach (ICD-10-PCS; principal; 2021-01-17)
DX: A41.9 Sepsis, unspecified organism (principal); L03.116 Cellulitis of left lower limb; N39.0 Urinary tract infection, site not specified; M86.8X7 Other osteomyelitis, ankle and foot; Z68.41 Body mass index [BMI] 40.0-44.9, adult; N17.9 Acute kidney failure, unspecified; E11.69 Type 2 diabetes mellitus with other specified complication; E11.65 Type 2 diabetes mellitus with hyperglycemia; E87.6 Hypokalemia; S86.012A Strain of left Achilles tendon, initial encounter; I12.9 Hypertensive chronic kidney disease with stage 1 through stage 4 chronic kidney disease, or unspecified chronic kidney disease; E11.22 Type 2 diabetes mellitus with diabetic chronic kidney disease; N18.30 Chronic kidney disease, stage 3 unspecified; Z79.4 Long term (current) use of insulin; E11.51 Type 2 diabetes mellitus with diabetic peripheral angiopathy without gangrene; E11.610 Type 2 diabetes mellitus with diabetic neuropathic arthropathy; E66.9 Obesity, unspecified; B96.4 Proteus (mirabilis) (morganii) as the cause of diseases classified elsewhere; D63.8 Anemia in other chronic diseases classified elsewhere; E78.5 Hyperlipidemia, unspecified; E11.21 Type 2 diabetes mellitus with diabetic nephropathy; Z20.822 Contact with and (suspected) exposure to COVID-19
CPT/HCPCS: 36415; 36430; 71045; 80053; 80061; 80202; 81003; 81015; 82570; 82607; 82728; 82947; 83036; 83540; 83605; 83735; 83935; 84132; 84145; 84156; 84300; 84439; 84443; 84466; 85014; 85018; 85025; 85610; 85730; 86850; 86900; 86901; 87040; 87070; 87075; 87077; 87086; 87088; 87186; 87205; 93005; 93926; 93971; 99281; J0692; J1650; J1815; J1940; J3370; J3475; J3480; J3590; J7030; J7040; J7050; P9016; U0003

== ENCOUNTER 2021-04-30 18:33 | Emergency (ER) | payer OTHER ==
[2021-04-30 19:40] LABS: Absolute Lymphocytes (CBC) 1.5 K/uL (0.7-4.9); Basophils % 0.8 % (0-1.3); Hematocrit 33.7 % (36.0-45.0); Lymphocytes % 11.4 % (15.3-44.8); MPV 7.1 fL (7.6-11.3); RBC Red Blood Cell Count 4.17 M/uL (3.86-4.86)
[2021-04-30] MEDS ORDERED: ONDANSETRON 4 MG/2 ML VIAL ONE (19:48)
[2021-04-30] MEDS ORDERED: MORPHINE 4 MG/ML SYR ONE ×2 (19:48→23:43)
[2021-04-30] MEDS ORDERED: NA CHLORIDE 0.9% 1,000 ML ONE (19:49)
[2021-04-30 20:21] LABS: ALT/SGPT 28 U/L (12-78); AST/SGOT 27 U/L (15-37); Albumin 2.2 g/dL (3.4-5.0); Alkaline Phosphatase 126 U/L (45-117); BUN Blood Urea Nitrogen 19 mg/dL (7-18); Bicarbonate 30 mmol/L (21-32); Bilirubin Direct < 0.1 mg/dL (0-0.2); Bilirubin Total 0.2 mg/dL (0.2-1.0); Glucose Level 191 mg/dL (74-106); Lipase 226 U/L (73-393); Potassium 4.2 mmol/L (3.5-5.1); Protein, Total 9.5 g/dL (6.4-8.2); Sodium Level 135 mmol/L (136-145)
--- NOTE | 2021-04-30 20:35 | RAD REPORT ---
EXAM DESCRIPTION: RAD - Chest Single View - 04/30/2021 8:28 pm CLINICAL HISTORY: PAIN Chest pain. COMPARISON: Chest Single View dated 01/15/2021; Chest Single View dated 11/24/2017; Chest Single View dated 11/23/2017; Chest Pa And Lat (2 Views) dated 11/23/2017 FINDINGS: Portable technique limits examination quality. The lungs are grossly clear. The heart is normal in size. No displaced fractures. IMPRESSION: No acute intrathoracic process suspected.
--- NOTE | 2021-04-30 21:11 | RAD REPORT ---
EXAM DESCRIPTION: CT - Stone Protocol - 04/30/2021 9:00 pm CLINICAL HISTORY: Flank pain. FLANK PAIN COMPARISON: No comparisons TECHNIQUE: Axial images were obtained without oral or IV contrast. Lack of contrast limits solid org an and vascular assessment. The [id number] spans the entirety of the system partially obscuring uppermost abdomen and lung bases. Coronal reformatted images were obtained and reviewed. All CT scans are performed using dose optimization technique as appropriate and may include automated exposure control or mA/KV adjustment according to patient size. FINDINGS: The lower lung paul are clear. Imaged portions of the liver and spleen show no suspicious findings on non-contrast imaging. The panc reas and adrenal glands are normal. No pathologic lymphadenopathy in the abdomen or pelvis. No urinary tract stones or obstructive uropathy. No bowel obstruction, free air, free fluid or abscess. The appendix is not identified as a discrete s tructure, however, no secondary findings of appendicitis are identified. Small fat containing umbilic al hernia. No significant bony abnormality. IMPRESSION: No urinary tract stones or obstructive uropathy.
[2021-04-30 22:56] LABS: Urine Blood Trace-intact (Negative); Urine Glucose 2+ (Negative); Urine Protein 3+ (Negative); Urine Specific Gravity >=1.030 (1.005-1.030); Urine pH 5.5 (5.0-7.0)
[2021-04-30] MEDS ORDERED: CEFTRIAXONE/SWI 1gm 1 GM/10 ML SYR ONE (23:31)
--- NOTE | 2021-04-30 23:48 | EDPHYS ---
Physician Documentation [facility] Name: Dang Sequeira Age: 55 yrs Sex: Female : 1965 Arrival Date: 04/30/2021 Time: 18:35 Bed 11 Private MD: CATIA Physician Enrique Brothers HPI: 04/30 19:19 This 55 yrs old Female presents to ER via Wheelchair with complaints of Back mh7 Pain. 19:19 The patient complains of pain in the right flank. The pain does not radiate. Onset: The mh7 symptoms/episode began/occurred 10 week(s) ago. Modifying factors: The symptoms are alleviated by nothing. the symptoms are aggravated by movement, palpation/percussion. Associated signs and symptoms: Pertinent negatives: diarrhea, dizziness, dysuria, fever, urinary frequency, headache, hematuria, nausea, pain radiating to the lower extremities, vomiting. Severity of pain: At its worst the pain was moderate 4 day(s) ago, in the emergency department the pain is unchanged. 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 kg Historical: - Allergies: 18:58 Latex, Natural Rubber; kg - Home Meds: 18:58 aspirin 325 mg Oral tab once daily [Active]; atorvastatin Oral [Active]; Glipizide Oral kg [Active]; Januvia 100 mg Oral tab 1 tab once daily [Active]; lisinopril Oral [Active]; metformin 500 mg Oral tab 2 tabs 2 times per day [Active]; metoprolol tartrate 25 mg Oral tab 1 tab once daily [Active]; Tresiba FlexTouch U-100 100 unit/mL (3 mL) subcutaneous inpn 10 units daily [Active]; - PMHx: 18:58 Diabetes - IDDM; High Cholesterol; Hypertension; neuropathy; kg - PSHx: 18:58 section; eye sx; kg - Immunization history:: Adult Immunizations up to date, Client reports receiving the 2nd dose of the Covid vaccine, Date received: September 19, 2020 [facility] Client reports receiving the 1st dose of the Covid vaccine, August 29, 2020 [facility]. - Social history:: Smoking status: Patient denies any tobacco usage or history of. ROS: 19:19 Constitutional: Negative for fever, chills, and weight loss, Eyes: Negative for injury, mh7 pain, redness, and discharge, ENT: Negative for injury, pain, and discharge, Neck: Negative for injury, pain, and swelling, Cardiovascular: Negative for chest pain, palpitations, and edema, Respiratory: Negative for shortness of breath, cough, wheezing, and pleuritic chest pain, Abdomen/GI: Negative for abdominal pain, nausea, vomiting, diarrhea, and constipation, : Negative for injury, bleeding, discharge, and swelling, MS/Extremity: Negative for injury and deformity, Skin: Negative for injury, rash, and discoloration, Neuro: Negative for headache, weakness, numbness, tingling, and seizure, Psych: Negative for depression, anxiety, suicide ideation, homicidal ideation, and hallucinations, Allergy/Immunology: Negative for hives, rash, and allergies, Endocrine: Negative for neck swelling, polydipsia, polyuria, polyphagia, and marked weight changes, Hematologic/Lymphatic: Negative for swollen nodes, abnormal bleeding, and unusual bruising. Exam: 19:19 Constitutional: This is a well developed, well nourished patient who is awake, alert, mh7 and in no acute distress. Head/Face: Normocephalic, atraumatic. Eyes: Pupils equal round and reactive to light, extra-ocular motions intact. Lids and lashes normal. Conjunctiva and sclera are non-icteric and not injected. Cornea within normal limits. Periorbital areas with no swelling, redness, or edema. Neck: Trachea midline, no thyromegaly or masses palpated, and no cervical lymphadenopathy. Supple, full range of motion without nuchal rigidity, or vertebral point tenderness. No Meningismus. Chest/axilla: Normal chest wall appearance and motion. Nontender with no deformity. No lesions are appreciated. Cardiovascular: Regular rate and rhythm with a normal S1 and S2. No gallops, murmurs, or rubs. Normal PMI, no JVD. No pulse deficits. Respiratory: Lungs have equal breath sounds bilaterally, clear to auscultation and percussion. No rales, rhonchi or wheezes noted. No increased work of breathing, no retractions or nasal flaring. Abdomen/GI: Soft, non-tender, with normal bowel sounds. No distension or tympany. No guarding or rebound. No evidence of tenderness throughout. 19:19 Skin: Warm, dry with normal turgor. Normal color with no rashes, no lesions, and no evidence of cellulitis. Neuro: Awake and alert, GCS 15, oriented to person, place, time, and situation. Cranial nerves II-XII grossly intact. Motor strength 5/5 in all extremities. Sensory grossly intact. Cerebellar exam normal. Normal gait. Psych: Awake, alert, with orientation to person, place and time. Behavior, mood, and affect are within normal limits. 19:19 Back: normal spinal alignment noted, CVA tenderness, that is moderate, is noted on the right, vertebral tenderness, is not appreciated, muscle spasm, is not present. Vital Signs: 18:55 BP 138 / 73; Pulse 97; Resp 20; Temp 97.5(TE); Pulse Ox 99% on R/A; Weight 104.33 kg kg (R); Height 5 ft. 7 in. (170.18 cm) (R); Pain 10/10; 19:12 BP 121 / 80; Pulse 92; Resp 18; Pulse Ox 98% on R/A; 3 05/01 00:48 BP 127 / 82; Pulse 81; Resp 18; Pulse Ox 99% on R/A; [facility] 04/30 18:55 Body Mass Index 36.02 (104.33 kg, 170.18 cm) kg MDM: 04/30 23:47 Differential diagnosis: nephrolithiasis, pyelonephritis, UTI, diverticulitis. Data [facility] reviewed: vital signs, nurses notes, lab test result(s), CBC, electrolytes, urinalysis, radiologic studies, CT scan. Data interpreted: Pulse oximetry: on room air is 98 %. Interpretation: normal. Counseling: I had a detailed discussion with the patient and/or guardian regarding: the historical points, exam findings, and any diagnostic results supporting the discharge/admit diagnosis, lab results, radiology results, the need for outpatient follow up, to return to the emergency department if symptoms worsen or persist or if there are any questions or concerns that arise at home. Response to treatment: the patient's symptoms have markedly improved after treatment. 23:48 Patient medically screened. [facility] 04/30 19:17 Order name: Basic Metabolic Panel; Complete Time: 20:26 [facility] 04/30 19:17 Order name: CBC with Diff; Complete Time: 19:59 [facility] 04/30 19:17 Order name: Hepatic Function; Complete Time: 20:26 [facility] 04/30 19:17 Order name: Lipase; Complete Time: 20:26 [facility] 04/30 22:56 Order name: Urine Dipstick-Ancillary; Complete Time: 23:00 EDMS 04/30 19:05 Order name: XRAY Chest (1 view); Complete Time: 21:12 kg 04/30 20:27 Order name: CT Stone Protocol; Complete Time: 21:12 [facility] 04/30 19:17 Order name: IV Saline Lock; Complete Time: 19:31 [facility] 04/30 19:17 Order name: Labs collected and sent; Complete Time: 19:31 [facility] 04/30 19:17 Order name: Urine Dipstick-Ancillary (obtain specimen); Complete Time: 22:59 [facility] Administered Medications: 19:33 Drug: morphine 4 mg Route: IVP; Site: right antecubital; kc4 23:23 Follow up: Response: No adverse reaction [facility] 19:33 Drug: Zofran (Ondansetron) 4 mg Route: IVP; Site: right antecubital; 4 23:23 Follow up: Response: No adverse reaction [facility] 19:33 Drug: NS 0.9% 1000 ml Route: IV; Rate: 1000 ml; Site: right antecubital; kc4 23:22 Drug: morphine 4 mg Route: IVP; Site: right antecubital; 3 05/01 00:48 Follow up: Response: No adverse reaction [facility] 04/30 23:23 Drug: Rocephin (cefTRIAXone) 1 grams Route: IV; Rate: per protocol; Site: right [facility] antecubital; 05/01 00:48 Follow up: Response: No adverse reaction; IV Status: Completed infusion [facility] Disposition Summary: 04/30/21 23:48 Discharge Ordered Location: Home [facility] Problem: an ongoing problem [facility] Symptoms: have improved [facility] Condition: Stable [facility] Diagnosis - Pyelonephritis [facility] Followup: [facility] - With: Private Physician - When: 1 - 2 days - Reason: Worsening of condition, Recheck today's complaints, Continuance of care, Re-evaluation by your physician Discharge Instructions: - Discharge Summary Sheet [facility] - Pyelonephritis, Adult, [id number] [facility] Forms: - Medication Reconciliation Form [facility] - Thank You Letter [facility] - Antibiotic Education [facility] - Prescription Opioid Use [facility] Prescriptions: - ondansetron 4 mg Oral tablet,disintegrating - place 1 tablet by TRANSLINGUAL route every 8 hours As needed; 10 tablet; [facility] Refills: 0, Product Selection Permitted - Cipro 500 mg Oral Tablet - take 1 tablet by ORAL route every 12 hours for 10 days; 20 tablet; Refills: 0, [facility] Product Selection Permitted - Tylenol-Codeine #3 300 mg-30 mg Oral - take 2 tablet by ORAL route every 6 hours As needed; 20 tablet; Refills: 0, [facility] Product Selection Permitted Signatures: Dispatcher [employer] Enrique Espino MD MD 7 Salud Beckwith RN RN kg Sharon Wiggins RN RN 3 [facility] New[facility]
--- NOTE | 2021-04-30 23:48 | ER ---
Nurse's Notes [facility] Name: Dang Sequeira Age: 55 yrs Sex: Female : 1965 Arrival Date: 04/30/2021 Time: 18:35 Bed 11 Private MD: Diagnosis: Pyelonephritis Presentation: 04/30 18:55 Chief complaint: Patient states: Right flank/ rib pain x 1.5 wks. Pt stated, " I was on kg the toilet and pulled myself up and I think I broke a rib or pulled something. It hurts to cough and take deep breaths.". Coronavirus screen: Vaccine status: Patient reports receiving the 2nd dose of the covid vaccine. Date September 19, 2020 [employer] Patient reports receiving the 1st dose of the Covid vaccine. Date August 29, 2020 [employer] At this time, the client does not indicate any symptoms associated with coronavirus-19. Ebola Screen: Patient negative for fever greater than or equal to 101.5 degrees Fahrenheit, and additional compatible Ebola Virus Disease symptoms Patient denies exposure to infectious person. Patient denies travel to an Ebola-affected area in the 21 days before illness onset. Initial Sepsis Screen: Does the patient meet any 2 criteria? No. Patient's initial sepsis screen is negative. Does the patient have a suspected source of infection? No. Patient's initial sepsis screen is negative. Risk Assessment: Do you want to hurt yourself or someone else? Patient reports no desire to harm self or others. Onset of symptoms was April 20, 2021. 18:55 Method Of Arrival: Wheelchair kg 18:55 Acuity: MARTIN 4 kg Triage Assessment: 19:00 General: Appears in no apparent distress. Behavior is calm, cooperative, appropriate kg for age. Pain: Complains of pain in chest Pain currently is 10 out of 10 on a pain scale. at worst was 10 out of 10 on a pain scale. 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 kg Historical: - Allergies: 18:58 Latex, Natural Rubber; kg - Home Meds: 18:58 aspirin 325 mg Oral tab once daily [Active]; atorvastatin Oral [Active]; Glipizide Oral kg [Active]; Januvia 100 mg Oral tab 1 tab once daily [Active]; lisinopril Oral [Active]; metformin 500 mg Oral tab 2 tabs 2 times per day [Active]; metoprolol tartrate 25 mg Oral tab 1 tab once daily [Active]; Tresiba FlexTouch U-100 100 unit/mL (3 mL) subcutaneous inpn 10 units daily [Active]; - PMHx: 18:58 Diabetes - IDDM; High Cholesterol; Hypertension; neuropathy; kg - PSHx: 18:58 section; eye sx; kg - Immunization history:: Adult Immunizations up to date, Client reports receiving the 2nd dose of the Covid vaccine, Date received: September 19, 2020 [employer] Client reports receiving the 1st dose of the Covid vaccine, August 29, 2020 [employer]. - Social history:: Smoking status: Patient denies any tobacco usage or history of. Screenin:00 Abuse screen: Denies threats or abuse. Denies injuries from another. Nutritional kg screening: No deficits noted. Tuberculosis screening: No symptoms or risk factors identified. Fall Risk None identified. Assessment: 19:12 General: Appears in no apparent distress. Pain: Complains of pain in lumbar area Pain lh3 does not radiate. Pain currently is 10 out of 10 on a pain scale. Quality of pain is described as sharp, Pain began a week and half ago Is continuous, Alleviated by nothing. Neuro: Level of Consciousness is awake, alert, obeys commands. Musculoskeletal: Reports pain in back since A week and a half ago. Pain is 10 out of 10 on a pain scale. Vital Signs: 18:55 BP 138 / 73; Pulse 97; Resp 20; Temp 97.5(TE); Pulse Ox 99% on R/A; Weight 104.33 kg kg (R); Height 5 ft. 7 in. (170.18 cm) (R); Pain 10/10; 19:12 BP 121 / 80; Pulse 92; Resp 18; Pulse Ox 98% on R/A; lh3 05/01 00:48 BP 127 / 82; Pulse 81; Resp 18; Pulse Ox 99% on R/A; lh3 04/30 18:55 Body Mass Index 36.02 (104.33 kg, 170.18 cm) kg ED Course: 04/30 18:35 Patient arrived in ED. as 18:58 Triage completed. kg 19:00 Patient has correct armband on for positive identification. kg 19:00 No provider procedures requiring assistance completed. kg 19:05 Enrique Brothers MD is Attending Physician. [facility] 19:12 Sharon Wiggins, RN is Primary Nurse. 3 19:12 Door closed. Noise minimized. Verbal reassurance given. lh3 19:31 Basic Metabolic Panel Sent. lh3 19:31 CBC with Diff Sent. lh3 19:31 Hepatic Function Sent. lh3 19:31 Lipase Sent. lh3 20:28 XRAY Chest (1 view) In Process Unspecified. EDMS 21:00 CT Stone Protocol In Process Unspecified. EDMS 05/01 00:49 Arm band placed on left wrist. lh3 00:49 IV discontinued, bleeding controlled. 3 Administered Medications: 04/30 19:33 Drug: morphine 4 mg Route: IVP; Site: right antecubital; 4 23:23 Follow up: Response: No adverse reaction 3 19:33 Drug: Zofran (Ondansetron) 4 mg Route: IVP; Site: right antecubital; 4 23:23 Follow up: Response: No adverse reaction 3 19:33 Drug: NS 0.9% 1000 ml Route: IV; Rate: 1000 ml; Site: right antecubital; kc4 23:22 Drug: morphine 4 mg Route: IVP; Site: right antecubital; 3 05/01 00:48 Follow up: Response: No adverse reaction [facility] 04/30 23:23 Drug: Rocephin (cefTRIAXone) 1 grams Route: IV; Rate: per protocol; Site: right 3 antecubital; 05/01 00:48 Follow up: Response: No adverse reaction; IV Status: Completed infusion [facility] Outcome: 04/30 23:48 Discharge ordered by . [facility] 05/01 00:48 Discharged to home via wheelchair. 3 Condition: stable Discharge instructions given to patient, Instructed on discharge instructions, no driving heavy equipment, medication usage, Demonstrated understanding of Prescriptions given X 3. 00:50 Patient left the ED. [facility] Signatures: Dispatcher [employer] Linda Maldonado Maurice, MD MD [facility] Salud Beckwith, NATHAN EVANS Sharon Wiggins RN RN [facility] Susan Newberry [email or web address]
[2021-05-01 03:39] VITALS: TEMP 97.5
[2021-05-01 03:42] VITALS: BP 127/82; O2SAT 99
== END 2021-05-01 00:50 | disposition home or self-care (01) ==
LOC: ER 18:33
DX: N12 Tubulo-interstitial nephritis, not specified as acute or chronic (principal); I10 Essential (primary) hypertension; E11.9 Type 2 diabetes mellitus without complications; Z79.4 Long term (current) use of insulin; Z79.82 Long term (current) use of aspirin
CPT/HCPCS: 96365; 85025; 80048; 36415; 80076; 81003; 83690; 76377; 74176; 71045; 96375; 99284; J0696; J7030; J2405

== ENCOUNTER 2021-07-24 09:55 | Observation (INO) | payer OTHER ==
--- OUTSIDE RECORDS SUMMARY | 2021-07-24 09:58 | XMS REPORT | Continuity of Care Document ---
:1965 Author Organization [facility] t Address [address] [place] [address] Care Team Providers Name Role Phone Priyanka MADERA, A Primary Care Physician ABA HARTLEY Attending Clinician Unavailable Shahid MADERA Attending Clinician DR MELIDA Attending Clinician Unavailable Priyanka MADERA, Hemalatha Attending Clinician ABA HARTLEY Admitting Clinician Unavailable DR MELIDA Admitting Clinician Unavailable Payers Payer Name Policy Type Policy Number Effective Date Expiration Date S ource Advance Directives Directive Decision Effective Termination Comments Source Date Date Healthcare Agents on N/A [facility] [place] [facility] FileNameRelationSelect Medical [facility] BeachwoodealthM[facility] Agent Medical RelationshipCommunicationDolores Branch [facility] Care [phone] (Mobile) Problems Condition Condition Condition Status Onset Resolution Last Treating Co mments Source Name Details Category Date Date Treatment Clinician Date Diabetic Diabetic Disease Active 2020-08 Unive rs ulcer of ulcer of 0-22 ity of left [place] leg leg 00 Medical Branch Obesity Obesity Disease Active 2020-08 Univers (BMI (BMI 0-22 ity of 30-39.9) 30-39.9) 00:00: [place] [address] Medical Branch Need for Need for Disease Active Unive rs influenza influenza 1-20 ity of vaccinatio vaccin[place] n n 00 [place] Uncontroll Uncontroll Disease Active 2019-08 U nivers ed ed 0-15 ity of insulin-tr insulin-tr 00:[place] eated type eated type 00 Me dical 2 diabetes 2 diabetes Br anch mellitus mellitus Asymptomat Asymptomat Disease Active 2019-08 U nivers ic ic 0-15 ity of hypertensi hypertensi 00:00[place] ve urgency ve urgency 00 Me dical Branch Anxiety Anxiety Disease Active 2019-08 Univers attack attack 0-15 ity of 00:00: [place] [facility] Pre-ulcera Pre-ulcera Disease Active U nivers tive tive 1-08 ity of calluses calluses 00:00: [place] [facility] Menopausal Menopausal Disease Active U nivers state state 05-03 ity of 00:00: [place] [facility] Post-menop Post-menop Disease Active U nivers ausal ausal 05-03 ity of bleeding bleeding 00:00: [place] [facility] Medicare Medicare Disease Active Unive rs annual annual 05-03 ity of wellness wellness 00:00: [place] visit, visit, 00 Medical subsequent subsequent Br anch 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 2-21 ity of mellitus mellitus 00:00: [place] with renal with renal 00 Me dical complicati complicati Br anch on on Right Right Disease Active 2014-08 Univers carotid carotid 2-21 ity of bruit bruit 00:00: [place] [facility] Vitamin D Vitamin D Disease Active Uni vers deficiency deficiency 6-11 it y of 00:00: [place] [facility] HLD HLD Disease Active Univers (hyperlipi (hyperlipi 01-14 it y of demia) demia) 00:00: [place] [facility] Metabolic Metabolic Disease Active Uni vers syndrome X syndrome X 01-14 it y of 00:00: [place] [facility] Essential Essential Disease Active Uni vers hypertensi hypertensi 6- it y of on on 00:00: Medical Branch Well woman Well woman Disease Active 2012-08 Overview : Univers exam exam 08-11 Formattin ity of 00:00: g of this note Medical might be Branch different from the original. 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 Body mass index is 41.57 kg/(m^2). Type 2 Type 2 Disease Active Overview: [facility] diabetes diabetes Formattin ity of mellitus mellitus g of this Grzegorz as without without note Medical complicati complicati might be Branch ons ons different from the original. since age 19, sees Dr. Yates Pain in Pain in Diagnosis [facility] right foot [facility] Closed Closed Diagnosis Active [facility] [...] ents Source Name Type Date Date Clinician LATEX Allergy Active Itching [facility] - 00:[facility]: Medical [address] [place] [address] Tomato Propensi Active Itching Univers ty to 3-14 ity of adverse 00:00: [place] reaction 00 [facility] Latex Propensi Active Itching 2017-08 Univers ty to 0-11 ity of adverse 00:00: [place] reaction 00 [facility] Insulin Drug Active Swelling Insulin [facility] Aspart Allergy 05-03 novalin N ity of 00:00: & R [address] Latex Adverse Active Info Not [facility] Reaction Available [facility] NO KNOWN Allergy Active [facility] ALLERGIE [facility] Social History Social Habit Start Date Stop Date Quantity Comments Source Alcohol intake 2021-06-23 2021-06-23 Current [facility] 00:00:00 00:00:00 non-drinker of [facility] alcohol Branch (finding) Sex [birth year] Universit y of 00:00:00 00:00:00 [facility] Smoking Status Start Date Stop Date Source Never smoker [facility] Medications Ordered Filled Start Stop Current Ordering Indication Dosage Frequency Signature Comments Components Source Medication Medication Date Date Medication? Clinician (SIG) Name Name hydrALAZINE 2020-08 Yes [id number] 50mg Take 1 Univers 50 mg 2-17 tablet by ity of tablet 00:00: mouth [place] 00 every 8 Medical (eight) Branch hours. hydrOXYzine 2020-08 Yes [id number] 50mg Take 1 Univers 50 mg 2-16 tablet by ity of tablet 00:00: mouth [place] 00 every 8 Medical (eight) Branch hours as needed for Itching or Anxiety. hydrOXYzine 2020-08 Yes [id number] 50mg Take 1 Univers 50 mg 2-16 tablet by ity of tablet 00:00: mouth [place] 00 every 8 Medical (eight) Branch hours as needed for Itching or Anxiety. insulin 2020-08 Yes [id number] 10U inject Univ ers degludec 0-22 10-20 ity of (TRESIBA 00:00: Units [place] FLEXTOUCH 00 under the Medic al U-100) 100 skin Branch unit/mL (3 daily. mL) InPn glipiZIDE 2020-08 Yes [id number] 10mg Take 1 Un smitha XL 10 mg 24 0-22 tablet by ity of hr tablet 00:00: mouth 2 (two) Medical times Branch daily. SITagliptin 2020-08 Yes [id number] 100mg Take 1 Univers (JANUVIA) 0-22 tablet by ity o f 100 mg 00:00: mouth [place] tablet 00 daily. Medical Branch repaglinide 2020-08 Yes [id number] TAKE 1 Univers 0.5 mg 0-22 TABLET BY ity of tablet 00:00: MOUTH [place] 00 BEFORE Medical MEALS IF Branch BLOOD SUGARS GREATER THAN 200 AFTER MEALS ( POST -P AMY ) TAKE 2 atorvastati 2020-08 Yes [id number] 10mg Take 1 Univers n 10 mg 0-22 tablet by ity of tablet 00:00: mouth at [place] 00 bedtime. Medical Branch insulin 2020-08 Yes [id number] 10U inject Univ ers degludec 0-22 10-20 ity of (TRESIBA 00:00: Units [place] FLEXTOUCH 00 under the Medic al U-100) 100 skin Branch unit/mL (3 daily. mL) InPn glipiZIDE 2020-08 Yes [id number] 10mg Take 1 Un smitha XL 10 mg 24 0-22 tablet by ity of hr tablet 00:00: mouth 2 [place] 00 (two) Medical times Branch daily. SITagliptin 2020-08 Yes [id number] 100mg Take 1 Univers (JANUVIA) 0-22 tablet by ity o f 100 mg 00:00: mouth [place] tablet 00 daily. Medical Branch repaglinide 2020-08 Yes [id number] TAKE 1 Univers 0.5 mg 0-22 TABLET BY ity of tablet 00:00: MOUTH [place] 00 BEFORE Medical MEALS IF Branch BLOOD SUGARS GREATER THAN 200 AFTER MEALS ( POST -P AMY ) TAKE 2 atorvastati 2020-08 Yes [id number] 10mg Take 1 Univers n 10 mg 0-22 tablet by ity of tablet 00:00: mouth at [place] 00 bedtime. Medical Branch LISINOPRIL Yes TAKE ONE Uni vers 20 mg 7-14 TABLET BY ity of tablet 00:00: MOUTH [place] 00 TWICE A Medical DAY Branch LISINOPRIL Yes TAKE ONE Uni vers 20 mg 7-14 TABLET BY ity of tablet 00:00: MOUTH [place] 00 TWICE A Medical DAY Branch metformin Yes [id number] TAKE TWO Univers ER 500 mg 6-28 TABLETS BY ity of 24 hr 00:00: MOUTH [place] tablet 00 EVERY Medical MORNING , Branch TAKE ONE TABLET BY MOUTH DAILY AT NOON , AND TAKE TWO TABLETS BY MOUTH AT BEDTIME metformin Yes [id number] TAKE TWO Univers ER 500 mg 6-28 TABLETS BY ity of 24 hr 00:00: MOUTH [place] tablet 00 EVERY Medical MORNING , Branch TAKE ONE TABLET BY MOUTH DAILY AT NOON , AND TAKE TWO TABLETS BY MOUTH AT BEDTIME metoprolol Yes [id number] 25mg Take 1 U nivers tartrate 25 4-21 tablet by ity of mg tablet 00:00: mouth 2 [place] 00 (two) Medical times Branch daily. triamterene Yes [id number] 1{capsu Take 1 Univers -hydrochlor 4-21 le} capsule by it y of othiazide 00:00: mouth [place] 37.5-25 mg 00 every Medical per capsule morning. Bran ch metoprolol Yes [id number] 25mg Take 1 U nivers tartrate 25 4-21 tablet by ity of mg tablet 00:00: mouth 2 [place] 00 (two) Medical times Branch daily. triamterene Yes [id number] 1{capsu Take 1 Univers -hydrochlor 4-21 le} capsule by it y of othiazide 00:00: mouth [place] 37.5-25 mg 00 every Medical per capsule morning. [facility] multivitami 2019- Yes 1{capsu Take 1 Cap Univers n capsule 2-21 le} by mouth ity of 15:43: daily. [address] Branch multivitami 2019- Yes 1{capsu Take 1 Cap Univers n capsule 2-21 le} by mouth ity of 15:43: daily. [place] [address] Medical Branch BIMATOPROST 2019-08 Yes 1[drp] Place 1 U nivers (LUMIGAN 2-21 Drop in ity of OPHTHALMIC) 15:43: each eye [place] 51 daily. Medical Branch BRIMONIDINE 2019-[address] in U nivers TARTRATE/TI 2-21 each eye 2 it y of MOLOL 15:43: (two) [place] (COMBIGAN 51 times Medical OPHTHALMIC) daily. Branch aspirin 325 2019-08 Yes 325mg Take 325 U nivers mg tablet 2-21 mg by ity of 15:43: mouth [place] 51 every 4 Medical (four) Branch hours as needed for Other. cyanocobala 2019-08 Yes 1000mg Take 1,000 Univers min, 2-21 mg by ity of vitamin 15:43: mouth. [place] [facility] Medical (VITAMIN Branch B-12 ORAL) BIMATOPROST 2019-08 Yes 1[drp] Place 1 U nivers (LUMIGAN 2-21 Drop in ity of OPHTHALMIC) 15:43: each eye [place] 51 daily. Medical Branch BRIMONIDINE 2019-[address] in U nivers TARTRATE/TI 2-21 each eye 2 it y of MOLOL 15:43: (two) [place] (COMBIGAN 51 times Medical OPHTHALMIC) daily. Branch aspirin 325 2019-08 Yes 325mg Take 325 U nivers mg tablet 2-21 mg by ity of 15:43: mouth [place] 51 every 4 Medical (four) Branch hours as needed for Other. cyanocobala 2019-08 Yes 1000mg Take 1,000 Univers min, 2-21 mg by ity of vitamin 15:43: mouth. [place] B Medical (VITAMIN Branch B-12 ORAL) hydrOXYzine 2019-08- No [id number] 50mg Take 1 Univers 50 mg 0-15 12-16 tablet by ity of tablet 00:00: 00:00 mouth [place] 00 :00 every 8 Medical (eight) Branch hours as needed for Itching or Anxiety. Insulin 2018-08 Yes [id number] Use as Univ ers [place], 0-04 directed. ity of Disposable, 00:00: E 11.21. [place] (EVER PEN 00 Once daily Medi koko NEEDLE) 32 Branch gauge x 5/32" Ndle Insulin 2018-08 Yes [id number] Use as Univ ers [place], 0-04 directed. ity of Disposable, 00:00: [place].21. [place] (EVER PEN 00 Once daily Medi koko NEEDLE) 32 Branch gauge x 5/32" Ndle Cholecalcif 0 Yes [id number] 5000U Take 1 Univers hallie, 8-20 tablet by ity of Vitamin D3, 00:00: mouth [place] (VITAMIN 00 daily. Medical D3) 5,000 Branch unit tablet turmeric 0 Yes [id number] 500mg Take 500 Univers root 8-20 mg by ity of extract 500 00:00: mouth [place] mg Cap 00 daily. Medical Branch Cholecalcif 0 Yes [id number] 5000U Take 1 Univers hallie, 8-20 tablet by ity of Vitamin D3, 00:00: mouth [place] (VITAMIN 00 daily. Medical D3) 5,000 Branch unit tablet turmeric 0 Yes [id number] 500mg Take 500 Univers root 8-20 mg by ity of extract 500 00:00: mouth [place] mg Cap 00 daily. Medical Branch Cinnamon 0 Yes [id number] 1000mg Take 1,000 Univers Bark 3-14 mg by ity of (CINNAMON) 00:00: [place] 2 [place] 500 mg Cap 00 (two) Medical times Branch daily. Cinnamon Yes [id number] 1000mg Take 1,000 Univers Bark 3-14 mg by ity of (CINNAMON) 00:00: mouth [place] 500 mg Cap 00 (two) Medical times Branch daily. MetFORMIN MetFORMIN Yes Bakari not [facility] HCl ER HCl ER [facility] defined [facility] Aspirin Aspirin Yes Bakari [address] [facility] Atorvastati Atorvastati Yes Bakari not [facility] Calcium n Calcium Torres defined [facility] Ashley Da Silvauvia Yes Bakari not [facility] defined [facility] Lisinopril Lisinopril Yes Bakari not [facility] GlipiZIDE GlipiZIDE Yes Bakari not [facility] ER ER Torres defined [facility] Immunizations Ordered Filled Immunization Date Status Comments Sour e Immunization Name Name PPD (TB) 2021-02-20 Completed University of 00:00:00 [facility] PPD (TB) 2021-02-20 Completed University of 00:00:00 [facility] SARS-COV-2 COVID-19 2020-09-19 Completed Unive rsity of PFIZER VACCINE 00:00:00 [facility] SARS-COV-2 COVID-19 2020-09-19 Completed Unive rsity of PFIZER VACCINE 00:00:00 [facility] SARS-COV-2 COVID-19 2020-08-29 Completed Unive rsity of PFIZER VACCINE 00:00:00 [facility] SARS-COV-2 COVID-19 2020-08-29 Completed Unive rsity of PFIZER VACCINE 00:00:00 [facility] Td 2009-06-11 Completed University of 00:00:00 [facility] Td 2009-06-11 Completed University of 00:00:00 [facility] Rubella 2007-11-09 Completed University of 00:00:00 [facility] Rubella 2007-11-09 Completed University of 00:00:00 [facility] Vital Signs Vital Name Observation Time Observation Value Comments Source HEIGHT 2021-01-26 09:34:00 170.2 cm WEIGHT 2021-01-26 09:34:00 120.657 kg HEIGHT 2021-01-26 09:34:00 170.2 cm WEIGHT 2021-01-26 09:34:00 120.657 kg Procedures This patient has no known procedures. Plan of Care Planned Activity Planned Date Details Comments Source Encounters Start End Encounter Admission Attending Care Care Encounter Source Date/Time Date/Time Type Type Clinicians Facility Department ID 2021-05-17 Outpatient CIRO HARTLEY [facility] [id number] 2021-07-23 2021-07-23 RADHA Arevalo [id number] Univers 00:00:00 00:00:00 Raymundo FRASER [id number] i ty [id number] [id number] [address] 2021-07-20 2021-07-20 Telephone [facility] [id number] Univers 00:00:00 00:00:00 Raymundo FRASER [id number] i ty [id number] [id number] [address] 2021-02-12 2021-02-12 Anna [facility] [id number] [place] 10:00:00 15:35:00 [facility] 2021-01-07 2021-01-[address] [facility] [id number] 00:00:00 00:00:00 Savana Fraser [id number] [place] [id number] Professio [id number] [address] 2021-01-06 2021-01-[address] [facility] [place] [id number] 00:00:00 00:00:00 Savana Fraser [id number] [place] [id number] Professio [id number] [address] 2020-12-25 2020-12-[address] [facility] [id number] 00:00:00 00:00:00 Savana Fraser [id number] [place] [id number] Professio [id number] [address] 2020-11-26 2020-11-26 Office [facility] [id number] 13:45:19 15:47:52 Visit Raymundo Fraser [id number] [place] [id number] Professio [id number] [facility] 044 [facility] 2018-03-06 2018-03-06 [facility] [id number] 10:30:00 10:30:00 [facility] Results Test Description Test Time Test Comments Results Result Comments Source ANAEROBIC CULTURE 2021-02-17 10:51:00 Test Item Value Reference Range Interpretation Comme nts Culture Observations (test code = COB1) NO ANAEROBES ISOLATED AT 5 DAYS. CULTURE HELD FOR 5 DAYS ANAEROBIC [id number] 10:51:00 Test Item Value Reference Range Interpretation Comments Culture Observations NO ANAEROBES ISOLATED (test code = COB1) AT 5 DAYS. CULTURE HELD FOR 5 DAYS WOUND/SKIN/ABS.&GRAMSTAIN [id number] 08:28:00 Test Item Value Reference Range Interpretation Comments Culture Observations NO GROWTH AFTER 3 (test code = COB1) DAYS Direct Exam (test code = FEW WHITE BLOOD CELLS DE1) SEEN Direct Exam (test code = NO ORGANISMS SEEN DE2) WOUND/SKIN/ABS.&GRAMSTAIN [id number] 08:27:00 Test Item Value Reference Range Interpretation Comments Culture Observations NO GROWTH AFTER 3 (test code = COB1) DAYS Direct Exam (test code = RARE WHITE BLOOD DE1) CELLS SEEN Direct Exam (test code = NO ORGANISMS SEEN DE2) GLUCOMETER GLUCOSE- LAB USE [id number] 14:08:00 Test Item Value Reference Range Interpretation Comments GLUCOMETER (test code = 188 mg/dL 70-100 H Mete r ID: GMG) [id number] tor: [id number] [address] STIAN GLUCOMETER GLUCOSE- LAB USE [id number] 12:11:00 Test Item Value Reference Range Interpretation Comments GLUCOMETER (test code = 254 mg/dL 70-100 H Mete r ID: GMG) [id number] tor: [address] SHEA GLUCOMETER GLUCOSE- LAB USE [id number] 11:10:00 Test Item Value Reference Range Interpretation Comments GLUCOMETER (test code = 329 mg/dL 70-100 H Mete r ID: GMG) [id number] tor: [id number] SUBI SEBA STIAN GLUCOMETER GLUCOSE- LAB USE [id number] 09:57:00 Test Item Value Reference Range Interpretation Comments GLUCOMETER (test code = 333 mg/dL 70-100 H Mete r ID: GMG) [id number] tor: [address] PT/[id number] 10:47:00 Test Item Value Reference Range Interpretation Comments PROTIME (BEAKER) (test 11.7 seconds 9.3-12.0 Final Information code = 759) (Auto Output) INR (BEAKER) (test 1.06 See_Comment Final Inf ormation code = 370) (Auto Output) [Automated mess age] The system Meuugame generated this result transmit duc reference range : <=5.90. The reference range was not used to interpret this result as normal/abnormal . PARTIAL THROMBOPLASTIN 27.5 seconds 23.0-35.0 Final Information TIME (BEAKER) (test (Auto Ou tput) code = 760) RECOMMENDED COUMADIN/WARFARIN INR THERAPY RANGESSTANDARD DOSE: 2.0 - 3.0 Includes: PROPHYLAXIS forvenous thrombosis, systemic embolization; TREATMENT for venous thrombosis and/or pulmonary embolus.HIGH RISK: Target INR is 2.5-3.5 for patients with mechanical heart valves.POCT-GLUCOSE [id number] 09:54:00 Test Item Value Reference Range Interpretation Comments POC-GLUCOSE METER 176 mg/dL 70-110 H : TESTED A T SLSL 1317 (BEAKER) (test code [address], = 1538) [facility] [phone]: Gear Hobber Operator/Techni horacio ID = [id number] for Sharyn Damian
[2021-07-24 10:47] LABS: Absolute Lymphocytes (CBC) 2.1 K/uL (0.7-4.9); Basophils % 0.5 % (0-1.3); Hematocrit 27.7 % (36.0-45.0); Lymphocytes % 26.5 % (15.3-44.8); MPV 7.7 fL (7.6-11.3); RBC Red Blood Cell Count 3.46 M/uL (3.86-4.86)
[2021-07-24 10:51] LABS: Protime INR 0.93
[2021-07-24 11:14] LABS: ALT/SGPT 14 U/L (12-78); AST/SGOT 14 U/L (15-37); Albumin 2.2 g/dL (3.4-5.0); Alkaline Phosphatase 140 U/L (45-117); BUN Blood Urea Nitrogen 26 mg/dL (7-18); Bicarbonate 25 mmol/L (21-32); Bilirubin Direct < 0.1 mg/dL (0-0.2); Bilirubin Total 0.2 mg/dL (0.2-1.0); Glucose Level 143 mg/dL (74-106); Magnesium 2.1 mg/dL (1.8-2.4); NT PRO-BNP 2887 pg/mL (<125); Potassium 4.1 mmol/L (3.5-5.1); Protein, Total 8.1 g/dL (6.4-8.2); Sodium Level 141 mmol/L (136-145); Troponin (Emerg Dept Use Only) < 0.02 ng/mL (0.0-0.045)
--- NOTE | 2021-07-24 11:30 | RAD REPORT ---
EXAM DESCRIPTION: RAD - Chest Single View - 07/24/2021 10:51 am CLINICAL HISTORY: DYSPNEA Chest pain. COMPARISON: Chest Single View dated 04/30/2021; Chest Single View dated 01/15/2021; Chest Single View dated 11/24/2017; Chest Single View dated 11/23/2017 FINDINGS: Portable technique limits examination quality. Mild bilateral pulmonary opacities are present likely representing pulmonary edema. The heart is mild ly enlarged in size. No displaced fractures. IMPRESSION: Mild CHF.
[2021-07-24 12:56] LABS: SARS-COV-2 RT PCR NEGATIVE (NEGATIVE)
[2021-07-24] MEDS ORDERED: FUROSEMIDE 20 MG/ 2ML VIAL ONE (13:05)
--- NOTE | 2021-07-24 13:05 | EDPHYS ---
Physician Documentation [facility] Name: Dang Sequeira Age: 56 yrs Sex: Female : 1965 Arrival Date: 07/24/2021 Time: 09:58 Bed 5 Private MD: ED Physician Enrique Hassan HPI: 07/24 12:57 This 56 yrs old Female presents to ER via Wheelchair with complaints of kb Breathing Difficulty. 12:57 The patient has shortness of breath at rest. Onset: The symptoms/episode began/occurred kb this morning. Duration: The symptoms are continuous. The patient's shortness of breath is aggravated by exertion, supine position, is alleviated by nothing. Associated signs and symptoms: The patient has no apparent associated signs or symptoms. Severity of symptoms: At their worst the symptoms were moderate in the emergency department the symptoms are unchanged. The patient has not experienced similar symptoms in the past. The patient has not recently seen a physician. Historical: - Allergies: 10:43 Latex, Natural Rubber; al4 - PMHx: 10:43 Diabetes - IDDM; High Cholesterol; Hypertension; neuropathy; al4 - Immunization history:: Adult Immunizations up to date, Client reports receiving the 2nd dose of the Covid vaccine, Flu vaccine is not up to date. - Social history:: Smoking status: Patient denies any tobacco usage or history of. ROS: 12:57 Constitutional: Negative for fever, chills, and weight loss. kb 12:57 Respiratory: Positive for dyspnea on exertion, orthopnea, shortness of breath. 12:57 All other systems are negative. Exam: 10:22 Constitutional: This is a well developed, well nourished patient who is awake, alert, kb and in no acute distress. Head/Face: Normocephalic, atraumatic. ENT: Moist Mucous membranes Cardiovascular: Regular rate and rhythm with a normal S1 and S2. No gallops, murmurs, or rubs. No pulse deficits. Respiratory: Respirations even and unlabored. No increased work of breathing. Talking in full sentences Skin: Warm, dry with normal turgor. Normal color. MS/ Extremity: Pulses equal, no cyanosis. Neurovascular intact. Full, normal range of motion. Neuro: Awake and alert, GCS 15, oriented to person, place, time, and situation. Moves all extremities. Normal gait. Psych: Awake, alert, with orientation to person, place and time. Behavior, mood, and affect are within normal limits. 10:22 ECG was reviewed by the Attending Physician. Vital Signs: 10:25 BP 193 / 79; Pulse 74; Resp 12; Temp 98.3; Pulse Ox 99% ; Weight 104.33 kg; Height 5 al4 ft. 7 in. (170.18 cm); Pain 0/10; 11:21 BP 179 / 79; Pulse 71; Resp 12; Pulse Ox 98% ; al4 12:30 BP 188 / 77; Pulse 70; Resp 16; Pulse Ox 98% ; al4 13:30 BP 211 / 94; Pulse 74; Resp 18; Pulse Ox 100% ; al4 14:00 BP 193 / 83; al4 14:30 BP 203 / 88; Pulse 72; Resp 12 S; Pulse Ox 100% on R/A; al4 15:00 BP 192 / 87; Pulse 80; Resp 18 S; Pulse Ox 99% on R/A; al4 16:00 BP 193 / 81; Pulse 75; Resp 19; Pulse Ox 100% ; al4 17:00 BP 186 / 79; Pulse 66; Resp 18; Pulse Ox 100% ; al4 18:00 BP 209 / 85; Pulse 69; Resp 14; Pulse Ox 100% ; al4 19:00 BP 153 / 61; Pulse 75; Resp 14 S; Pulse Ox 100% on R/A; al4 10:25 Body Mass Index 36.02 (104.33 kg, 170.18 cm) al4 MDM: 10:08 Patient medically screened. 12:57 Data reviewed: vital signs, nurses notes. Data interpreted: Pulse oximetry: on room air kb is 98 %. Interpretation: normal. Counseling: I had a detailed discussion with the patient and/or guardian regarding: the historical points, exam findings, and any diagnostic results supporting the discharge/admit diagnosis, lab results, radiology results, the need for further work-up and treatment in the hospital. 13:04 Physician consultation: Carmine Bauman was contacted at 13:04, regarding admission, to the telemetry unit. patient's condition, and will see patient in ED. 07/24 10:12 Order name: Basic Metabolic Panel; Complete Time: 11:23 07/24 10:12 Order name: CBC with Diff; Complete Time: 10:51 kb 07/24 10:12 Order name: LFT's; Complete Time: 11:23 kb 07/24 10:12 Order name: Magnesium; Complete Time: 11:23 kb 07/24 10:12 Order name: NT PRO-BNP; Complete Time: 11:23 kb 07/24 10:12 Order name: PT-INR; Complete Time: 10:51 kb 07/24 10:12 Order name: Troponin (emerg Dept Use Only); Complete Time: 11:23 kb 07/24 10:12 Order name: XRAY Chest (1 view); Complete Time: 11:32 kb 07/24 10:12 Order name: COVID-19/FLU A+B (Document "Date of Onset" if Symptomatic); Complete Time: kb 12:56 07/24 17:14 Order name: Glucose, Ancillary Testing; Complete Time: 17:19 EDMS 07/24 17:52 Order name: Troponin I EDMS 07/24 10:12 Order name: EKG; Complete Time: 10:12 kb 07/24 10:12 Order name: Cardiac monitoring; Complete Time: 10:17 kb 07/24 10:12 Order name: EKG - Nurse/Tech; Complete Time: 10:17 kb 07/24 10:12 Order name: IV Saline Lock; Complete Time: 17:27 kb 07/24 10:12 Order name: Labs collected and sent; Complete Time: 10:38 kb 07/24 10:12 Order name: O2 Per Protocol; Complete Time: 10:17 kb 07/24 10:12 Order name: O2 Sat Monitoring; Complete Time: 10:17 kb EC:22 Rate is 71 beats/min. Rhythm is regular. QRS [place] is Normal. FL interval is normal at kb 176 msec. QRS interval is normal at 90 msec. QT interval is normal at 422 msec. Administered Medications: 13:20 Drug: Lasix (furosemide) 20 mg Route: IVP; Site: right forearm; jg9 14:19 Follow up: Response: No adverse reaction jg9 14:10 Drug: Lisinopril 20 mg Route: PO; al4 15:10 Follow up: Response: No adverse reaction al4 14:10 Drug: Metoprolol 25 mg Route: PO; al4 15:10 Follow up: Response: No adverse reaction al4 Disposition Summary: 07/24/21 13:05 Hospitalization Ordered Hospitalization Status: Observation kb Provider: Carmine Bauman Condition: Stable kb Problem: new kb Symptoms: are unchanged kb Bed/Room Type: Standard kb Location: Telemetry/MedSurg (observation)(07/24/21 17:16) dw Room Assignment: 217(07/24/21 17:16) dw Diagnosis - Dyspnea kb - Acute pulmonary edema kb Forms: - Medication Reconciliation Form kb - SBAR form kb Signatures: Dispatcher [employer] EDMS Adeola Hartman, DAY CAMP UNIT LEADER-C DAY CAMP UNIT LEADER-Ckb Sue Mike, RN RN Savana Roberts Alexis al4 Grazyna Zamudio jg9 Corrections: (The following items were deleted from the chart) 16:37 13:05 Telemetry/MedSurg (observation) kb eb 16:37 13:05 kb eb 17:16 16:37 [facility] ER HOLD eb dw 17:16 16:37 ERHOLD- eb dw
--- NOTE | 2021-07-24 13:05 | ER ---
Nurse's Notes [facility] Name: Dang Sequeira Age: 56 yrs Sex: Female : 1965 Arrival Date: 07/24/2021 Time: 09:58 Bed 5 Private MD: Diagnosis: Dyspnea;Acute pulmonary edema Presentation: 07/24 10:25 Chief complaint: Patient states: "I am having shortness of breath that started today. I al4 woke up and noticed I wasn't able to breathe well." patient stated she has had SOB like this in the past in which she was seen at [facility]. Coronavirus screen: Vaccine status: Patient reports receiving the 2nd dose of the covid vaccine. difficulty breathing, shortness of breath. Ebola Screen: No symptoms or risks identified at this time. Initial Sepsis Screen: Does the patient meet any 2 criteria? No. Patient's initial sepsis screen is negative. Does the patient have a suspected source of infection? No. Patient's initial sepsis screen is negative. Risk Assessment: Do you want to hurt yourself or someone else? Patient reports no desire to harm self or others. Onset of symptoms was July 24, 2021. 10:25 Method Of Arrival: Wheelchair al4 10:25 Acuity: MARTIN 3 al4 Historical: - Allergies: 10:43 Latex, Natural Rubber; al4 - PMHx: 10:43 Diabetes - IDDM; High Cholesterol; Hypertension; neuropathy; al4 - Immunization history:: Adult Immunizations up to date, Client reports receiving the 2nd dose of the Covid vaccine, Flu vaccine is not up to date. - Social history:: Smoking status: Patient denies any tobacco usage or history of. Screenin:44 Abuse screen: Denies threats or abuse. Nutritional screening: No deficits noted. al4 Tuberculosis screening: No symptoms or risk factors identified. Fall Risk No fall in past 12 months (0 pts). No IV (0 pts). Ambulatory Aid- Crutches/Cane/Walker (15 pts). Gait- Impaired (20 pts.). Mental Status- Oriented to own ability (0 pts). Total Erickson Fall Scale indicates Low Risk Score (25-44 pts). Fall prevention measures have been instituted. Side Rails Up X 2 Placed close to Nursing Station Frequent Obs/Assesments occuring As available Patient and Family Educated on Fall Prevention Program and strategies. Assessment: 10:46 General: Appears in no apparent distress. comfortable, Behavior is calm, cooperative. al4 Pain: Denies pain. Neuro: Level of Consciousness is awake, alert, obeys commands, Oriented to person, place, time, situation. Cardiovascular: Heart tones present Capillary refill < 3 seconds Patient's skin is warm and dry. Rhythm is sinus rhythm. Respiratory: Reports shortness of breath at rest Airway is patent Respiratory effort is even, unlabored, Respiratory pattern is regular, symmetrical, Breath sounds are clear bilaterally. Onset: The symptoms/episode began/occurred today, the patient has mild shortness of breath. GI: No signs and/or symptoms were reported involving the gastrointestinal system. : No signs and/or symptoms were reported regarding the genitourinary system. EENT: No signs and/or symptoms were reported regarding the EENT system. Derm: Skin is intact, Skin is dry, Skin is normal, pt has a L foot diabetic ulcer connected to wound vac. Musculoskeletal: No signs and/or symptoms reported regarding the musculoskeletal system. 11:42 Reassessment: No changes from previously documented assessment. Patient and/or family al4 updated on plan of care and expected duration. Pain level reassessed. Patient is alert, oriented x 3, equal unlabored respirations, skin warm/dry/pink. 12:53 Reassessment: No changes from previously documented assessment. Patient and/or family al4 updated on plan of care and expected duration. Pain level reassessed. Patient is alert, oriented x 3, equal unlabored respirations, skin warm/dry/pink. 14:00 Reassessment: No changes from previously documented assessment. Patient and/or family al4 updated on plan of care and expected duration. Pain level reassessed. Patient is alert, oriented x 3, equal unlabored respirations, skin warm/dry/pink. 14:12 Reassessment: Provider notified of high blood pressure. verbal order given. medications al4 administered. 15:00 Reassessment: No changes from previously documented assessment. Patient and/or family al4 updated on plan of care and expected duration. Pain level reassessed. Patient is alert, oriented x 3, equal unlabored respirations, skin warm/dry/pink. 15:57 Reassessment: No changes from previously documented assessment. Patient and/or family al4 updated on plan of care and expected duration. Pain level reassessed. Patient is alert, oriented x 3, equal unlabored respirations, skin warm/dry/pink. Patient denies pain at this time. 17:00 Reassessment: No changes from previously documented assessment. Patient and/or family al4 updated on plan of care and expected duration. Pain level reassessed. Patient is alert, oriented x 3, equal unlabored respirations, skin warm/dry/pink. Patient denies pain at this time. 17:16 Reassessment: charting continued in [facility]. al4 18:10 Reassessment: Report called to NATHAN Li. al4 18:25 Reassessment: BP 209/85 \\T\\ 1800. PRN Hydralazine given at 1825. monitoring patient and al4 BP before sending patient to room 217. 19:10 Reassessment: Patients BP at 1900 153/61. Patient alert and oriented. Patient denies al4 pain. Patient understands plan of care. Patient is being transferred to room 217 by [place]. Vital Signs: 10:25 BP 193 / 79; Pulse 74; Resp 12; Temp 98.3; Pulse Ox 99% ; Weight 104.33 kg; Height 5 al4 ft. 7 in. (170.18 cm); Pain 0/10; 11:21 BP 179 / 79; Pulse 71; Resp 12; Pulse Ox 98% ; al4 12:30 BP 188 / 77; Pulse 70; Resp 16; Pulse Ox 98% ; al4 13:30 BP 211 / 94; Pulse 74; Resp 18; Pulse Ox 100% ; al4 14:00 BP 193 / 83; al4 14:30 BP 203 / 88; Pulse 72; Resp 12 S; Pulse Ox 100% on R/A; al4 15:00 BP 192 / 87; Pulse 80; Resp 18 S; Pulse Ox 99% on R/A; al4 16:00 BP 193 / 81; Pulse 75; Resp 19; Pulse Ox 100% ; al4 17:00 BP 186 / 79; Pulse 66; Resp 18; Pulse Ox 100% ; al4 18:00 BP 209 / 85; Pulse 69; Resp 14; Pulse Ox 100% ; al4 19:00 BP 153 / 61; Pulse 75; Resp 14 S; Pulse Ox 100% on R/A; al4 10:25 Body Mass Index 36.02 (104.33 kg, 170.18 cm) al4 ED Course: 09:58 Patient arrived in ED. mr 10:08 [facility] kb 10:08 Enrique Hassan MD is Attending Physician. kb 10:17 Patient has correct armband on for positive identification. Bed in low position. Call mh5 light in reach. Side rails up X 1. Warm blanket given. quality assurance monitor final on. Pulse ox on. NIBP on. 10:37 Matt Brown is Primary Nurse. al4 10:38 Missed attempt(s): 22 gauge in right forearm. Bleeding controlled, band aid applied, al4 catheter tip intact. Missed attempt(s): 22 gauge in left forearm. Bleeding controlled, band aid applied, catheter tip intact. 10:43 Triage completed. al4 10:51 XRAY Chest (1 view) In Process Unspecified. EDMS 10:59 Arm band placed on. jd3 13:05 Carmine Bauman is Hospitalizing Provider. kb 13:15 Inserted saline lock: 22 gauge in right forearm, using aseptic technique. jg9 14:17 700 urine output, yellow, clear, non-odorous. jg9 17:05 No provider procedures requiring assistance completed. Patient admitted, IV remains in al4 place. 17:42 Diet tray given. al4 19:16 Primary Nurse role handed off by Matt Brown tw5 19:16 Michelle Sandy is Primary Nurse. tw5 Administered Medications: 13:20 Drug: Lasix (furosemide) 20 mg Route: IVP; Site: right forearm; jg9 14:19 Follow up: Response: No adverse reaction jg9 14:10 Drug: Lisinopril 20 mg Route: PO; al4 15:10 Follow up: Response: No adverse reaction al4 14:10 Drug: Metoprolol 25 mg Route: PO; al4 15:10 Follow up: Response: No adverse reaction al4 Outcome: 13:05 Decision to Hospitalize by Provider. kb 17:06 Admitted to ER Hold. Please see [facility] for further documentation. al4 17:06 Condition: stable 17:06 Instructed on the need for admit. 19:18 Patient left the ED. tw5 Signatures: Dispatcher [employer] EDSD Adeola Hartman, GENERATION TECHNOLOGIST-C GENERATION TECHNOLOGIST-Ckb Jennifer Ruiz, Marisela 5 Fan Molina RN RN Michelle Merchant tw5 Matt Brown al4 Grazyna Zamudio jg9 Corrections: (The following items were deleted from the chart) 10:54 10:46 Respiratory: Reports shortness of breath at rest Airway is patent Respiratory al4 effort is even, unlabored, Respiratory pattern is regular, symmetrical, Breath sounds are clear bilaterally. al4 10:55 10:46 Respiratory: Reports shortness of breath at rest Airway is patent Respiratory al4 effort is even, unlabored, Respiratory pattern is regular, symmetrical, Breath sounds are clear bilaterally. the patient has mild shortness of breath al4 10:56 10:46 Respiratory: Reports shortness of breath at rest Airway is patent Respiratory al4 effort is even, unlabored, Respiratory pattern is regular, symmetrical, Breath sounds are clear bilaterally. Onset: The symptoms/episode began/occurred today, the patient has mild shortness of breath al4 15:23 15:00 BP 192 / 87; Pulse 80bpm; Resp 18bpm; Pulse Ox 99%; al4 al4 17:06 17:05 Admitted to Med/surg accompanied by tech, al4 al4 17:06 17:05 Admitted to Med/surg al4 al4 17:31 10:46 Derm: Skin is intact, Skin is dry, Skin is normal, pt has a diabetic ulcer al4 connected to wound vac. al4 17:35 10:25 Chief complaint: Patient states: "I am having shortness of breath that started al4 today. I woke up and noticed I wasn't able to breathe well." patient stated she has had this problem more than once in the past. al4 17:36 10:46 Respiratory: Reports shortness of breath at rest Airway is patent Respiratory al4 effort is even, unlabored, Respiratory pattern is regular, symmetrical, Breath sounds are clear bilaterally. Onset: The symptoms/episode began/occurred today, the patient has mild shortness of breath al4 19:10 19:05 Reassessment: BP 209/85 \\T\\ 1800. PRN Hydralazine given at 1825. monitoring patient al4 and BP before sending patient to room 217. al4
[2021-07-24] MEDS ORDERED: METOPROLOL TAR 25 MG TAB ONE (14:08)
[2021-07-24] MEDS ORDERED: lisinopriL 20 MG TAB ONE (14:09)
--- NOTE | 2021-07-24 14:35 | P.HP ---
Certification for Inpatient Patient admitted to: Observation With expected LOS: <2 Midnights Practitioner: I am a practitioner with admitting privileges, knowledge of patient current condition, hospital course, and medical plan of care. Services: Services provided to patient in accordance with Admission requirements found in Title 42 Section 412.3 of the Code of Federal Regulations Patient History Date of Service: 07/24/21 Reason for admission: Shortness of breath History of Present Illness: -year-old lady with a history of hypertension, diabetes mellitus type 2, chronic left lower extremity leg ulcer with wound VAC presented to the emergency department with a complaint of progressive shortness of breath, which became much worse today. Patient reports shortness of breath and coughing when she lays down to sleep at night. Patient reports significant shortness of breath in the shower today, she could not walk a few feet without being short of breath. She therefore presented to the emergency department with chest x-ray demonstrated mild CHF. Patient has chronic bilateral lower extremity edema. Her systolic blood pressure significantly high, in the 190s. EKG unremarkable. Initial troponin negative. Patient hospitalized for further management of new onset CHF. Allergies latex Allergy (Mild, Verified 11/25/17 00:37) Itching Home Medications: Glipizide [Glucotrol Xl] 0.5 mg PO BID 01/24/13 Atorvastatin Calcium [Lipitor*] 10 mg PO DAILY 07/13/17 lisinopriL [Lisinopril] 20 mg PO BID 07/13/17 Insulin Degludec [Tresiba] 10 units SQ DAILY 01/16/21 Metformin HCl 1,000 mg PO BID 01/16/21 Metoprolol Tartrate [Lopressor*] 25 mg PO BID 01/16/21 Multivitamin [Multiple Vitamins] 1 each PO DAILY 01/16/21 Sitagliptin Phosphate [Januvia] 50 mg PO DAILY 01/16/21 - Past Medical/Surgical History Diabetic: Yes -: Diabetes mellitus type 2 -: Hypertension -: Hyperlipidemia -: History of osteomyelitis -: Diabetic neuropathy -: x1 -: eye surgery 1 yr and 5yrs ago -: debridement of left heel 12/2020 Psychosocial/ Personal History: Patient lives at home with son - Family History Father -: Diabetes, Cancer Notes: bone cancer Mother -: Cancer Notes: cervical - Social History Alcohol use: No CD- Drugs: No Caffeine use: Yes Review of Systems Other: Patient denies any fever or chills. She denies any abdominal pain. Except as documented, all other systems reviewed and negative. Physical Examination - Physical Exam General: Alert, In no apparent distress, Oriented x3, Obese HEENT: Mucous membr. moist/pink Neck: Supple, JVD not distended Respiratory: Clear to auscultation bilaterally, Diminished Cardiovascular: Regular rate/rhythm, Normal S1 S2, Edema (Bilateral legs) Gastrointestinal: Soft and benign, Non-distended, No tenderness Musculoskeletal: Swelling (Bilateral legs, worse on the left), Erythema (Bilateral leg), Other Integumentary: Venous stasis ulcer, Other (Bilateral venous stasis dermatitis. Left heel ulcer with wound VAC applied.) Neurological: Normal speech, Normal strength at 5/5 x4 extr, Cranial nerves 3-12 intact Lymphatics: No axilla or inguinal lymphadenopathy - Studies Laboratory Data (last 24 hrs) 07/24/21 10:35: PT 10.7, INR 0.93 07/24/21 10:35: WBC 7.90, Hgb 9.1 L, Hct 27.7 L, Plt Count 348 07/24/21 10:35: Sodium 141, Potassium 4.1, BUN 26 H, Creatinine 1.94 H, Glucose 143 H, Magnesium 2.1, Total Bilirubin 0.2, AST 14 L, ALT 14, Alkaline Phosp hatase 140 H Assessment and Plan - Problems (Diagnosis) (1) New onset of congestive heart failure Current Visit: Yes Status: Acute (2) Malignant hypertension Current Visit: Yes Status: Acute (3) Venous stasis ulcer of lower extremity Current Visit: Yes Status: Acute (4) Morbid obesity with BMI of 40.0-44.9, adult Current Visit: No Status: Acute (5) Diabetes Onset Date: 11/24/17 Current Visit: No Status: Chronic Qualifiers: Diabetes mellitus type: type 2 Diabetes mellitus complication status: with circulatory complication Diabetes mellitus complication detail: with peripheral angiopathy with gangrene - Plan Place under observation. Trend troponin Start IV Lasix 40 mg twice daily Monitor intake and output. Echocardiogram. Monitor renal function on IV Lasix Keep bilateral lower extremities elevated in the supine and sitting position. Insulin sliding scale and Lantus insulin for glucose management. Continue wound VAC for left lower extremity chronic ulcer. - Advance Directives Does patient have a Living Will: No Does patient have a Durable POA for Healthcare: No
[2021-07-24] MEDS: INSULIN -REGULAR HUMAN 50 UNIT/0.5 ML ML SQ SCH ×2 (16:52→21:52)
[2021-07-24] MEDS ORDERED: ONDANSETRON 4 MG/2 ML VIAL IV PRN (16:52)
[2021-07-24] MEDS ORDERED: ACETAMINOPHEN 500 MG TAB PO PRN (16:52)
[2021-07-24] MEDS ORDERED: HYDRALAZINE HCL 20 MG/ML VIAL IV PRN (17:42)
[2021-07-24] MEDS ORDERED: HEPARIN 5000 UNIT/ML 1 ML VIAL ONE (18:17)
[2021-07-24] MEDS ORDERED: HYDRALAZINE HCL 20 MG/ML VIAL ONE (18:18)
[2021-07-24] MEDS ORDERED: FUROSEMIDE 40 MG/4 ML VIAL ONE (18:18)
[2021-07-24] MEDS: FUROSEMIDE 40 MG/4 ML VIAL IV SCH (18:25)
[2021-07-24] MEDS: HEPARIN 5000 UNIT/ML 1 ML VIAL SQ SCH (18:25)
[2021-07-24] MEDS: METOPROLOL TAR 50 MG TAB PO SCH (21:53)
[2021-07-25 00:29] VITALS: BMI 36.0
[2021-07-25] MEDS: HEPARIN 5000 UNIT/ML 1 ML VIAL SQ SCH ×2 (01:30→10:20)
[2021-07-25 05:59] LABS: Absolute Lymphocytes (CBC) 1.9 K/uL (0.7-4.9); Basophils % 1.2 % (0-1.3); Hematocrit 26.2 % (36.0-45.0); Lymphocytes % 25.3 % (15.3-44.8); RBC Red Blood Cell Count 3.27 M/uL (3.86-4.86)
[2021-07-25 06:12] LABS: Magnesium 1.8 mg/dL (1.8-2.4); Phosphorus 4.7 mg/dL (2.5-4.9); Potassium 3.7 mmol/L (3.5-5.1)
[2021-07-25] MEDS: INSULIN -REGULAR HUMAN 50 UNIT/0.5 ML ML SQ SCH ×2 (07:30→12:10)
[2021-07-25] MEDS ORDERED: POTASSIUM CL SA 10 MEQ TAB PO ONE (09:00)
[2021-07-25] MEDS ORDERED: ASPIRIN EC 81 MG TAB PO SCH (09:00)
[2021-07-25] MEDS ORDERED: MAGNESIUM SULFATE 1 gm IVPB 1 GM/100 ML BAG IV ONE (09:00)
[2021-07-25] MEDS ORDERED: METOPROLOL TAR 25 MG TAB PO ONE (10:09)
[2021-07-25] MEDS ORDERED: AMLODIPINE 10 MG TAB PO SCH (10:10)
[2021-07-25] MEDS: FUROSEMIDE 40 MG/4 ML VIAL IV SCH (10:20)
[2021-07-25] MEDS: METOPROLOL TAR 50 MG TAB PO SCH (10:20)
--- NOTE | 2021-07-25 10:25 | P.DS ---
Admission Date: 07/24/21 Discharge Date: 07/25/21 Disposition: ROUTINE DISCHARGE Discharge Condition: FAIR Reason for Admission: Shortness of breath - Problems (1) New onset of congestive heart failure Current Visit: Yes Status: Acute (2) Malignant hypertension Current Visit: Yes Status: Acute (3) Venous stasis ulcer of lower extremity Current Visit: Yes Status: Acute (4) Morbid obesity with BMI of 40.0-44.9, adult Current Visit: No Status: Acute (5) Diabetes Onset Date: 11/24/17 Current Visit: No Status: Chronic Qualifiers: Diabetes mellitus type: type 2 Diabetes mellitus complication status: with circulatory complication Diabetes mellitus complication detail: with peripheral angiopathy with gangrene Brief History of Present Illness: 56-year-old lady with a history of hypertension, diabetes mellitus type 2, chronic left lower extremity leg ulcer with wound VAC presented to the emergency department with a complaint of progressive shortness of breath, which became much worse today. Patient reports shortness of breath and coughing when she lays down to sleep at night. Patient reports significant shortness of breath in the shower today, she could not walk a few feet without being short of breath. She therefore presented to the emergency department with chest x-ray demonstrated mild CHF. Patient has chronic bilateral lower extremity edema. Her systolic blood pressure significantly high, in the 190s. EKG unremarkable. Initial troponin negative. Patient hospitalized for further management of new onset CHF. Hospital Course: Patient placed under observation on the medical floor and treated for CHF with IV Lasix. Her blood pressure was significantly elevated. He was treated with metoprolol 50 mg twice daily, also added amlodipine. Patient is on lisinopril which was held due to increasing serum creatinine to 1.9. Patient serum creatinine trended down to 1.6. Her shortness of breath resolved with diuresis. Troponin trended negative. Patient has clinically improved. She states she is wheelchair-bound. Patient is discharged to follow-up with cardiology as an outpatient. Echocardiogram is pending which cannot be done over the weekend. Patient will need blood pressure management as an outpatient. Vital Signs/Physical Exam: Temp Pulse Resp BP Pulse Ox 97.9 F 79 18 191/81 H 96 07/25/21 08:00 07/25/21 08:00 07/25/21 08:00 07/25/21 08:00 07/25/21 08:00 General: Alert, In no apparent distress, Oriented x3 HEENT: Mucous membr. moist/pink Neck: JVD not distended Respiratory: Clear to auscultation bilaterally, Normal air movement Cardiovascular: Regular rate/rhythm, Normal S1 S2, No murmurs, Edema (Bilateral lower extremities.) Gastrointestinal: Normal bowel sounds, Soft and benign, Non-distended, No tenderness Musculoskeletal: No swelling Integumentary: Other (Bilateral lower extremity venous stasis dermatitis) Neurological: Normal strength at 5/5 x4 extr Laboratory Data at Discharge: WBC 7.40 K/uL (4.3-10.9) 07/25/21 05:13 Hgb 8.4 g/dL (12.0-15.0) L 07/25/21 05:13 Hct 26.2 % (36.0-45.0) L 07/25/21 05:13 Plt Count 330 K/uL (152-406) 07/25/21 05:13 PT 10.7 SECONDS (9.5-12.5) 07/24/21 10:35 INR 0.93 07/24/21 10:35 Sodium 142 mmol/L (136-145) 07/25/21 05:13 Potassium 3.7 mmol/L (3.5-5.1) 07/25/21 05:13 BUN 28 mg/dL (7-18) H 07/25/21 05:13 Creatinine 1.67 mg/dL (0.55-1.3) H 07/25/21 05:13 Glucose 95 mg/dL (74-106) 07/25/21 05:13 Phosphorus 4.7 mg/dL (2.5-4.9) 07/25/21 05:13 Magnesium 1.8 mg/dL (1.8-2.4) 07/25/21 05:13 Total Bilirubin 0.2 mg/dL (0.2-1.0) 07/24/21 10:35 AST 14 U/L (15-37) L 07/24/21 10:35 ALT 14 U/L (12-78) 07/24/21 10:35 Alkaline Phosphatase 140 U/L (45-117) H 07/24/21 10:35 Troponin I < 0.02 ng/mL (0.0-0.045) 07/24/21 21:07 Home Medications: Glipizide [Glucotrol Xl] 0.5 mg PO BID 01/24/13 Insulin Degludec [Tresiba] 10 units SQ DAILY 01/16/21 Metformin HCl 1,000 mg PO BID 01/16/21 Multivitamin [Multiple Vitamins] 1 each PO DAILY 01/16/21 Amlodipine [Norvasc*] 10 mg PO DAILY #30 tab 07/25/21 Aspirin [Aspirin EC 325 MG] 325 mg PO DAILY 07/25/21 Cinnamon Bark [Cinnamon] 1,000 mg PO SEECOM 07/25/21 Furosemide [Lasix] 40 mg PO DAILY #30 tablet 07/25/21 Insulin Degludec [Tresiba] 20 unit SQ DAILY 07/25/21 Iron Polysaccharide Complex [Polysaccharide Iron] 150 mg PO DAILY #30 capsule 07/25/21 Metoprolol Tartrate [Lopressor*] 50 mg PO BID #60 tab 07/25/21 Repaglinide 0.5 mg PO SEECOM 07/25/21 Sitagliptin Phosphate [Januvia*] 100 mg PO DAILY 07/25/21 New Medications: Furosemide [Lasix] 40 mg PO DAILY #30 tablet Metoprolol Tartrate [Lopressor*] 50 mg PO BID #60 tab Amlodipine [Norvasc*] 10 mg PO DAILY #30 tab Iron Polysaccharide Complex [Polysaccharide Iron] 150 mg PO DAILY #30 capsule Diet: ADA Activity: Ad rené Followup: TYSON MEHTA [Primary Care Provider] - 1-2 Weeks Pj Montalvo MD [ACTIVE - CAN ADMIT] - 1 Week (New onset CHF, Need further work up including echo. Needs hypertension management.)
[2021-07-25 12:11] VITALS: BP 205/86
[2021-07-25 12:37] VITALS: TEMP 97
[2021-07-25 13:11] VITALS: O2SAT 97
--- NOTE | 2021-07-25 17:01 | EKG ---
Test Date: 2021-07-24 Test Time: 10:22:29 Clinical Coordinator: BAHMAN MEASUREMENT RESULTS: Intervals: Rate: 71 FL: 176 QRSD: 90 QT: 422 QTc: 458 [place]: P: 35 FL: 176 QRS: -12 T: 72 INTERPRETIVE STATEMENTS: Normal sinus rhythm Normal ECG Compared to ECG 01/15/2021 16:52:19 Prolonged QT interval no longer present Electronically Signed On 07-25-21 17:00:01 IT SECURITY CONSULTING DIRECTOR by Pj Montalvo
== END 2021-07-25 13:15 | disposition home or self-care (01) ==
LOC: ER 09:55 → ERHOLD 14:51 → 2ND 19:15
PROVIDERS: ADMIT Internal Medicine; ATTEND Internal Medicine
DX: I11.0 Hypertensive heart disease with heart failure (principal); I50.9 Heart failure, unspecified; I83.009 Varicose veins of unspecified lower extremity with ulcer of unspecified site; L97.919 Non-pressure chronic ulcer of unspecified part of right lower leg with unspecified severity; L97.929 Non-pressure chronic ulcer of unspecified part of left lower leg with unspecified severity; I87.2 Venous insufficiency (chronic) (peripheral); E66.01 Morbid (severe) obesity due to excess calories; Z68.36 Body mass index [BMI] 36.0-36.9, adult; E11.51 Type 2 diabetes mellitus with diabetic peripheral angiopathy without gangrene; Z20.822 Contact with and (suspected) exposure to COVID-19
CPT/HCPCS: 93005; 85025 ×2; 80048 ×2; 36415; 83735 ×2; 84100; 85610; 82947 ×4; 80076; 84484 ×3; 83880; 0240U; 71045; 96374; 99285; J0360; J1940 ×3; J1644 ×3; J3475; G0378 ×2

== ENCOUNTER 2021-11-09 19:25 | Inpatient (IN) | payer OTHER ==
--- OUTSIDE RECORDS SUMMARY | 2021-11-09 19:28 | XMS REPORT | Continuity of Care Document ---
:1965 Author Organization [facility] t Address [address] [place] [address] Care Team Providers Name Role Phone Hemalatha WAY Primary Care Physician Unavailable ABA HARTLEY Attending Clinician Unavailable Hemalatha WAY Attending Clinician Unavailable Priyanka MADERA, Hemalatha Attending Clinician DR MELIDA Attending Clinician Unavailable Shahid MADERA Attending Clinician ABA HARTLEY Admitting Clinician Unavailable DR MELIDA Admitting Clinician Unavailable Payers Payer Name Policy Type Policy Number Effective Date Expiration Date S ource Advance Directives Directive Decision Effective Termination Comments Source Date Date Healthcare Agents on N/A [facility] FileNameRelationThe [facility] Agent Medical RelationshipCommunicationDolores Branch [facility] [phone] (Mobile) Problems Condition Condition Condition Status Onset Resolution Last Treating Co mments Source Name Details Category Date Date Treatment Clinician Date Diabetic Diabetic Disease Active 2020-08 Unive rs ulcer of ulcer of 0-22 ity of left [place] leg leg 00 [facility] Obesity Obesity Disease Active 2020-08 Univers (BMI (BMI 0-22 ity of 30-39.9) 30-39.9) 00:00: [place] [address] Medical Branch Need for Need for Disease [...] Univers attack attack 0-15 ity of 00:00: [place] [facility] Pre-ulcera Pre-ulcera Disease Active U nivers tive tive 1-08 ity of calluses calluses 00:00: [place] [facility] Menopausal Menopausal Disease Active U nivers state state 05-03 ity of 00:00: [place] [facility] Post-menop Post-menop Disease Active U nivers ausal ausal 05-03 ity of bleeding bleeding 00:00: [place] [facility] Medicare Medicare Disease Active Unive rs annual annual 05-03 ity of wellness wellness 00:00: [place] visit, visit, 00 Medical subsequent subsequent Br anch 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 2-21 ity of mellitus mellitus 00:00: [place] with renal with renal 00 Me dical complicati complicati Br anch on on Right Right Disease Active 2014-08 Univers carotid carotid 2-21 ity of bruit bruit 00:00: [place] [facility] Vitamin D Vitamin D Disease Active Uni vers deficiency deficiency 6-11 it y of 00:00: [place] [facility] HLD HLD Disease Active Univers (hyperlipi (hyperlipi 01-14 it y of demia) demia) 00:00: [place] [facility] Metabolic Metabolic Disease Active Uni vers syndrome X syndrome X 6 it y of 00:00: [place] [facility] Essential Essential Disease Active Uni vers hypertensi hypertensi 6- it y of on on 00:00: [place] [facility] Class 2 Class 2 Disease Active 2012-08 Overview: Univ ers severe severe 1-04 Formattin ity of obesity obesity 00:00: g of this [place] due to due to 00 note Medical excess excess might be Branch calories calories different with with from the serious serious original. comorbidit comorbidit Body mass y and body y and body index is mass index mass index 41.57 (BMI) of (BMI) of kg/(m^2). 39.0 to 39.0 to 39.9 in 39.9 in adult adult Well woman Well woman Disease Active 2012-08 Overview : Univers exam exam 08-11 Formattin ity of 00:00: g of this [place] 00 note Medical might be Branch different from the original. 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 since age 19, sees Dr. Yates Pain in Pain in Diagnosis [facility] foot [facility] Closed Closed Diagnosis [...] [facility] - 00:[facility]: Medical [address] [place] [address] Tomato Propensi Active Itching Univers ty to 3-14 ity of adverse 00:00: [place] reaction 00 Medical s Branch TOMATO DRUG Active ITCHING Univers INGREDI 3-14 ity of 00:00: 00 Medical Branch Latex Propensi Active Itching 2017-08 Univers ty to 0-11 ity of adverse 00:00: [place] reaction 00 Medical s Branch LATEX DRUG Active ITCHING 2017-08 Univers INGREDI 0-11 ity of 00:00: [place] 00 Medical Branch Insulin Drug Active Swelling Insulin Univer s Aspart Allergy 05-03 novalin N ity of 00:00: & R 00 Medical Branch INSULIN DRUG Active Swelling Univers ASPART INGREDI 05-03 ity of 00:00: 00 Medical Branch Latex DA Active Unknown [facility] NO KNOWN Allergy Active [facility] Latex Adverse Active Info Not [facility] Reaction Available [facility] Social History Social Habit Start Date Stop Date Quantity Comments Source Exposure to Not sure [facility] SARS-CoV-2 [place] [facility] (event) Branch Alcohol intake 2021-09-02 2021-09-02 Current University of 00:00:00 00:00:00 non-drinker of [facility] alcohol Branch (finding) Sex [birth year] At [birth year] Universit y of 00:00:00 00:00:00 [facility] Smoking Status Start Date Stop Date Source Never smoker [facility] Branch Medications Ordered Filled Start Stop Current Ordering Indication Dosage Frequency Signature Comments Components Source Medication Medication Date Date Medication? Clinician (SIG) Name Name metoprolol Yes [id number] 50mg Take 1 U nivers succinate 2-18 tablet by ity o f XL 50 mg 24 00:00: mouth [place] hr tablet 00 daily. Medical Branch BIMATOPROST Yes 1[drp] Place 1 U nivers (LUMIGAN 1-26 Drop in ity of OPHTHALMIC) 11:06: each eye [place] 26 daily. Medical Branch BRIMONIDINE Yes Place in U nivers TARTRATE/TI 1-26 each eye 2 it y of MOLOL 11:06: (two) [place] (COMBIGAN 26 times Medical OPHTHALMIC) daily. Branch multivitami Yes 1{capsu Take 1 Cap Univers n capsule 1-26 le} by mouth ity of 11:06: daily. [address] Branch cyanocobala Yes 1000mg Take 1,000 Univers min, 1-26 mg by ity of vitamin 11:06: mouth. [place] B-12, Medical (VITAMIN Branch B-12 ORAL) triamterene Yes [id number] 1{capsu Take 1 Univers -hydrochlor 1-26 le} capsule by it y of othiazide 00:00: mouth [place] 37.5-25 mg 00 every Medical per capsule morning. Bran ch Cholecalcif Yes [id number] 5000U Take 1 Univers hallie, 1-26 tablet by ity of Vitamin D3, 00:00: mouth [place] (VITAMIN 00 daily. Medical D3) 125 mcg Branch (5,000 unit) tablet metformin Yes [id number] TAKE TWO Univers ER 500 mg 1-26 TABLETS BY ity of 24 hr 00:00: MOUTH [place] tablet 00 EVERY Medical MORNING , Branch TAKE ONE TABLET BY MOUTH DAILY AT NOON , AND TAKE TWO TABLETS BY MOUTH AT BEDTIME aspirin 325 Yes [id number] 325mg Take 1 Univers mg tablet 1-26 tablet by ity o f 00:00: mouth [place] 00 daily with Medical breakfast. Branch furosemide Yes [id number] 40mg Take 1 Univers 40 mg 1-26 tablet by ity of tablet 00:00: mouth [place] 00 daily. Medical Branch lisinopriL Yes [id number] 20mg Take 1 Univers 20 mg 1-26 tablet by ity of tablet 00:00: mouth [place] 00 daily. Medical Branch metoprolol 2021- No [id number] 100mg Take 1 Univers tartrate 1-26 02-18 tablet by ity o f 100 mg 00:00: 00:00 mouth [place] tablet 00 :00 daily. Medical Branch hydrALAZINE 2020-08 Yes [id number] 50mg Take 1 Univers 50 mg 2-17 tablet by ity of tablet 00:00: mouth [place] 00 every 8 Medical (eight) Branch hours. hydrOXYzine 2020-08 Yes [id number] 50mg Take 1 Univers 50 mg 2-16 tablet by ity of tablet 00:00: mouth [place] 00 every 8 Medical (eight) Branch hours as needed for Itching or Anxiety. insulin 2020-08 Yes [id number] 10U inject Univ ers degludec 0-22 10-20 ity of (TRESIBA 00:00: Units [place] FLEXTOUCH 00 under the Medic al U-100) 100 skin Branch unit/mL (3 daily. mL) InPn glipiZIDE 2020-08 Yes [id number] 10mg Take 1 Un smitha XL 10 mg 24 0-22 tablet by ity of hr tablet 00:00: mouth 2 [place] 00 (two) Medical times Branch daily. SITagliptin 2020-08 Yes [id number] 100mg Take 1 Univers (JANUVIA) 0-22 tablet by ity o f 100 mg 00:00: mouth [place] tablet 00 daily. Medical Branch repaglinide 2020-08 Yes [id number] TAKE 1 Univers 0.5 mg 0-22 TABLET BY ity of tablet 00:00: MOUTH [place] 00 BEFORE Medical MEALS IF Branch BLOOD SUGARS GREATER THAN 200 AFTER MEALS ( POST -P AMY ) TAKE 2 atorvastati 2020-08 Yes [id number] 10mg Take 1 Univers n 10 mg 0-22 tablet by ity of tablet 00:00: mouth at [place] 00 bedtime. Medical Branch Insulin 2018-08 Yes [id number] Use as Univ ers [place], 0-04 directed. ity of Disposable, 00:00: E 11.21. [place] (EVER PEN 00 Once daily Medi [facility] NEEDLE) 32 Branch gauge x 5/32" Ndle turmeric Yes [id number] 500mg Take 500 Univers root 8-20 mg by ity of extract 500 00:00: mouth [place] mg Cap 00 daily. Medical Branch Cinnamon Yes [id number] 1000mg Take 1,000 Univers Bark 3-14 mg [...] [facility] Januvia Januvia Yes Bakari not [facility] Lisinopril Lisinopril Yes Bakari not [facility] GlipiZIDE GlipiZIDE Yes Bakari not [facility] Immunizations Ordered Filled Immunization Date Status Comments [facility] e Immunization Name Name PPD (TB) 2021-02-20 Completed [facility] 00:00:00 [facility] SARS-COV-2 COVID-19 2020-09-19 Completed Unive rsity of PFIZER VACCINE 00:00:00 [facility] SARS-COV-2 COVID-19 2020-08-29 Completed Unive rsity of PFIZER VACCINE 00:00:00 [facility] Td 2009-06-11 Completed University 00:00:00 [facility] Rubella 2007-11-09 Completed University 00:00:00 [facility] Vital Signs Vital Name Observation Time Observation Value Comments Source HEIGHT 2021-01-26 09:34:00 170.2 cm WEIGHT 2021-01-26 09:34:00 120.657 kg Height 2021-02-11 16:47:00 170.18 CM Weight 2021-02-11 16:47:00 114.3 KG HEIGHT 2021-01-26 09:34:00 170.2 cm WEIGHT 2021-01-26 09:34:00 120.657 kg Procedures Procedure Date / Time Performed Performing [facility] 2021-02-12 00:00:[facility] [facility] 5TH RAY OPEN Center DRAIN LT FT SUBQ TISS 2021-02-12 00:00:00 [facility] FASC OPN APPR Center REPL LT FT SKN NAUTO 2021-02-12 00:00:00 [facility] SB PRT THK EXT Center EXC LT FOOT SUBQ TISS [facility] FASC OPN APPR Center Encounters Start End Encounter Admission Attending Care Care Encounter Source Date/Time Date/Time Type Type Clinicians Facility Department ID 2021-05-[address] [facility] [id number] [facility] 01:40:06 [facility] 2021-12-10 2021-12-10 [id number] Univers 11:20:00 11:20:00 SAVANA [id number] ity [facility] 2021-09-22 2021-09-22 [facility] [id number] Univers 00:00:00 00:00:00 Savana FRASER [id number] itlisandra [facility] [id number] Ricki ricks PROFESSIO [id number] Me dical [address] 2021-02-12 2021-02-12 Outpatient Jakob [facility] [place] WWACU [id number] [place] 10:00:00 15:35:00 ALPASH [facility] 2021-01-07 2021-01-07 [facility] [id number] 00:00:00 00:00:00 Savana Fraser [id number] [place] [id number] Professio [id number] [address] 2021-01-06 2021-01-06 [facility] [id number] 00:00:00 00:00:00 Savana Fraser [id number] [place] [id number] Professio [phone] [address] 2020-12-25 2020-12-25 [facility] [id number] 00:00:00 00:00:00 Savana Fraser [id number] [place] [id number] Professio [id number] [address] 2020-11-26 2020-11-26 Office Shahid [facility] [id number] 13:45:19 15:47:52 Visit Raymundo Fraser [id number] [place] [id number] Professio [id number] [address] 2018-03-06 2018-03-06 [facility] [id number] 10:30:00 10:30:00 [facility] Clin[facility] Results Test Description Test Time Test Comments Results Result Comments Source ANAEROBIC CULTURE 2021-02-17 10:51:00 Test Item Value Reference Range Interpretation Comme nts Culture Observations (test code = COB1) NO ANAEROBES ISOLATED AT 5 DAYS. CULTURE HELD FOR 5 DAYS ANAEROBIC [id number] 10:51:00 Test Item Value Reference Range Interpretation Comments Culture Observations NO ANAEROBES ISOLATED (test code = COB1) AT 5 DAYS. CULTURE HELD FOR 5 DAYS WOUND/SKIN/ABS.&GRAMSTAIN [id number] 08:28:00 Test Item Value Reference Range Interpretation Comments Culture Observations NO GROWTH AFTER 3 (test code = COB1) DAYS Direct Exam (test code = FEW WHITE BLOOD CELLS DE1) SEEN Direct Exam (test code = NO ORGANISMS SEEN DE2) WOUND/SKIN/ABS.&GRAMSTAIN [id number] 08:27:00 Test Item Value Reference Range Interpretation Comments Culture Observations NO GROWTH AFTER 3 (test code = COB1) DAYS Direct Exam (test code = RARE WHITE BLOOD DE1) CELLS SEEN Direct Exam (test code = NO ORGANISMS SEEN DE2) GLUCOMETER GLUCOSE- LAB USE [id number] 14:08:00 Test Item Value Reference Range Interpretation Comments GLUCOMETER (test code = 188 mg/dL 70-100 H Mete r ID: GMG) [id number] tor: [id number] [address] STIAN GLUCOMETER GLUCOSE- LAB USE [id number] 12:11:00 Test Item Value Reference Range Interpretation Comments GLUCOMETER (test code = 254 mg/dL 70-100 H Mete r ID: GMG) [id number] tor: [address] GLUCOMETER GLUCOSE- LAB USE [id number] 11:10:00 Test Item Value Reference Range Interpretation Comments GLUCOMETER (test code = 329 mg/dL 70-100 H Mete r ID: GMG) [id number] tor: [id number] SU[address] SE[address] STIAN GLUCOMETER GLUCOSE- LAB USE [id number] 09:57:00 Test Item Value Reference Range Interpretation Comments GLUCOMETER (test code = 333 mg/dL 70-100 H Mete r ID: GMG) [id number] tor: [address] PT/[id number] 10:47:00 Test Item Value Reference Range Interpretation Comments PROTIME (BEAKER) (test 11.7 seconds 9.3-12.0 Final Information code = 759) (Auto Output) INR (BEAKER) (test 1.06 See_Comment Final Inf ormation code = 370) (Auto Output) [Automated mess age] The system [employer] generated this result transmit duc reference range [...] 2.5-3.5 for patients with mechanical heart valves.POCT-GLUCOSE [id number] 09:54:00 Test Item Value Reference Range Interpretation Comments POC-GLUCOSE METER 176 mg/dL 70-110 H : TESTED A T [facility]17 ([facility] (test code [address], = 1538) [facility] 77 [phone]: Irrigation Engineer/Techni horacio ID = [id number] for Sharyn Damian
[2021-11-09 22:42] LABS: Urine Blood Trace-lysed (Negative); Urine Glucose 1+ (Negative); Urine Protein 3+ (Negative); Urine Specific Gravity 1.025 (1.005-1.030); Urine pH 5.5 (5.0-7.0)
--- NOTE | 2021-11-09 22:57 | EDPHYS ---
Physician Documentation [facility] Name: Dang Sequeira Age: 56 yrs Sex: Female : 1965 Arrival Date: 11/09/2021 Time: 19:46 Bed 2 Private MD: Raoul Rogers HPI: 11/09 22:50 This 56 yrs old Female presents to ER via Wheelchair with complaints of Leg susie Pain. 22:50 The patient presents with decreased range of motion, pain, swelling, tenderness. The susie complaints affect the medial aspect of right thigh, medial aspect of right knee, medial aspect of right calf, right ankle, right quadriceps, right knee, right gudino and anterior aspect of right ankle. Context: The problem was sustained at an unknown site. Onset: The symptoms/episode began/occurred 4 day(s) ago. Modifying factors: The symptoms are alleviated by elevating leg, remaining still, the symptoms are aggravated by movement, bending knee. Associated signs and symptoms: Pertinent positives: fever, swelling, warmth, weakness. Treatment prior to arrival includes: no previous treatment. The patient has experienced similar episodes in the past, multiple times. Historical: - Allergies: 20:30 Latex, Natural Rubber; lp1 - Home Meds: 20:30 aspirin 325 mg Oral tab once daily [Active]; atorvastatin Oral [Active]; Glipizide Oral lp1 [Active]; Januvia 100 mg Oral tab 1 tab once daily [Active]; lisinopril Oral [Active]; metformin 500 mg Oral tab 2 tabs 2 times per day [Active]; metoprolol tartrate 25 mg Oral tab 1 tab once daily [Active]; Tresiba FlexTouch U-100 100 unit/mL (3 mL) subcutaneous inpn 10 units daily [Active]; Lasix Oral [Active]; - PMHx: 20:30 Diabetes - IDDM; High Cholesterol; Hypertension; neuropathy; lp1 - PSHx: 20:30 section; eye sx; lp1 - Immunization history:: Adult Immunizations up to date, Client reports receiving the 2nd dose of the Covid vaccine, . - Social history:: Smoking status: Patient denies any tobacco usage or history of. - Family history:: not pertinent. ROS: 22:50 Constitutional: Negative for fever, chills, and weight loss, Eyes: Negative for injury, susie pain, redness, and discharge, ENT: Negative for injury, pain, and discharge, Neck: Negative for injury, pain, and swelling, Cardiovascular: Negative for chest pain, palpitations, and edema, Respiratory: Negative for shortness of breath, cough, wheezing, and pleuritic chest pain, Abdomen/GI: Negative for abdominal pain, nausea, vomiting, diarrhea, and constipation, Back: Negative for injury and pain, : Negative for injury, bleeding, discharge, and swelling, Neuro: Negative for headache, weakness, numbness, tingling, and seizure, Psych: Negative for depression, anxiety, suicide ideation, homicidal ideation, and hallucinations, Allergy/Immunology: Negative for hives, rash, and allergies, Endocrine: Negative for neck swelling, polydipsia, polyuria, polyphagia, and marked weight changes, Hematologic/Lymphatic: Negative for swollen nodes, abnormal bleeding, and unusual bruising. 22:50 MS/extremity: Positive for decreased range of motion, erythema, pain, swelling, tenderness, warmth, of the left leg. 22:50 Skin: Positive for cellulitis, erythema, swelling, of the medial aspect of left thigh, medial aspect of left knee, medial aspect of left calf, left medial ankle, left quadriceps, left knee and left gudino, diffusely. Exam: 22:50 Constitutional: This is a well developed, well nourished patient who is awake, alert, susie and in no acute distress. Head/Face: Normocephalic, atraumatic. Eyes: Pupils equal round and reactive to light, extra-ocular motions intact. Lids and lashes normal. Conjunctiva and sclera are non-icteric and not injected. Cornea within normal limits. Periorbital areas with no swelling, redness, or edema. ENT: Nares patent. No nasal discharge, no septal abnormalities noted. Tympanic membranes are normal and external auditory canals are clear. Oropharynx with no redness, swelling, or masses, exudates, or evidence of obstruction, uvula midline. Mucous membranes moist. Neck: Trachea midline, no thyromegaly or masses palpated, and no cervical lymphadenopathy. Supple, full range of motion without nuchal rigidity, or vertebral point tenderness. No Meningismus. Chest/axilla: Normal chest wall appearance and motion. Nontender with no deformity. No lesions are appreciated. Cardiovascular: Regular rate and rhythm with a normal S1 and S2. No gallops, murmurs, or rubs. Normal PMI, no JVD. No pulse deficits. Respiratory: Lungs have equal breath sounds bilaterally, clear to auscultation and percussion. No rales, rhonchi or wheezes noted. No increased work of breathing, no retractions or nasal flaring. Abdomen/GI: Soft, non-tender, with normal bowel sounds. No distension or tympany. No guarding or rebound. No evidence of tenderness throughout. Back: No spinal tenderness. No costovertebral tenderness. Full range of motion. Female : Normal external genitalia. Neuro: Awake and alert, GCS 15, oriented to person, place, time, and situation. Cranial nerves II-XII grossly intact. Motor strength 5/5 in all extremities. Sensory grossly intact. Cerebellar exam normal. Normal gait. Psych: Awake, alert, with orientation to person, place and time. Behavior, mood, and affect are within normal limits. 22:50 Skin: cellulitis, that is mild, that is moderate, confluent, on the medial aspect of left thigh, medial aspect of left knee, medial aspect of left calf, left medial ankle and medial aspect of left foot. 23:50 ECG was reviewed by the Attending Physician. [facility] Vital Signs: 20:32 BP 120 / 59; Pulse 103; Resp 20; Temp 99.2(O); Pulse Ox 99% on R/A; Weight 104.33 kg lp1 (R); Height 5 ft. 7 in. (170.18 cm); Pain 0/10; 11/10 01:06 BP 104 / 60; Pulse 93; Resp 16; Temp 98.8(O); Pulse Ox 97% ; kd3 02:53 BP 148 / 92; Pulse 95; Resp 20; Pulse Ox 100% on R/A; lp1 03:27 BP 148 / 67; Pulse 89; Resp 18 S; Pulse Ox 99% on R/A; as6 11/09 20:32 Body Mass Index 36.02 (104.33 kg, 170.18 cm) lp1 MDM: 11/09 22:30 Patient medically screened. [facility] 22:53 Differential diagnosis: contusion, tendonitis. Data reviewed: vital signs, nurses [facility] notes, lab test result(s), EKG, radiologic studies, doppler, plain films. Data interpreted: monitoring engineer: rate is 103 beats/min, rhythm is regular, Pulse oximetry: on room air is 99 %. Test interpretation: by ED physician or midlevel provider: ECG, plain radiologic studies. Counseling: I had a detailed discussion with the patient and/or guardian regarding: the historical points, exam findings, and any diagnostic results supporting the discharge/admit diagnosis, lab results. 11/09 22:42 Order name: Urine Dipstick-Ancillary; Complete Time: 23:23 EDMN 11/09 22:43 Order name: Basic Metabolic Panel [facility] 11/09 22:43 Order name: CBC with Diff [facility] 11/09 22:43 Order name: LFT's [facility] 11/09 22:43 Order name: Magnesium [facility] 11/09 22:43 Order name: NT PRO-BNP [facility] 11/09 22:43 Order name: PT-INR; Complete Time: 00:00 [facility] 11/09 22:43 Order name: Troponin HS [facility] 11/09 22:43 Order name: Blood Culture Adult (2) [facility] 11/09 22:43 Order name: Urine Culture [facility] 11/09 22:43 Order name: Lactate; Complete Time: 00:00 [facility] 11/09 22:43 Order name: Procalcitonin [facility] 11/09 22:43 Order name: SARS-COV-2 RT PCR (Document "Date of Onset" if Symptomatic) [facility] 11/09 23:02 Order name: Urine Dipstick-Ancillary; Complete Time: 23:23 EDMN 11/09 22:43 Order name: XRAY Chest (1 view) [facility] 11/09 22:44 Order name: US Extremity Venous W Compression Fredo [facility] 11/09 23:51 Order name: Manual Differential [facility] 11/10 00:02 Order name: Type And Screen [facility] 11/10 00:46 Order name: Glucose, Ancillary Testing [facility] 11/10 05:37 Order name: Renal Panel EDMN 11/10 08:46 Order name: Glucose, Ancillary Testing [facility] 11/10 12:41 Order name: Glucose, Ancillary Testing [facility] 11/10 15:57 Order name: MRI [facility] 11/09 22:43 Order name: EKG; Complete Time: 22:44 [facility] 11/09 22:43 Order name: Cardiac monitoring; Complete Time: 23:36 [facility] 11/09 22:43 Order name: EKG - Nurse/Tech; Complete Time: 23:36 [facility] 11/09 22:43 Order name: IV Saline Lock; Complete Time: 23:36 [facility] 11/09 22:43 Order name: Labs collected and sent; Complete Time: 23:36 [facility] 11/09 22:43 Order name: O2 Per Protocol; Complete Time: 23:36 [facility] 11/09 22:43 Order name: O2 Sat Monitoring; Complete Time: 23:36 [facility] 11/09 22:43 Order name: Urine Dipstick-Ancillary (obtain specimen); Complete Time: 22:52 [facility] EC:50 Rate is 99 beats/min. DC interval is normal. QRS interval is normal. QT interval is susie normal. No Q waves. T waves are Normal. No ST changes noted. Clinical impression: NSR w/ Non-specific ST/T Changes and No evidence of ischemia. Interpreted by me. Reviewed by me. Administered Medications: 11/10 00:40 Drug: NS 0.9% 500 ml Route: IV; Rate: bolus; Site: right forearm; kd3 :43 Follow up: Rate change 500 ml; IV Status: Completed infusion kd3 03:27 Follow up: Rate change 500 ml; IV Status: Completed infusion kd3 00:40 Drug: Pepcid (famotidine) 20 mg Route: IVP; Site: right forearm; kd3 :44 Follow up: Response: No adverse reaction kd3 03:27 Follow up: Response: No adverse reaction kd3 00:41 Drug: Zosyn (piperacillin-tazobactam) 3.375 grams Route: IVPB; Infused Over: 60 mins; kd3 Site: right forearm; 44 Follow up: Rate change 100 ml; IV Status: Completed infusion kd3 00:41 Drug: Tylenol 650 mg Route: PO; kd3 01:44 Follow up: Response: No adverse reaction; Pain is decreased kd3 03:28 Follow up: Response: No adverse reaction kd3 01:43 Drug: vancoMYCIN 1.5 grams Route: IVPB; Rate: calculated rate; Site: right forearm; kd3 03:28 Follow up: Rate change 250 ml; IV Status: Completed infusion kd3 01:43 Drug: NS 0.9% 1000 ml Route: IV; Rate: 125 ml/hr; Site: right forearm; kd3 02:53 Drug: Lovenox (enoxaparin) 100 mg Route: Sub-Q; Site: left lower abdomen; lp1 03:27 Follow up: Response: No adverse reaction kd3 Disposition Summary: 11/09/21 22:56 Hospitalization Ordered Hospitalization Status: Inpatient Admission susie Provider: Carmine Bauman cha Condition: Stable susie Problem: new susie Symptoms: have improved susie Bed/Room Type: Standard susie Location: Telemetry/MedSurg (Inpatient)(11/10/21 13:51) bd Room Assignment: 219(11/10/21 13:51) bd Diagnosis - Cellulitis and acute lymphangitis of other parts of limb susie - Type 1 diabetes mellitus with hyperglycemia susie - Obesity, unspecified susie - Elevated white blood cell count susie - Pleural effusion in other conditions classified elsewhere susie - Acute embolism and thrombosis of other specified deep vein of right lower extremity susie Forms: - Medication Reconciliation Form susie - SBAR form susie Signatures: Dispatcher [employer] EDMS Jana Mcdaniel Corey, MD MD cha Pena, Laura, RN RN lp1 Radhika Fishman RN RN cg Doucette, Kyli, RN RN kd3 Corrections: (The following items were deleted from the chart) 11/09 23:09 22:56 Telemetry/MedSurg (Inpatient) susie cg 23:09 22:56 susie cg 11/10 13:51 11/09 23:09 [facility] ER HOLD cg bd 11/10 13:51 11/09 23:09 ERHOLD- cg bd
--- NOTE | 2021-11-09 22:57 | ER ---
Nurse's Notes [facility] Name: Dang Sequeira Age: 56 yrs Sex: Female : 1965 Arrival Date: 11/09/2021 Time: 19:46 Bed 2 Private MD: Diagnosis: Cellulitis and acute lymphangitis of other parts of limb;Type 1 diabetes mellitus with hyperglycemia;Obesity, unspecified;Elevated white blood cell count;Pleural effusion in other conditions classified elsewhere;Acute embolism and thrombosis of other specified deep vein of right lower extremity Presentation: 11/09 20:28 Chief complaint: Patient states: Increased pain and redness to left lower leg that lp1 began today, reports feeling generalized weakness, chills; Wound care last done on 11/07/21 by [facility] for diabetic ulcer to site. Coronavirus screen: At this time, the client does not indicate any symptoms associated with coronavirus-19. Ebola Screen: No symptoms or risks identified at this time. Risk Assessment: Do you want to hurt yourself or someone else? Patient reports no desire to harm self or others. Onset of symptoms was November 09, 2021. 20:28 Acuity: MARTIN 3 lp1 20:28 Method Of Arrival: Wheelchair lp1 20:32 Initial Sepsis Screen: Does the patient meet any 2 criteria? HR > 90 bpm. Does the lp1 patient have a suspected source of infection? No. Patient's initial sepsis screen is negative. Historical: - Allergies: 20:30 Latex, Natural Rubber; lp1 - Home Meds: 20:30 aspirin 325 mg Oral tab once daily [Active]; atorvastatin Oral [Active]; Glipizide Oral lp1 [Active]; Januvia 100 mg Oral tab 1 tab once daily [Active]; lisinopril Oral [Active]; metformin 500 mg Oral tab 2 tabs 2 times per day [Active]; metoprolol tartrate 25 mg Oral tab 1 tab once daily [Active]; Tresiba FlexTouch U-100 100 unit/mL (3 mL) subcutaneous inpn 10 units daily [Active]; Lasix Oral [Active]; - PMHx: 20:30 Diabetes - IDDM; High Cholesterol; Hypertension; neuropathy; lp1 - PSHx: 20:30 section; eye sx; lp1 - Immunization history:: Adult Immunizations up to date, Client reports receiving the 2nd dose of the Covid vaccine, . - Social history:: Smoking status: Patient denies any tobacco usage or history of. - Family history:: not pertinent. Screenin/05 03:26 Abuse screen: Denies threats or abuse. Denies injuries from another. Nutritional kd3 screening: No deficits noted. Tuberculosis screening: No symptoms or risk factors identified. Fall Risk Assessment: 11/09 23:45 General: Appears in no apparent distress. Behavior is calm, cooperative, appropriate kd3 for age. Pain: Complains of pain in left leg. 23:45 Neuro: Level of Consciousness is awake, alert, obeys commands, Oriented to person, kd3 place, time, situation. 11/10 02:53 Reassessment: Patient appears in no apparent distress at this time. Patient transferred lp1 to hospital bed for ER Hold status; assisted with repositioning, affected leg elevated. Vital Signs: 11/09 20:32 BP 120 / 59; Pulse 103; Resp 20; Temp 99.2(O); Pulse Ox 99% on R/A; Weight 104.33 kg lp1 (R); Height 5 ft. 7 in. (170.18 cm); Pain 0/10; 11/10 01:06 BP 104 / 60; Pulse 93; Resp 16; Temp 98.8(O); Pulse Ox 97% ; kd3 02:53 BP 148 / 92; Pulse 95; Resp 20; Pulse Ox 100% on R/A; lp1 03:27 BP 148 / 67; Pulse 89; Resp 18 S; Pulse Ox 99% on R/A; as6 11/09 20:32 Body Mass Index 36.02 (104.33 kg, 170.18 cm) lp1 ED Course: 11/09 19:46 Patient arrived in ED. ds1 20:30 Triage completed. lp1 20:30 Arm band placed on right wrist. lp1 22:30 Raoul Freire MD is Attending Physician. susie 22:44 Shai Escalante, NATHAN is Primary Nurse. as6 22:54 Carmine Bauman is Hospitalizing Provider. susie 23:36 XRAY Chest (1 view) In Process Unspecified. EDMS 23:36 SARS-COV-2 RT PCR (Document "Date of Onset" if Symptomatic) Sent. kd3 23:36 Lactate Sent. kd3 23:36 Procalcitonin Sent. kd3 23:36 Urine Culture Sent. kd3 04 00:16 US Extremity Venous W Compression Fredo In Process Unspecified. EDMS 03:26 Patient has correct armband on for positive identification. sr. director on. Pulse kd3 ox on. NIBP on. 11:33 No provider procedures requiring assistance completed. jg9 11:34 Patient admitted, IV remains in place. jg9 Administered Medications: 00:40 Drug: NS 0.9% 500 ml Route: IV; Rate: bolus; Site: right forearm; kd3 01:43 Follow up: Rate change 500 ml; IV Status: Completed infusion kd3 03:27 Follow up: Rate change 500 ml; IV Status: Completed infusion kd3 00:40 Drug: Pepcid (famotidine) 20 mg Route: IVP; Site: right forearm; kd3 01:44 Follow up: Response: No adverse reaction kd3 03:27 Follow up: Response: No adverse reaction kd3 00:41 Drug: Zosyn (piperacillin-tazobactam) 3.375 grams Route: IVPB; Infused Over: 60 mins; kd3 Site: right forearm; 01:44 Follow up: Rate change 100 ml; IV Status: Completed infusion kd3 00:41 Drug: Tylenol 650 mg Route: PO; kd3 01:44 Follow up: Response: No adverse reaction; Pain is decreased kd3 03:28 Follow up: Response: No adverse reaction kd3 01:43 Drug: vancoMYCIN 1.5 grams Route: IVPB; Rate: calculated rate; Site: right forearm; kd3 03:28 Follow up: Rate change 250 ml; IV Status: Completed infusion kd3 01:43 Drug: NS 0.9% 1000 ml Route: IV; Rate: 125 ml/hr; Site: right forearm; kd3 02:53 Drug: Lovenox (enoxaparin) 100 mg Route: Sub-Q; Site: left lower abdomen; lp1 03:27 Follow up: Response: No adverse reaction kd3 Outcome: 11/09 22:56 Decision to Hospitalize by Provider. [facility] 11/10 11:33 Admitted to ER Hold. Please see [facility] for further documentation. jg9 Condition: stable 16:07 Admitted to Med/surg accompanied by nurse, via wheelchair, room 219, Report called to juan Da Silva RN 16:08 Patient left the ED. jg9 Signatures: Dispatcher [employer] EDSC Raoul Freire MD MD cha Sanford, Demi ds1 Cherrie Marte RN RN lp1 Shai Escalante RN RN as6 Rosa Varghese RN RN kd3 Grazyna Zamudio RN RN jg9
[2021-11-09 23:02] LABS: Urine Blood Trace-lysed (Negative); Urine Glucose 2+ (Negative); Urine Protein 3+ (Negative); Urine pH 5.5 (5.0-7.0)
[2021-11-09 23:43] LABS: Absolute Lymphocytes (CBC) 1.1 K/uL (0.7-4.9); Hematocrit 27.8 % (36.0-45.0); Lymphocytes % 5.4 % (15.3-44.8); MPV 7.9 fL (7.6-11.3); RBC Red Blood Cell Count 3.58 M/uL (3.86-4.86)
[2021-11-09 23:44] LABS: Protime INR 1.09
[2021-11-09] MEDS ORDERED: NA CHLORIDE 0.9% 250 ML ONE (23:48)
[2021-11-09] MEDS ORDERED: NA CHLORIDE 0.9% 500 ML ONE (23:48)
[2021-11-09] MEDS ORDERED: ACETAMINOPHEN 325 MG TABLET ONE (23:48)
[2021-11-09] MEDS ORDERED: VANCOMYCIN 1 GM/VIAL ONE (23:48)
[2021-11-09] MEDS ORDERED: NA CHLORIDE 0.9% 1,000 ML ONE (23:49)
[2021-11-09] MEDS ORDERED: PIPERACIL/TAZO 3.375 GM VIAL IV ONE (23:49)
[2021-11-09] MEDS ORDERED: FAMOTIDINE 20 MG/2 ML VIAL IV ONE (23:49)
[2021-11-09] MEDS ORDERED: NA CHLORIDE 0.9% 100 ML IV ONE (23:49)
[2021-11-09 23:57] LABS: Albumin 2.5 g/dL (3.4-5.0); Bilirubin Direct 0.2 mg/dL (0-0.2); Bilirubin Total 0.4 mg/dL (0.2-1.0); Magnesium 2.3 mg/dL (1.8-2.4); Potassium 4.9 mmol/L (3.5-5.1); Protein, Total 8.9 g/dL (6.4-8.2); Troponin High Sensitivity 9.6 pg/mL (<58.9)
[2021-11-10 00:20] LABS: Blood Morphology Comment NOT SEEN (NOT SEEN); Platelet Estimate ADEQ
--- NOTE | 2021-11-10 01:34 | P.HP ---
Certification for Inpatient Patient admitted to: Inpatient With expected LOS: >2 Midnights Patient will require the following post-hospital care: Other (PICC line with IV antibiotics) Practitioner: I am a practitioner with admitting privileges, knowledge of patient current condition, hospital course, and medical plan of care. 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 She states she was starting to experience some generalized weakness and chills today. Her son noticed that her leg looked much redder than usual. She denies any pain in her leg. She sees Dr. Fuller frequently. She had last had wound care done 2 days ago. In the ED, labs were significant for white blood cell count of 19.7 with bands, creatinine 2.64 (baseline ~1.5), GFR 19, hemoglobin 9, BNP 2147, procalcitonin 1.2, lactic acid within normal limits. She was given Vanco and Zosyn. Blood cultures drawn. Extremity venous ultrasound results pending. Will admit patient for further evaluation and treatment of left lower extremity cellulitis and chronic diabetic ulcers. Allergies latex Allergy (Mild, Verified 07/25/21 00:05) Itching Home medications list reviewed: Yes Home Medications: Glipizide [Glucotrol Xl] 0.5 mg PO BID 01/24/13 Insulin Degludec [Tresiba] 10 units SQ DAILY 01/16/21 Metformin HCl 1,000 mg PO BID 01/16/21 Multivitamin [Multiple Vitamins] 1 each PO DAILY 01/16/21 Amlodipine [Norvasc*] 10 mg PO DAILY #30 tab 07/25/21 Aspirin [Aspirin EC 325 MG] 325 mg PO DAILY 07/25/21 Cinnamon Bark [Cinnamon] 1,000 mg PO SEECOM 07/25/21 Furosemide [Lasix] 40 mg PO DAILY #30 tablet 07/25/21 Insulin Degludec [Tresiba] 20 unit SQ DAILY 07/25/21 Iron Polysaccharide Complex [Polysaccharide Iron] 150 mg PO DAILY #30 capsule 07/25/21 Metoprolol Tartrate [Lopressor*] 50 mg PO BID #60 tab 07/25/21 Repaglinide 0.5 mg PO SEECOM 07/25/21 Sitagliptin Phosphate [Januvia*] 100 mg PO DAILY 07/25/21 - Past Medical/Surgical History Diabetic: Yes -: Diabetes mellitus type 2 -: Hypertension -: Hyperlipidemia -: History of osteomyelitis -: Diabetic neuropathy -: x1 -: eye surgery 1 yr and 5yrs ago -: debridement of left heel 12/2020 Psychosocial/ Personal History: Patient lives at home with son - Family History Father -: Diabetes, Cancer Notes: bone cancer Mother -: Cancer Notes: cervical - Social History Smoking Status: Never smoker Alcohol use: No CD- Drugs: No Caffeine use: No Place of Residence: Home Review of Systems Unremarkable Physical Examination - Physical Exam General: Alert, In no apparent distress, Oriented x3 HEENT: Atraumatic, PERRLA, Mucous membr. moist/pink, EOMI, Sclerae nonicteric Neck: Supple, 2+ carotid pulse no bruit, No LAD, Without JVD or thyroid abnormality Respiratory: Clear to auscultation bilaterally, Normal air movement Cardiovascular: Regular rate/rhythm, Normal S1 S2 Gastrointestinal: Normal bowel sounds, No tenderness Musculoskeletal: No tenderness Integumentary: Tenderness/swelling, Erythema, Warmth, Diabetic ulcer Neurological: Normal speech, Normal strength at 5/5 x4 extr, Normal tone, Normal affect - Studies Laboratory Data (last 24 hrs) 11/09/21 23:25: PT 12.0, INR 1.09 11/09/21 23:25: WBC 19.7 H, Hgb 9.0 L, Hct 27.8 L, Plt Count 355 11/09/21 23:25: Sodium 133 L, Potassium 4.9, BUN 54 H, Creatinine 2.64 H, Glucose 206 H, Magnesium 2.3 D, Total Bilirubin 0.4, AST 14 L, ALT 14, Alkaline Phosphatase 88 Assessment and Plan - Problems (Diagnosis) (1) Cellulitis of skin with lymphangitis Current Visit: Yes Status: Acute (2) Venous stasis ulcer of lower extremity Current Visit: Yes Status: Chronic Qualifiers: Laterality: left Qualified Code(s): I83.029 - Varicose veins of left lower extremity with ulcer of unspecified site; L97.929 - Non-pressure chronic ulcer of unspecified part of left lower leg with unspecified severity (3) Acute kidney injury Current Visit: Yes Status: Acute (4) Morbid obesity with BMI of 40.0-44.9, adult Current Visit: Yes Status: Chronic (5) Hyperlipidemia Current Visit: No Status: Acute Qualifiers: Hyperlipidemia type: mixed hyperlipidemia Qualified Code(s): E78.2 - Mixed hyperlipidemia (6) Hypertension Current Visit: No Status: Acute Qualifiers: Hypertension type: primary hypertension Qualified Code(s): I10 - Essential (primary) hypertension (7) Chronic kidney disease (CKD) Current Visit: Yes Status: Acute Qualifiers: Chronic kidney disease stage: stage 3 (moderate) Chronic kidney disease stage 3 subtype: stage 3b (GFR 30-44) Qualified Code(s): N18.32 - Chronic kidney disease, stage 3b - Plan -Patient was treated with Vanc and cefepime during her last admission per ID recommendations. We will continue and consult ID. -White blood cell count elevated at 19.7 and procalcitonin elevated at 1.2. Lactic acid within normal limits. Blood cultures drawn. Will trend white blood cell count and procalcitonin -Patient has had treatment for several years on this extremity. She sees Dr. Fuller She states her glucose is usually under control but it has been running high lately. Moderate sliding scale insulin with aCHS Accu-Cheks. -Patient has an acute kidney injury with a creatinine of 2.64. Her baseline appears around 1.5 with CKD stage III secondary to diabetes. Will obtain renal panel and consider nephrology consult. DVT PPx: Heparin Code: Full Discharge Plan: Home Plan to discharge in: Greater than 2 days - Advance Directives Does patient have a Living Will: No Does patient have a Durable POA for Healthcare: No - Code Status/Comfort Care Code Status Assessed: Yes (Full) Critical Care: No Time Spent Managing Pts Care (In Minutes): 70
[2021-11-10] MEDS ORDERED: ENOXAPARIN 100 MG/ML SYR SQ ONE (02:50)
[2021-11-10] MEDS: HEPARIN 5000 UNIT/ML 1 ML VIAL SQ SCH ×3 (03:43→18:05)
[2021-11-10] MEDS ORDERED: VANCOMYCIN 1 GM in NA CHLORIDE 0.9% 250 ML IVPB SCH (03:43)
[2021-11-10] MEDS ORDERED: ZOLPIDEM TARTRATE 5 MG TABLET PO PRN (03:43)
[2021-11-10] MEDS ORDERED: ONDANSETRON 4 MG/2 ML VIAL IV PRN (03:43)
[2021-11-10] MEDS ORDERED: ACETAMINOPHEN 500 MG TAB PO PRN (03:43)
[2021-11-10 04:02] VITALS: BMI 36.0
[2021-11-10 05:37] LABS: Albumin 2.1 g/dL (3.4-5.0); Phosphorus 4.5 mg/dL (2.5-4.9); Potassium 4.9 mmol/L (3.5-5.1)
[2021-11-10] MEDS: INSULIN -REGULAR HUMAN 50 UNIT/0.5 ML ML SQ SCH ×5 (07:30→21:34)
--- NOTE | 2021-11-10 08:29 | EKG ---
Test Date: 2021-11-09 Test Time: 23:35:11 [place]: CIRILO MEASUREMENT RESULTS: Intervals: Rate: 99 WV: 178 QRSD: 90 QT: 364 QTc: 467 [place]: P: 39 WV: 178 QRS: -18 T: 50 INTERPRETIVE STATEMENTS: Normal sinus rhythm Normal ECG Compared to ECG 07/24/2021 10:22:29 No significant changes Electronically Signed On 11-10-21 08:27:52 CDT by Pj Montalvo
[2021-11-10] MEDS ORDERED: INSULIN -REGULAR HUMAN 50 UNIT/0.5 ML ML ONE ×2 (08:40→12:37)
[2021-11-10] MEDS ORDERED: CEFEPIME 1 GM in NA CHLORIDE 0.9% 100 ML IV SCH (09:00)
[2021-11-10] MEDS: CEFEPIME 1 GM in NA CHLORIDE 0.9% 100 ML IV SCH (09:00)
[2021-11-10] MEDS ORDERED: HEPARIN 5000 UNIT/ML 1 ML VIAL ONE (10:30)
[2021-11-10] MEDS ORDERED: NA CHLORIDE 0.9% 100 ML IV ONE (10:31)
[2021-11-10] MEDS ORDERED: CEFEPIME 1 GM/VIAL ONE (10:31)
--- NOTE | 2021-11-10 11:08 | P.CNS ---
Date of Consult: 11/10/21 Chief Complaint: LLE cellulitis History of Present Illness: The patient is a 56-year-old female with a past medical history significant of diabetes type 2 uncontrolled currently on 5 hyperglycemic agents, hypertension, congestive heart failure, chronic bilateral lower extremity edema, and chronic left calcaneus wound who is well-known to our practice. She has seen Dr. Fuller at his outpatient wound care clinic for the past several years. She last saw him in clinic on 11/05/2021. Wound did not show signs of infection at that time, however patient states that last night she woke up at 4 AM with significant pain, erythema, and noticed a malodor to her chronic left ankle wound. ED work- up was significant for a WBC of 19.7 with left shift, hemoglobin 9.0, glucose 184, creatinine 2.53, and GFR of 20. Patient's pro-Andrade also elevated at 1.2. Patient has been afebrile, vital signs within normal limits. Patient empirically started on vancomycin and cefepime. Repeat MRI ordered to evaluate for chronic osteomyelitis of left calcaneus. Patient currently denies nausea/vomiting/diarrhea/shortness of breath/chest pain. Patient reports pain to left lower extremity. Allergies latex Allergy (Mild, Verified 07/25/21 00:05) Itching Home Medications: Glipizide [Glucotrol Xl] 0.5 mg PO BID 01/24/13 Insulin Degludec [Tresiba] 10 units SQ DAILY 01/16/21 Metformin HCl 1,000 mg PO BID 01/16/21 Multivitamin [Multiple Vitamins] 1 each PO DAILY 01/16/21 Amlodipine [Norvasc*] 10 mg PO DAILY #30 tab 07/25/21 Aspirin [Aspirin EC 325 MG] 325 mg PO DAILY 07/25/21 Cinnamon Bark [Cinnamon] 1,000 mg PO SEECOM 07/25/21 Furosemide [Lasix] 40 mg PO DAILY #30 tablet 07/25/21 Insulin Degludec [Tresiba] 20 unit SQ DAILY 07/25/21 Iron Polysaccharide Complex [Polysaccharide Iron] 150 mg PO DAILY #30 capsule 07/25/21 Metoprolol Tartrate [Lopressor*] 50 mg PO BID #60 tab 07/25/21 Repaglinide 0.5 mg PO SEECOM 07/25/21 Sitagliptin Phosphate [Januvia*] 100 mg PO DAILY 07/25/21 - Past Medical/Surgical History Diabetic: Yes -: Diabetes mellitus type 2 -: Hypertension -: Hyperlipidemia -: History of osteomyelitis -: Diabetic neuropathy -: x1 -: eye surgery 1 yr and 5yrs ago -: debridement of left heel 12/2020 Psychosocial/ Personal History: Patient lives at home with son - Family History Father Medical History: Diabetes, Cancer Notes: bone cancer Mother Medical History: Cancer Notes: cervical - Social History Smoking Status: Never smoker Alcohol use: No CD- Drugs: No Caffeine use: Yes Place of Residence: Home Review of Systems 10-point ROS is otherwise unremarkable Physical Examination Temp Pulse Resp BP Pulse Ox 98.8 F 94 H 17 146/65 H 98 11/10/21 04:00 11/10/21 08:00 11/10/21 08:00 11/10/21 08:00 11/10/21 08:00 General: Alert, In no apparent distress, Obese HEENT: Atraumatic, Normocephalic Neck: Supple Respiratory: Clear to auscultation bilaterally, Normal air movement Cardiovascular: Regular rate/rhythm Gastrointestinal: Normal bowel sounds, Soft and benign Integumentary: Other (Left lower extremity cellulitis, chronic left calcaneus diabetic foot ulcer. Wound is malodorous, wound edges are macerated. Base of wound shows majority 100% pink viable tissue.) Laboratory Data (last 24 hrs) 11/09/21 23:25: PT 12.0, INR 1.09 11/09/21 23:25: WBC 19.7 H, Hgb 9.0 L, Hct 27.8 L, Plt Count 355 11/09/21 23:25: Sodium 133 L, Potassium 4.9, BUN 54 H, Creatinine 2.64 H, Glucose 206 H, Magnesium 2.3 D, Total Bilirubin 0.4, AST 14 L, ALT 14, Alkaline Phosphatase 88 Conclusions/Impression: Antibiotics: Vancomycin: 4/4current Cefepime: 4/5current Assessment/plan Infected chronic left calcaneus diabetic ulcer with superimposed left lower extremity cellulitis Recommend continuing empiric vancomycin and cefepime at this time MRI ordered to rule out chronic/recurrent osteomyelitis. Of note patient was diagnosed with left calcaneus osteomyelitis on 01/15/21 and was treated with 6 weeks of IV vancomycin and cefepime. Continue current wound care: Clean with saline, apply Medihoney, calcium alginate, and wrap with Kerlix. Continue to keep leg elevated Wound with no purulent drainage or abscess pockets, as such no wound culture will be obtained. Diabetes Patient states that she is on 5 different agents to control her diabetes however she continues to have chronic hyperglycemia. Recommend endocrinology consult. -Strict glucose control needed for proper wound healing/infection control LARISA on CKD stage III Current creatinine clearance estimated to be 30.8 mL/min. -Cefepime renally dosed, continue to monitor vancomycin. Avoid nephrotoxic agents -Plan of care discussed with Dr. Fuller Thank you for consultation
--- NOTE | 2021-11-10 13:46 | RAD REPORT ---
EXAM DESCRIPTION: RAD - Chest Single View - 11/09/2021 11:34 pm CLINICAL HISTORY: The patient is 56 years old and is Female; COUGH TECHNIQUE: Frontal view of the chest. COMPARISON: No relevant prior studies available. FINDINGS: Lungs: Prominent interstitial markings bilaterally suggestive of interstitial edema. Pleural space: Blunting of the costophrenic angles which may indicate bilateral pleural effusions . No pneumothorax. Heart: Unremarkable. Mediastinum: Unremarkable. Bones/joints: Unremarkable. IMPRESSION: 1. Prominent interstitial markings bilaterally suggestive of interstitial edema. 2. Blunting of the costophrenic angles which may indicate bilateral pleural effusions. Electronically signed by: Steve Douglass MD 11/09/2021 11:47 PM CDT Due to temporary technical issues with the PACS/Fluency reporting system, reports are being signed by the in house radiologists without review as a courtesy to insure prompt reporting. The interpreting radiologist is fully responsible for the content of the report.
--- NOTE | 2021-11-10 15:16 | RAD REPORT ---
EXAM DESCRIPTION: US - Extrem Venous W Compress Fredo - 11/10/2021 2:06 am CLINICAL HISTORY: Pain;Swelling;Weakness COMPARISON: None. TECHNIQUE: Grayscale, color Doppler, and spectral Doppler imaging of the bilateral lower extremity v enous system. FINDINGS: Incomplete compressibility and echogenic thrombus of the mid right superficial femoral vei n. The remaining veins of the right lower extremity were compressible. Normal compressibility and flow identified in the left common femoral, superficial femoral, popliteal , and proximal calf veins. No echogenic thrombus identified. Bilateral subcutaneous edema. Respirator y phasicity in the common femoral veins. IMPRESSION: 1. Nonocclusive DVT identified in the mid right superficial femoral vein. Electronically signed by: Maximo Edwards 11/10/2021 1:10 AM CDT Due to temporary technical issues with the PACS/Fluency reporting system, reports are being signed by the in house radiologists without review as a courtesy to insure prompt reporting. The interpreting radiologist is fully responsible for the content of the report.
--- NOTE | 2021-11-10 15:56 | RAD REPORT ---
EXAM DESCRIPTION: MRI - Ankle Left Wo Cont - 11/10/2021 3:49 pm CLINICAL HISTORY: r/u osteo Open wound, pain and swelling COMPARISON: No comparisons FINDINGS: Significant flatfoot deformity is present. Large soft tissue wound is seen posterior heel. Partial-thickness tearing of the distal Achilles tendon is present. The posterior aspect of the calcaneus shows diminished T1 signal and elevated T2 signal likely repres enting osteomyelitis. No soft tissue mass or fluid collection. IMPRESSION: Moderately severe osteomyelitis involves the mid and posterior calcaneus.
[2021-11-10] MEDS ORDERED: HYDRALAZINE HCL 20 MG/ML VIAL IV PRN (17:17)
--- NOTE | 2021-11-10 19:55 | P.PN ---
Date of Service: 11/10/21 Patient seen and examined. No new complaint. She states her left leg swelling is better. MRI of the ankle demonstrating calcaneus osteomyelitis Diagnosis: Cellulitis. Nonhealing diabetic foot ulcer Osteomyelitis. Hypertension DM type II Plan: Infectious disease input appreciated. IV vancomycin and cefepime Patient seen by wound care team and recommendations noted. She will require 6 weeks of antibiotic therapy for osteomyelitis. Reconcile and resume home medications.
[2021-11-10] MEDS: REPAGLINIDE 0.5 MG TABLET PO SCH (20:00)
[2021-11-10] MEDS: METOPROLOL TAR 50 MG TAB PO SCH (21:33)
[2021-11-11] MEDS: HEPARIN 5000 UNIT/ML 1 ML VIAL SQ SCH ×3 (01:44→17:07)
[2021-11-11 05:33] LABS: Absolute Lymphocytes (CBC) 1.8 K/uL (0.7-4.9); Hematocrit 23.5 % (36.0-45.0); Lymphocytes % 14.5 % (15.3-44.8); MPV 7.7 fL (7.6-11.3); RBC Red Blood Cell Count 3.05 M/uL (3.86-4.86)
[2021-11-11 05:51] LABS: Urine Appearance CLOUDY (Clear); Urine Bilirubin NEGATIVE (Negative); Urine Blood NEGATIVE (Negative); Urine Glucose TRACE (Negative); Urine Protein 3+ (Negative); Urine Specific Gravity 1.015 (1.005-1.030); Urine Urobilinogen 0.2 mg/dL (0.2-1.0); Urine pH 5.5 (5.0-7.0)
[2021-11-11 05:54] LABS: Urine Color YELLOW (Yellow); Urine Microscopic Reflex ORDER UMIC
[2021-11-11 06:06] LABS: Urine Amorphous Sediment 1+ /HPF (NONE SEEN); Urine Bacteria 20-50 /HPF (<20); Urine RBC <5 /HPF (NONE SEEN); Urine Yeast PRESENT (NONE SEEN)
[2021-11-11 06:07] LABS: Urine Urothelial Cells <5 /HPF (NONE SEEN)
[2021-11-11 06:50] LABS: Albumin 1.8 g/dL (3.4-5.0); Bilirubin Total 0.3 mg/dL (0.2-1.0); Potassium 4.7 mmol/L (3.5-5.1); Protein, Total 7.1 g/dL (6.4-8.2)
[2021-11-11] MEDS: INSULIN -REGULAR HUMAN 50 UNIT/0.5 ML ML SQ SCH ×4 (07:30→21:44)
[2021-11-11] MEDS: REPAGLINIDE 0.5 MG TABLET PO SCH ×3 (07:30→16:30)
[2021-11-11] MEDS ORDERED: Insulin Degludec [Tresiba] 100 UNIT/ML Vial SQ PRN (09:00)
[2021-11-11] MEDS: GLIPIZIDE 10 MG PO SCH ×2 (09:00→21:00)
[2021-11-11] MEDS: SITAGLIPTIN PHOSPHATE 100 MG PO SCH (09:00)
[2021-11-11] MEDS: FUROSEMIDE 40 MG TABLET PO SCH (09:14)
[2021-11-11] MEDS: ASPIRIN EC 325 MG TABLET PO SCH (09:14)
[2021-11-11] MEDS: METOPROLOL TAR 50 MG TAB PO SCH ×2 (09:14→21:44)
[2021-11-11] MEDS: MULTIVITAMIN TAB PO SCH (09:14)
[2021-11-11] MEDS: AMLODIPINE 10 MG TAB PO SCH (09:15)
[2021-11-11] MEDS: FE SULF/FA/VIT B COMP & C TAB PO SCH (09:15)
[2021-11-11] MEDS: CEFEPIME 1 GM in NA CHLORIDE 0.9% 100 ML IV SCH (09:16)
[2021-11-11] MEDS: ACETIC ACID 0.25% IRRIG IRR SCH (09:41)
[2021-11-11] MEDS: MEDIHONEY 44 ML TOPICAL TUBE TOP SCH (09:41)
--- NOTE | 2021-11-11 11:18 | P.PN ---
Subjective Date of Service: 11/11/21 Chief Complaint: LLE cellulitis Patient seen and examined at bedside, doing well with no acute complaints. Review of Systems 10-point ROS is otherwise unremarkable Physical Examination - Vital Signs Temperature: 98.3 F Blood Pressure: 155/67 Pulse: 78 Respirations: 14 Pulse Ox (%): 96 - Studies Active Medications Acetaminophen (Acetaminophen 500 Mg Tab) 500 mg PO Q4HP PRN PRN Reason: TEMP > 100' F Acetic Acid (Acetic Acid 0.25% Irrig) 1,000 ml IRR DAILY [facility] Last Admin: 11/11/21 09:41 Dose: 1,000 ml Documented by: Amlodipine Besylate (Amlodipine 10 Mg Tab) 10 mg PO DAILY [facility] Last Admin: 11/11/21 09:15 Dose: 10 mg Documented by: Aspirin (Aspirin Ec 325 Mg Tablet) 325 mg PO DAILY [facility] Last Admin: 11/11/21 09:14 Dose: 325 mg Documented by: Emollient Gel (Medihoney 44 Ml Topical Tube) 1 appl TOP DAILY [facility] Last Admin: 11/11/21 09:41 Dose: 1 appl Documented by: Furosemide (Furosemide 40 Mg Tablet) 40 mg PO DAILY [facility] Last Admin: 11/11/21 09:14 Dose: 40 mg Documented by: Heparin Sodium (Porcine) (Heparin 5000 Unit/Ml 1 Ml Vial) 5,000 unit SQ Q8HR [facility] Last Admin: 11/11/21 09:14 Dose: 5,000 unit Documented by: Home Med (Glipizide [Glucotrol Xl]) 0.5 mg PO BID [facility] Home Med (Insulin Degludec [Tresiba]) 20 unit SQ DAILY PRN PRN Reason: SEE COMMENTS Home Med (Sitagliptin Phosphate [Januvia*]) 100 mg PO DAILY [facility] Last Admin: 11/11/21 09:00 Dose: Not Given Documented by: Hydralazine HCl (Hydralazine Hcl 20 Mg/Ml Vial) 10 mg IV Q6HP PRN PRN Reason: FOR SBP>160 OR DBP>100 [facility] Last Admin: 11/10/21 18:05 Dose: 10 mg Documented by: Vancomycin HCl 2 gm/ Sodium (Chloride) 500 mls @ 250 mls/hr IV Q36H [facility] Cefepime HCl 1 gm/ Sodium (Chloride) 100 mls @ 200 mls/hr IV DAILY [facility]; Protocol Last Admin: 11/11/21 09:16 Dose: 100 mls Documented by: Insulin Human Regular (Insulin -Regular Human 50 Unit/0.5 Ml Ml) 0 unit SQ ACHS [facility]; Protocol Last Admin: 11/11/21 07:30 Dose: Not Given Documented by: Metoprolol Tartrate (Metoprolol Tar 50 Mg Tab) 50 mg PO BID [facility] Last Admin: 11/11/21 09:14 Dose: 50 mg Documented by: Multivitamins/Iron (Fe Sulf/Fa/Vit B Comp & C Tab) 1 tab PO DAILY [facility] Last Admin: 11/11/21 09:15 Dose: 1 tab Documented by: Multivitamins/Minerals (Multivitamin Tab) 1 tab PO DAILY [facility] Last Admin: 11/11/21 09:14 Dose: 1 tab Documented by: Ondansetron HCl (Ondansetron 4 Mg/2 Ml Vial) 4 mg IV Q6HP PRN PRN Reason: NAUSEA / VOMITING Repaglinide (Repaglinide 0.5 Mg Tablet) 0.5 mg PO AC [facility] Last Admin: 11/11/21 07:30 Dose: Not Given Documented by: Sodium Chloride (Flush Normal Saline 10 Ml) 10 ml IV BID [facility] Last Admin: 11/11/21 09:00 Dose: 10 ml Documented by: Zolpidem Tartrate (Zolpidem Tartrate 5 Mg Tablet) 5 mg PO BEDTIME PRN PRN PRN Reason: INSOMNIA Assessment And Plan - Plan Physical Exam: General: Alert, In no apparent distress, Obese HEENT: Atraumatic, Normocephalic Neck: Supple Respiratory: Clear to auscultation bilaterally, Normal air movement Cardiovascular: Regular rate/rhythm Gastrointestinal: Normal bowel sounds, Soft and benign Integumentary: Other (Left lower extremity cellulitis, chronic left calcaneus diabetic foot ulcer. Wound is malodorous, wound edges are macerated. Base of wound shows majority 100% pink viable tissue.Left lower extremity wound: base shows mix of fibrin and slough tissue) 8 Conclusions/Impression: Antibiotics: Vancomycin: /4current Cefepime: 4/5current Assessment/plan Infected chronic left calcaneus diabetic ulcer with superimposed left lower extremity cellulitis -MRI performed on 11/10 demonstrated recurrent calcaneus osteomyelitis. Patient was first diagnosed with calcaneus osteomyelitis on 01/15/2021 and treated with 6 weeks of IV vancomycin and cefepime. Recommend retreatment with 6 weeks of IV vancomycin and cefepime. Recommend transfer to [facility] for long-term IV antibiotic treatment, wound care, and hyperbaric oxygen treatment for chronic left lower extremity calcaneus wound. Continue current wound care: Clean with saline, apply Medihoney, calcium alginate, and wrap with Kerlix. Continue to keep leg elevated Wound with no purulent drainage or abscess pockets, as such no wound culture will be obtained. Diabetes Patient states that she is on 5 different agents to control her diabetes however she continues to have chronic hyperglycemia. Recommend endocrinology consult. -Strict glucose control needed for proper wound healing/infection control LARISA on CKD stage III Current creatinine clearance estimated to be 30.8 mL/min. -Cefepime renally dosed, continue to monitor vancomycin. Avoid nephrotoxic agents -Plan of care discussed with Dr. Fuller Thank you for consultation
[2021-11-11] MEDS: VANCOMYCIN 2 GM in NA CHLORIDE 0.9% 500 ML IV SCH (12:45)
[2021-11-11] MEDS ORDERED: ACETIC ACID 0.25% IRRIG IRR ONE (12:45)
--- NOTE | 2021-11-11 13:25 | P.PN ---
Subjective Date of Service: 11/11/21 Chief Complaint: LLE cellulitis Has no new complaints today. Her left leg swelling has significantly improved. No fever. Physical Examination - Vital Signs Temperature: 97.1 F Blood Pressure: 172/72 Pulse: 72 Respirations: 20 Pulse Ox (%): 96 Assessment And Plan - Plan Physical Exam General: Alert, In no apparent distress, Oriented x3 HEENT: Mucous membr. moist/pink, Sclerae nonicteric Neck: Supple, No LAD, Without JVD. Respiratory: Clear to auscultation bilaterally, Normal air movement Cardiovascular: Regular rate/rhythm, Normal S1 S2 Gastrointestinal: Normal bowel sounds, No tenderness Musculoskeletal: No tenderness Integumentary: Tenderness/swelling, Erythema, Warmth, Diabetic ulcer- left gudino and heel. Wound looks clean. Neurological: Normal speech, Normal strength at 5/5 x4 extr, Normal affect Diagnosis Cellulitis left lower extremity Left calcaneal osteomyelitis. Diabetes mellitus type 2 Morbid obesity Sepsis-present on admission. Anemia Iron deficiency Plan: Continue IV vancomycin and cefepime. Infectious disease input appreciated. Wound care team recommendation appreciated. MRI of the left ankle demonstrated calcaneal osteomyelitis. Patient will need 6 weeks of IV antibiotics. Planning disposition to LTAC for wound care and IV antibiotics. Blood glucose readings relatively stable on Coreg regimen of insulin degludec, glipizide and Prandin. Monitor H&H and transfuse as needed for hemoglobin less than 7. Check iron profile. Continue on iron polysaccharide. Add vitamin C and zinc.
[2021-11-11] MEDS: ASCORBIC ACID 500 MG TABLET PO SCH (21:44)
[2021-11-12] MEDS: HEPARIN 5000 UNIT/ML 1 ML VIAL SQ SCH ×3 (00:40→17:14)
[2021-11-12 07:16] LABS: Absolute Lymphocytes (CBC) 1.3 K/uL (0.7-4.9); Hematocrit 24.6 % (36.0-45.0); Lymphocytes % 17.7 % (15.3-44.8); MPV 7.8 fL (7.6-11.3); RBC Red Blood Cell Count 3.12 M/uL (3.86-4.86)
[2021-11-12] MEDS: REPAGLINIDE 0.5 MG TABLET PO SCH (07:30)
[2021-11-12] MEDS: INSULIN -REGULAR HUMAN 50 UNIT/0.5 ML ML SQ SCH ×4 (07:30→21:10)
[2021-11-12] MEDS ORDERED: NA CHLORIDE 0.9% 100 ML ONE (08:32)
[2021-11-12] MEDS ORDERED: CEFEPIME 1 GM/VIAL ONE (08:38)
[2021-11-12 08:57] LABS: Albumin 1.9 g/dL (3.4-5.0); Bilirubin Total 0.4 mg/dL (0.2-1.0); Potassium 4.6 mmol/L (3.5-5.1); Protein, Total 7.4 g/dL (6.4-8.2)
[2021-11-12] MEDS: CEFEPIME 1 GM in NA CHLORIDE 0.9% 100 ML IV SCH (08:58)
[2021-11-12] MEDS: FUROSEMIDE 40 MG TABLET PO SCH (08:58)
[2021-11-12] MEDS: ASPIRIN EC 325 MG TABLET PO SCH (08:58)
[2021-11-12] MEDS: SITAGLIPTIN PHOSPHATE 100 MG PO SCH (09:00)
[2021-11-12] MEDS: ASCORBIC ACID 500 MG TABLET PO SCH ×2 (09:00→21:10)
[2021-11-12] MEDS: ZINC SULFATE 220 MG CAP PO SCH (09:00)
[2021-11-12] MEDS: AMLODIPINE 10 MG TAB PO SCH (09:00)
[2021-11-12] MEDS: METOPROLOL TAR 50 MG TAB PO SCH ×2 (09:00→21:11)
[2021-11-12] MEDS: MULTIVITAMIN TAB PO SCH (09:01)
[2021-11-12] MEDS: ACETIC ACID 0.25% IRRIG IRR SCH (09:01)
[2021-11-12] MEDS: FE SULF/FA/VIT B COMP & C TAB PO SCH (09:01)
[2021-11-12] MEDS: MEDIHONEY 44 ML TOPICAL TUBE TOP SCH (09:02)
--- NOTE | 2021-11-12 10:41 | P.PN ---
Subjective Date of Service: 11/12/21 Chief Complaint: LLE cellulitis Patient seen and examined at bedside, pending transfer to [facility]. Review of Systems 10-point ROS is otherwise unremarkable Physical Examination - Vital Signs Temperature: 97.5 F Blood Pressure: 135/63 Pulse: 74 Respirations: 16 Pulse Ox (%): 97 - Studies Laboratory Last Values WBC 19.7 K/uL (4.3-10.9) H 11/09/21 23:25 RBC 3.58 M/uL (3.86-4.86) L 11/09/21 23:25 Hgb 9.0 g/dL (12.0-15.0) L 11/09/21 23:25 Hct 27.8 % (36.0-45.0) L 11/09/21 23:25 MCV 77.6 fL (80-100) L 11/09/21 23:25 MCH 25.1 pg (27.0-35.0) L 11/09/21 23:25 MCHC 32.4 g/dL (32.0-36.0) 11/09/21 23:25 RDW 17.9 % (12.1-15.2) H 11/09/21 23:25 Plt Count 355 K/uL (152-406) 11/09/21 23:25 MPV 7.9 fL (7.6-11.3) 11/09/21 23:25 Neutrophils % 90.8 % (41.7-73.7) H 11/09/21 23:25 Lymphocytes % 5.4 % (15.3-44.8) L 11/09/21 23:25 Monocytes % 3.3 % (3.3-12.3) 11/09/21 23:25 Eosinophils % 0.3 % (0-4.4) 11/09/21 23:25 Basophils % 0.2 % (0-1.3) 11/09/21 23:25 Absolute Neutrophils 17.9 K/uL (1.8-8.0) H 11/09/21 23:25 Segmented Neutrophils 89 % (40-80) H 11/09/21 23:25 Band Neutrophils 4 % (0-1) H 11/09/21 23:25 Absolute Lymphocytes 1.1 K/uL (0.7-4.9) 11/09/21 23:25 Lymphocytes 5 % (15-42) L 11/09/21 23:25 Monocytes 2 % (0-10) 11/09/21 23:25 Absolute Monocytes 0.7 K/uL (0.1-1.3) 11/09/21 23:25 Absolute Eosinophils 0.1 K/uL (0-0.5) 11/09/21 23:25 Absolute Basophils 0.0 K/uL (0-0.5) 11/09/21 23:25 Platelet Estimate Adeq 11/09/21 23:25 Morphology Comment Not seen (NOT SEEN) 11/09/21 23:25 PT 12.0 SECONDS (9.5-12.5) 11/09/21 23:25 INR 1.09 11/09/21 23:25 Sodium 133 mmol/L (136-145) L 11/09/21 23:25 Potassium 4.9 mmol/L (3.5-5.1) 11/09/21 23:25 Chloride 104 mmol/L (98-107) 11/09/21 23:25 Carbon Dioxide 21 mmol/L (21-32) 11/09/21 23:25 BUN 54 mg/dL (7-18) H 11/09/21 23:25 Creatinine 2.64 mg/dL (0.55-1.3) H 11/09/21 23:25 Estimated GFR 19 mL/min (=/>90) L 11/09/21 23:25 Glucose 206 mg/dL (74-106) H 11/09/21 23:25 Lactic Acid 1.5 mmol/L (0.4-2.0) 11/09/21 23:25 Calcium 8.5 mg/dL (8.5-10.1) 11/09/21 23:25 Magnesium 2.3 mg/dL (1.8-2.4) D 11/09/21 23:25 Total Bilirubin 0.4 mg/dL (0.2-1.0) 11/09/21 23:25 Direct Bilirubin 0.2 mg/dL (0-0.2) 11/09/21 23:25 AST 14 U/L (15-37) L 11/09/21 23:25 ALT 14 U/L (12-78) 11/09/21 23:25 Alkaline Phosphatase 88 U/L (45-117) 11/09/21 23:25 Troponin I High Sens 9.6 pg/mL (<58.9) 11/09/21 23:25 NT-Pro-B Natriuret Pep 2147 pg/mL (<125) H 11/09/21 23:25 Serum Total Protein 8.9 g/dL (6.4-8.2) H 11/09/21 23:25 Albumin 2.5 g/dL (3.4-5.0) L 11/09/21 23:25 Globulin 6.4 g/dL (2.3-3.5) H 11/09/21 23:25 Albumin/Globulin Ratio 0.4 (1.1-1.8) L 11/09/21 23:25 Procalcitonin 1.20 ng/mL (<0.050) H 11/09/21 23:25 Urine pH 5.5 (5.0-7.0) 11/09/21 22:59 Ur Specific [place] 1.020 (1.005-1.030) 11/09/21 22:59 Glucose (UA)(Auto) 2+ (Negative) H 11/09/21 22:59 Urine Ketones Negative (Negative) 11/09/21 22:59 Urine Blood Trace-lysed (Negative) H 11/09/21 22:59 Urine Nitrite Negative (Negative) 11/09/21 22:59 Ur Leukocyte Esterase Negative (Negative) 11/09/21 22:59 Urine Total Protein 3+ (Negative) H 11/09/21 22:59 SARS-CoV-2 Rap RNA(RT-PCR) Negative (NEGATIVE) 11/09/21 23:25 Microbiology Data (last 24 hrs): 11/09/21 23:00 Clean Catch Urine [place] Count - Final BETWEEN 10,000 & 100,000 CFU/ML 11/09/21 23:00 Clean Catch Urine - Final MIXED JEAN MARIE. Assessment And Plan - Plan Physical Exam: General: Alert, In no apparent distress, Obese HEENT: Atraumatic, Normocephalic Neck: Supple Respiratory: Clear to auscultation bilaterally, Normal air movement Cardiovascular: Regular rate/rhythm Gastrointestinal: Normal bowel sounds, Soft and benign Integumentary: Other (Left lower extremity cellulitis, chronic left calcaneus diabetic foot ulcer. Wound is malodorous, wound edges are macerated. Base of wound shows majority 100% pink viable tissue.Left lower extremity wound: base shows mix of fibrin and slough tissue) 8 Conclusions/Impression: Antibiotics: Vancomycin: urrent Cefepime: 5current Assessment/plan Infected chronic left calcaneus diabetic ulcer with superimposed left lower extremity cellulitis -MRI performed on 11/10 demonstrated recurrent calcaneus osteomyelitis. Patient was first diagnosed with calcaneus osteomyelitis on 01/15/2021 and treated with 6 weeks of IV vancomycin and cefepime. Recommend retreatment with 6 weeks of IV vancomycin and cefepime. Recommend transfer to [facility] for long-term IV antibiotic treatment, wound care, and hyperbaric oxygen treatment for chronic left lower extremity calcaneus wound. Continue current wound care: Clean with saline, apply Medihoney, calcium alginate, and wrap with Kerlix. Continue to keep leg elevated Wound with no purulent drainage or abscess pockets, as such no wound culture will be obtained. -08/11 blood cultures growing coagulase-negative staph, repeat set ordered. Likely contamination. Diabetes Patient states that she is on 5 different agents to control her diabetes however she continues to have chronic hyperglycemia. Recommend endocrinology consult. -Strict glucose control needed for proper wound healing/infection control LARISA on CKD stage III Current creatinine clearance estimated to be 30.8 mL/min. -Cefepime renally dosed, continue to monitor vancomycin. Avoid nephrotoxic agents -Plan of care discussed with Dr. Fuller Thank you for consultation
[2021-11-12] MEDS: PRANDIN PO SCH ×2 (11:30→16:30)
--- NOTE | 2021-11-12 14:15 | P.PN ---
Subjective Date of Service: 11/12/21 Chief Complaint: LLE cellulitis Patient has no new complaints today. Her left leg swelling has significantly improved. Physical Examination - Vital Signs Temperature: 97.1 F Blood Pressure: 134/62 Pulse: 69 Respirations: 16 Pulse Ox (%): 97 - Studies Microbiology Data (last 24 hrs): 11/09/21 23:00 Clean Catch Urine [place] Count - Final BETWEEN 10,000 & 100,000 CFU/ML 11/09/21 23:00 Clean Catch Urine - Final MIXED JEAN MARIE. Assessment And Plan - Plan Physical Exam General: In no apparent distress, Oriented x3 HEENT: Mucous membr. moist/pink, Sclerae nonicteric Neck: Without JVD. Respiratory: Clear to auscultation bilaterally, Normal air movement Cardiovascular: Regular rate/rhythm, Normal S1 S2 Gastrointestinal: Normal bowel sounds, No tenderness Integumentary: Erythema, Warmth left leg, Diabetic ulcer- left gudino and heel. Wound looks clean. Neurological: Normal speech, Normal strength at 5/5 x4 extr, Normal affect Diagnosis Cellulitis left lower extremity Left calcaneal osteomyelitis. Diabetes mellitus type 2 Morbid obesity Sepsis-present on admission. Anemia Iron deficiency Plan: Continue IV vancomycin and cefepime. Infectious disease is following. Wound care team recommendation appreciated. MRI of the left ankle demonstrated calcaneal osteomyelitis. Patient will need 6 weeks of IV antibiotics. Planning disposition to LTAC for wound care and IV antibiotics. PICC line requested. Blood glucose readings relatively stable on Coreg regimen of insulin degludec, glipizide and Prandin. Monitor H&H and transfuse as needed for hemoglobin less than 7. Continue on iron polysaccharide. Vitamin C and zinc.
[2021-11-13] MEDS: VANCOMYCIN 2 GM in NA CHLORIDE 0.9% 500 ML IV SCH ×2
[2021-11-13] MEDS: HEPARIN 5000 UNIT/ML 1 ML VIAL SQ SCH ×3 (02:38→17:40)
[2021-11-13 05:48] LABS: Absolute Lymphocytes (CBC) 1.6 K/uL (0.7-4.9); Hematocrit 24.5 % (36.0-45.0); Lymphocytes % 23.4 % (15.3-44.8); MPV 7.7 fL (7.6-11.3); RBC Red Blood Cell Count 3.14 M/uL (3.86-4.86)
[2021-11-13 06:10] LABS: ALT/SGPT < 10 U/L (12-78); AST/SGOT 12 U/L (15-37); Albumin 1.8 g/dL (3.4-5.0); Alkaline Phosphatase 90 U/L (45-117); BUN Blood Urea Nitrogen 41 mg/dL (7-18); Bicarbonate 23 mmol/L (21-32); Bilirubin Total 0.4 mg/dL (0.2-1.0); Glucose Level 117 mg/dL (74-106); Potassium 4.6 mmol/L (3.5-5.1); Protein, Total 7.4 g/dL (6.4-8.2); Sodium Level 139 mmol/L (136-145); Transferrin 184 mg/dL (200-360)
[2021-11-13] MEDS: INSULIN -REGULAR HUMAN 50 UNIT/0.5 ML ML SQ SCH ×3 (07:30→17:25)
[2021-11-13] MEDS: PRANDIN PO SCH ×3 (07:30→16:30)
[2021-11-13] MEDS: ASPIRIN EC 325 MG TABLET PO SCH (08:35)
[2021-11-13] MEDS: ASCORBIC ACID 500 MG TABLET PO SCH (08:35)
[2021-11-13] MEDS: MULTIVITAMIN TAB PO SCH (08:35)
[2021-11-13] MEDS: ZINC SULFATE 220 MG CAP PO SCH (08:35)
[2021-11-13] MEDS: FE SULF/FA/VIT B COMP & C TAB PO SCH (08:35)
[2021-11-13] MEDS: METOPROLOL TAR 50 MG TAB PO SCH (08:53)
[2021-11-13] MEDS: FUROSEMIDE 40 MG TABLET PO SCH (08:54)
[2021-11-13] MEDS: SITAGLIPTIN PHOSPHATE 100 MG PO SCH (08:55)
[2021-11-13] MEDS: ACETIC ACID 0.25% IRRIG IRR SCH (08:55)
[2021-11-13] MEDS: CEFEPIME 1 GM in NA CHLORIDE 0.9% 100 ML IV SCH (08:55)
[2021-11-13] MEDS: AMLODIPINE 10 MG TAB PO SCH (08:55)
[2021-11-13] MEDS: MEDIHONEY 44 ML TOPICAL TUBE TOP SCH (08:56)
--- NOTE | 2021-11-13 10:44 | P.PN ---
Subjective Date of Service: 11/13/21 Chief Complaint: LLE cellulitis Patient seen and examined at bedside, vancomycin trough supratherapeutic, dose adjusted. Review of Systems 10-point ROS is otherwise unremarkable Physical Examination - Vital Signs Temperature: 98.2 F Blood Pressure: 148/70 Pulse: 82 Respirations: 16 Pulse Ox (%): 98 - Studies Laboratory Last Values WBC 19.7 K/uL (4.3-10.9) H 11/09/21 23:25 RBC 3.58 M/uL (3.86-4.86) L 11/09/21 23:25 Hgb 9.0 g/dL (12.0-15.0) L 11/09/21 23:25 Hct 27.8 % (36.0-45.0) L 11/09/21 23:25 MCV 77.6 fL (80-100) L 11/09/21 23:25 MCH 25.1 pg (27.0-35.0) L 11/09/21 23:25 MCHC 32.4 g/dL (32.0-36.0) 11/09/21 23:25 RDW 17.9 % (12.1-15.2) H 11/09/21 23:25 Plt Count 355 K/uL (152-406) 11/09/21 23:25 MPV 7.9 fL (7.6-11.3) 11/09/21 23:25 Neutrophils % 90.8 % (41.7-73.7) H 11/09/21 23:25 Lymphocytes % 5.4 % (15.3-44.8) L 11/09/21 23:25 Monocytes % 3.3 % (3.3-12.3) 11/09/21 23:25 Eosinophils % 0.3 % (0-4.4) 11/09/21 23:25 Basophils % 0.2 % (0-1.3) 11/09/21 23:25 Absolute Neutrophils 17.9 K/uL (1.8-8.0) H 11/09/21 23:25 Segmented Neutrophils 89 % (40-80) H 11/09/21 23:25 Band Neutrophils 4 % (0-1) H 11/09/21 23:25 Absolute Lymphocytes 1.1 K/uL (0.7-4.9) 11/09/21 23:25 Lymphocytes 5 % (15-42) L 11/09/21 23:25 Monocytes 2 % (0-10) 11/09/21 23:25 Absolute Monocytes 0.7 K/uL (0.1-1.3) 11/09/21 23:25 Absolute Eosinophils 0.1 K/uL (0-0.5) 11/09/21 23:25 Absolute Basophils 0.0 K/uL (0-0.5) 11/09/21 23:25 Platelet Estimate Adeq 11/09/21 23:25 Morphology Comment Not seen (NOT SEEN) 11/09/21 23:25 PT 12.0 SECONDS (9.5-12.5) 11/09/21 23:25 INR 1.09 11/09/21 23:25 Sodium 133 mmol/L (136-145) L 11/09/21 23:25 Potassium 4.9 mmol/L (3.5-5.1) 11/09/21 23:25 Chloride 104 mmol/L (98-107) 11/09/21 23:25 Carbon Dioxide 21 mmol/L (21-32) 11/09/21 23:25 BUN 54 mg/dL (7-18) H 11/09/21 23:25 Creatinine 2.64 mg/dL (0.55-1.3) H 11/09/21 23:25 Estimated GFR 19 mL/min (=/>90) L 11/09/21 23:25 Glucose 206 mg/dL (74-106) H 11/09/21 23:25 Lactic Acid 1.5 mmol/L (0.4-2.0) 11/09/21 23:25 Calcium 8.5 mg/dL (8.5-10.1) 11/09/21 23:25 Magnesium 2.3 mg/dL (1.8-2.4) D 11/09/21 23:25 Total Bilirubin 0.4 mg/dL (0.2-1.0) 11/09/21 23:25 Direct Bilirubin 0.2 mg/dL (0-0.2) 11/09/21 23:25 AST 14 U/L (15-37) L 11/09/21 23:25 ALT 14 U/L (12-78) 11/09/21 23:25 Alkaline Phosphatase 88 U/L (45-117) 11/09/21 23:25 Troponin I High Sens 9.6 pg/mL (<58.9) 11/09/21 23:25 NT-Pro-B Natriuret Pep 2147 pg/mL (<125) H 11/09/21 23:25 Serum Total Protein 8.9 g/dL (6.4-8.2) H 11/09/21 23:25 Albumin 2.5 g/dL (3.4-5.0) L 11/09/21 23:25 Globulin 6.4 g/dL (2.3-3.5) H 11/09/21 23:25 Albumin/Globulin Ratio 0.4 (1.1-1.8) L 11/09/21 23:25 Procalcitonin 1.20 ng/mL (<0.050) H 11/09/21 23:25 Urine pH 5.5 (5.0-7.0) 11/09/21 22:59 Ur Specific [place] 1.020 (1.005-1.030) 11/09/21 22:59 Glucose (UA)(Auto) 2+ (Negative) H 11/09/21 22:59 Urine Ketones Negative (Negative) 11/09/21 22:59 Urine Blood Trace-lysed (Negative) H 11/09/21 22:59 Urine Nitrite Negative (Negative) 11/09/21 22:59 Ur Leukocyte Esterase Negative (Negative) 11/09/21 22:59 Urine Total Protein 3+ (Negative) H 11/09/21 22:59 SARS-CoV-2 Rap RNA(RT-PCR) Negative (NEGATIVE) 11/09/21 23:25 Microbiology Data (last 24 hrs): 11/09/21 23:00 Clean Catch Urine [place] Count - Final BETWEEN 10,000 & 100,000 CFU/ML 11/09/21 23:00 Clean Catch Urine - Final MIXED JEAN MARIE. Assessment And Plan - Plan Physical Exam: General: Alert, In no apparent distress, Obese HEENT: Atraumatic, Normocephalic Neck: Supple Respiratory: Clear to auscultation bilaterally, Normal air movement Cardiovascular: Regular rate/rhythm Gastrointestinal: Normal bowel sounds, Soft and benign Integumentary: Other (Left lower extremity cellulitis, chronic left calcaneus diabetic foot ulcer. Wound is malodorous, wound edges are macerated. Base of wound shows majority 100% pink viable tissue.Left lower extremity wound: base shows mix of fibrin and slough tissue. 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 Patient was first diagnosed with calcaneus osteomyelitis on 01/15/2021 and treated with 6 weeks of IV vancomycin and cefepime. Recommend retreatment with 6 weeks of IV vancomycin and cefepime. Recommend transfer to [facility] for long-term IV antibiotic treatment, wound care, and hyperbaric oxygen treatment for chronic left lower extremity calcaneus wound. Continue current wound care: Clean with saline, apply Medihoney, calcium alginate, and wrap with Kerlix. Continue to keep leg elevated Wound with no purulent drainage or abscess pockets, as such no wound culture will be obtained. -08/11 blood cultures growing coagulase-negative staph, repeat set ordered. Likely contamination. Diabetes Patient states that she is on 5 different agents to control her diabetes however she continues to have chronic hyperglycemia. Recommend endocrinology consult. -Strict glucose control needed for proper wound healing/infection control LARISA on CKD stage III Current creatinine clearance estimated to be 30.8 mL/min. -Cefepime renally dosed, continue to monitor vancomycin. Avoid nephrotoxic agents Protein caloric malnutrition Discussed with patient the importance of adequate protein levels for proper wound healing. Patient stated she will try Glucerna -Plan of care discussed with Dr. Fuller Thank you for consultation
[2021-11-13 11:08] VITALS: O2SAT 98
[2021-11-13] MEDS ORDERED: VANCOMYCIN 2 GM in NA CHLORIDE 0.9% 500 ML IV SCH (12:00)
--- NOTE | 2021-11-13 12:50 | P.DS ---
Admission Date: 11/10/21 Discharge Date: 11/13/21 Disposition: [facility]AC[facility] Discharge Condition: FAIR Reason for Admission: LLE cellulitis Consultations: Infectious disease Wound care team Brief History of Present Illness: Patient is a 56-year-old female with diabetes, HLD, hypertension, neuropathy, chronic diabetic ulcer of left calcaneus and ankle who presented to the ED with complaints of increasing erythema to her left lower extremity. Her son noticed that her leg looked much redder than usual. She denied any pain in her leg. She sees Dr. Fuller frequently. She last had wound care done 2 days ago. In the ED, labs were significant for white blood cell count of 19.7 with bands, creatinine 2.64 (baseline ~1.5), GFR 19, hemoglobin 9, BNP 2147, procalcitonin 1.2, lactic acid within normal limits. She was given Vanco and Zosyn. Blood cultures drawn. Extremity venous ultrasound resulted nonocclusive DVT in the right superficial femoral vein which is usually not anticoagulated. Patient admitted for further management. Hospital Course: Diagnosis Cellulitis left lower extremity Left calcaneal osteomyelitis. Diabetes mellitus type 2 Morbid obesity Sepsis-present on admission. Anemia Iron deficiency Plan: Patient admitted to the medical floor and started on IV vancomycin and cefepime. Seen by infectious disease who assisted with management. Also seen by wound care team for wound care recommendation MRI of the left ankle demonstrated calcaneal osteomyelitis. Patient will need 6 weeks of IV antibiotics. Patient accepted to LTAC for wound care and IV antibiotics Blood glucose readings relatively stable on insulin degludec, and Prandin. Hemoglobin was stable around 8. Patient has iron deficiency and she is on iron polysaccharide. Added Vitamin C and zinc. She is clinically stable for transfer to LTAC. Vital Signs/Physical Exam: Temp Pulse Resp BP Pulse Ox 98.2 F 82 16 148/70 H 98 11/13/21 10:44 11/13/21 10:44 11/13/21 10:44 11/13/21 10:44 11/13/21 10:44 General: Alert, In no apparent distress, Oriented x3 HEENT: Mucous membr. moist/pink Neck: JVD not distended Respiratory: Clear to auscultation bilaterally Cardiovascular: Regular rate/rhythm, Normal S1 S2, Edema (Lower extremities) Gastrointestinal: Soft and benign, Non-distended, No tenderness Musculoskeletal: No tenderness Integumentary: Diabetic ulcer Neurological: Normal speech, Normal strength at 5/5 x4 extr Laboratory Data at Discharge: WBC 7.0 K/uL (4.3-10.9) 11/13/21 05:15 Hgb 8.0 g/dL (12.0-15.0) L 11/13/21 05:15 Hct 24.5 % (36.0-45.0) L 11/13/21 05:15 Plt Count 326 K/uL (152-406) 11/13/21 05:15 PT 12.0 SECONDS (9.5-12.5) 11/09/21 23:25 INR 1.09 11/09/21 23:25 Sodium 139 mmol/L (136-145) 11/13/21 05:15 Potassium 4.6 mmol/L (3.5-5.1) 11/13/21 05:15 BUN 41 mg/dL (7-18) H 11/13/21 05:15 Creatinine 2.53 mg/dL (0.55-1.3) H 11/13/21 05:15 Glucose 117 mg/dL (74-106) H 11/13/21 05:15 Phosphorus 4.0 mg/dL (2.5-4.9) 11/11/21 05:04 Magnesium 2.3 mg/dL (1.8-2.4) D 11/09/21 23:25 Total Bilirubin 0.4 mg/dL (0.2-1.0) 11/13/21 05:15 AST 12 U/L (15-37) L 11/13/21 05:15 ALT < 10 U/L (12-78) L 11/13/21 05:15 Alkaline Phosphatase 90 U/L (45-117) 11/13/21 05:15 Home Medications: Glipizide [Glucotrol Xl] 0.5 mg PO BID 01/24/13 Multivitamin [Multiple Vitamins] 1 each PO DAILY 01/16/21 Aspirin [Aspirin EC 325 MG] 325 mg PO DAILY 07/25/21 Cinnamon Bark [Cinnamon] 1,000 mg PO SEECOM 07/25/21 Furosemide [Lasix] 40 mg PO DAILY #30 tablet 07/25/21 Insulin Degludec [Tresiba] 20 unit SQ DAILY 07/25/21 Iron Polysaccharide Complex [Polysaccharide Iron] 150 mg PO DAILY #30 capsule 07/25/21 Metoprolol Tartrate [Lopressor*] 50 mg PO BID #60 tab 07/25/21 Repaglinide 0.5 mg PO SEECOM 07/25/21 Sitagliptin Phosphate [Januvia*] 100 mg PO DAILY 07/25/21 lisinopriL [Lisinopril] 1 tab PO SEECOM PRN 11/11/21 Acetic Acid 0.25% [Acetic Acid 0.25%*] 1,000 ml IRR DAILY btl 11/13/21 Amlodipine [Norvasc*] 10 mg PO DAILY tab 11/13/21 Ascorbic Acid [Vitamin C*] 500 mg PO BID tablet 11/13/21 Cefepime [Maxipime*] 1 gm IV DAILY #38 vial 11/13/21 Insulin -Regular Human [Novolin -R*] See Protocol SQ ACHS ml 11/13/21 Medihoney [Medihoney Woundcare Gel*] 1 appl TOP DAILY tube 11/13/21 Vancomycin/Water For Inj (Peg) [Vancomycin 2 Gram/400 ml Bag] 1 gm IV Q48H #20 piggyback 11/13/21 Zinc Sulfate [Zinc Sulfate*] 220 mg PO DAILY cap 11/13/21 Zolpidem Tartrate [Ambien*] 5 mg PO BEDTIME PRN PRN tablet 11/13/21 New Medications: Cefepime [Maxipime*] 1 gm IV DAILY #38 vial Vancomycin/Water For Inj (Peg) [Vancomycin 2 Gram/400 ml Bag] 1 gm IV Q48H #20 piggyback Physician Discharge Instructions: Wound Care: Left heel: Clean wound with chlorhexidine, then Acetic Acid 0.25%. Apply Medihoney to wound covered with Algisite (calcium alginate) and kerlix. Offload wound. Change dressing daily. Left medial lower leg: Clean wound with chlorhexidine; rinse with normal saline. Apply Medihoney to wound covered with Algisite (calcium alginate); cover with ABD pad and secure with medipore tape using Cavilon skin prep (patient refuses kerlix to leg, states it "cuts into" her). Change dressing daily. Diet: ADA Activity: Ad rené Followup: Mathew,Josey [Primary Care Provider] - Time spent managing pt's care (in minutes): 35
[2021-11-13 16:56] VITALS: BP 170/64; TEMP 97
== END 2021-11-13 18:13 | DRG 872 ==
LOC: ER 19:25 → ERHOLD 11-10 00:15 → 2ND 11-10 14:41
PROVIDERS: ADMIT Internal Medicine; ATTEND Internal Medicine
DX: A41.9 Sepsis, unspecified organism (principal); L03.116 Cellulitis of left lower limb; M86.8X7 Other osteomyelitis, ankle and foot; I82.411 Acute embolism and thrombosis of right femoral vein; E46 Unspecified protein-calorie malnutrition; L97.429 Non-pressure chronic ulcer of left heel and midfoot with unspecified severity; N17.9 Acute kidney failure, unspecified; R65.20 Severe sepsis without septic shock; E11.69 Type 2 diabetes mellitus with other specified complication; E78.5 Hyperlipidemia, unspecified; E11.40 Type 2 diabetes mellitus with diabetic neuropathy, unspecified; E66.01 Morbid (severe) obesity due to excess calories; Z68.36 Body mass index [BMI] 36.0-36.9, adult; D50.9 Iron deficiency anemia, unspecified; E11.621 Type 2 diabetes mellitus with foot ulcer; I12.9 Hypertensive chronic kidney disease with stage 1 through stage 4 chronic kidney disease, or unspecified chronic kidney disease; E11.22 Type 2 diabetes mellitus with diabetic chronic kidney disease; N18.32 Chronic kidney disease, stage 3b; Z91.040 Latex allergy status; Z20.822 Contact with and (suspected) exposure to COVID-19
CPT/HCPCS: 36415; 71045; 80048; 80053; 80069; 80076; 80202; 81003; 81015; 82947; 83540; 83605; 83735; 83880; 84145; 84466; 84484; 85025; 85610; 86850; 86900; 86901; 87040; 87086; 87088; 87205; 93005; 93970; 96365; 96366; 96372; 96375; 97161; 97530; 99251; 99285; J0360; J0692; J1644; J1650; J1815; J2543; J3370; J7030; J7040; J7050; U0003

== ENCOUNTER 2022-01-19 03:59 | Emergency (ER) | payer OTHER ==
--- OUTSIDE RECORDS SUMMARY | 2022-01-19 04:03 | XMS REPORT | Continuity of Care Document ---
:1965 Author Organization [facility] t Address [address] [place] [address] Care Team Providers Name Role Phone Priyanka MADERA, A Primary Care Physician ABA HARTLEY Attending Clinician Unavailable Hemalatha WAY Attending Clinician Unavailable 2, Lab Attending Clinician Unavailable Hemalatha Way MD Attending Clinician SHAHID Attending Clinician Unavailable ANTHONY Attending Clinician Unavailable Shahid MADERA Attending Clinician DR MELIDA Attending Clinician Unavailable ABA HARTLEY Admitting Clinician Unavailable ANTHONY Admitting Clinician Unavailable DR MELIDA Admitting Clinician Unavailable Payers Payer Name Policy Type Policy Number Effective Date Expiration Date S nestor MEDICARE PART A [id number] 2010 \\T\\ [id number] 00:00:00 MEDICAID OF [place] [id number] 2013 00:00:00 Problems Condition Condition Condition Status Onset Resolution Last Treating Co mments Source Name Details Category Date Date Treatment Clinician Date Diabetic Diabetic Disease Active 2020-08 Unive rs ulcer of ulcer of 0-22 ity of left lower left lower [place] leg leg [facility] [place] Obesity Obesity Disease Active 2020-08 Univers (BMI (BMI 0-22 ity of 30-39.9) 30-39.9) 00:00: [place] 00 Medical Branch Acquired Acquired Disease Active Unive rs absence of absence of 7-16 it y of other left other left 00:[place] toe(s) toe(s) 00 Medical Branch Allergic Allergic Disease Active Unive rs rhinitis, rhinitis, 7-16 ity of unspecifie unspecifie 00:00: [place] d d 00 [place] Chronic Chronic Disease Active Univers kidney kidney 716 ity of disease, disease, 00:00: [place] stage 3 stage 3 00 Medical unspecifie unspecifie Br anch d d Heartburn Heartburn Disease Active Uni vers 7-16 ity of 00:00: [place] [facility] Insomnia, Insomnia, Disease Active Uni vers unspecifie unspecifie 16 it y of d d 00:00: [place] 00 Medical Branch Osteomyeli Osteomyeli Disease Active U nivers tis, tis, -16 ity of unspecifie unspecifie 00:00: [place] 00 [facility] [place] Other Other Disease Active Univers osteoporos osteoporos 716 it y of is without is without 00:00: [place] current current 00 Medical pathologic pathologic Br anch al al fracture fracture Peripheral Peripheral Disease Active U nivers vascular vascular 7-16 ity of disease, disease, 00:00: [place] unspecifie unspecifie 00 Me dical d d Branch Type 2 Type 2 Disease Active Univers diabetes diabetes 716 ity of mellitus mellitus 00:00: [place] with with 00 Medical diabetic diabetic Branch neuropathy neuropathy , , unspecifie unspecifie d d Need for Need for Disease Active Unive rs influenza influenza 1-20 ity of vaccinatio vaccinatio 00:00: [place] 00 Medical Branch Uncontroll Uncontroll Disease Active 2019-08 U nivumu ed ed 0-15 ity of insulin-tr insulin-tr 00:00: [place] eated type eated type 00 Me dical 2 diabetes 2 diabetes Br anch mellitus mellitus Asymptomat Asymptomat Disease Active 2019-08 U nivers ic ic 0-15 ity of hypertensi hypertensi 00:00: [place] ve urgency ve urgency 00 Me dical Branch Anxiety Anxiety Disease Active 2019-08 Univers attack attack 0-15 ity of 00:00: [place] 00 Medical Branch Pre-ulcera Pre-ulcera Disease Active U nivers tive tive 1-08 ity of calluses calluses 00:00: [place] 00 Medical Branch Menopausal Menopausal Disease Active U laura state state 05-03 ity of 00:00: Medical Branch Post-menop Post-menop Disease Active U laura ausal ausal 05-03 ity of bleeding bleeding 00:00: [place] [facility] Medicare Medicare Disease Active Unive rs annual annual 05-03 ity of wellness wellness 00:00: [place] visit, visit, 00 Medical subsequent subsequent Br anch 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 2 ity of mellitus mellitus 00:00: [place] with renal with renal 00 Me dical complicati complicati Br anch on on Right Right Disease Active 2014-08 Univers carotid carotid 09-28 ity of bruit bruit 00:00: Medical Branch Vitamin D Vitamin D Disease Active Uni vers deficiency deficiency 01-16 it y of 00:00: [place] [facility] HLD HLD Disease Active Univers (hyperlipi (hyperlipi 01-14 it y of demia) demia) 00:00: [place] [facility] Metabolic Metabolic Disease Active Uni vers syndrome X syndrome X 01-14 it y of 00:00: [place] [facility] Essential Essential Disease Active Uni vers hypertensi hypertensi 01-14 it y of on on 00:00: [place] [facility] Class 2 Class 2 Disease Active 2012-08 Overview: Univ ers severe severe 08-11 Formattin ity of obesity obesity 00:00: g [...] different from the original. 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 since age 19, sees Dr. Yates Pain in Pain in Diagnosis Active Commo n toe of toe of Spirit right foot right foot - [facility] Closed Closed Diagnosis Active Common displaced displaced Spir it fracture fracture - [facility] of distal of distal St phalanx of phalanx of Jerica kes right right Medical great toe great toe Cent er with with routine routine healing, healing, subsequent subsequent encounter encounter Allergies, Adverse Reactions, Alerts Allergy Allergy Status Severity Reaction(s) Onset Inactive Treating Comm ents Source Name Type Date Date Clinician LATEX Allergy Active Itching [facility] 00:00: Medical 00 [place] Tomato Propensi Active Itching 2018- Univers ty to 3-14 ity of adverse 00:00: [place] reaction 00 Medical s Branch TOMATO DRUG Active ITCHING 2018- Univers INGREDI 3-14 ity of 00:00: [place] 00 Medical Branch Latex Propensi Active Itching 2017- Univers ty to 0-11 ity of adverse 00:00: [place] reaction 00 Medical s Branch LATEX DRUG Active ITCHING 2018- Univers INGREDI 0-11 ity of 00:00: [place] 00 Medical Branch Insulin Drug Active Swelling 2017-0 Insulin Univer s Aspart Allergy 05-03 novalin N ity of 00:00: & R [place] 00 Medical Branch INSULIN DRUG Active Swelling 2017- Univers ASPART INGREDI 05-03 ity of 00:00: [place] 00 Medical Branch Latex Adverse Active Info Not Common Reaction Available Spiri t - [facility] Latex DA Active Unknown [facility] NO KNOWN Allergy Active [facility] Social History Social Habit Start Date Stop Date Quantity Comments Source Exposure to Not sure [facility] SARS-CoV-2 [place] Medical (event) Branch Alcohol intake 2022-01-11 2022-01-11 Current University of 00:00:00 00:00:00 non-drinker of [facility] alcohol Branch (finding) Sex [birth year] At [birth year] Universit y of 00:00:00 00:00:00 [facility] Smoking Status Start Date Stop Date Source Never smoker [facility] Medical Branch Medications Ordered Filled Start Stop Current Ordering Indication Dosage Frequency Signature Comments Components Source Medication Medication Date Date Medication? Clinician (SIG) Name Name multivitami Yes 1{capsu Take 1 Cap Univers n capsule 6- le} by mouth ity of 11:11: daily. [place] 47 Medical Branch BRIMONIDINE Yes Place in U nivers TARTRATE/TI 6-06 each eye 2 it y of MOLOL 11:11: (two) [place] (COMBIGAN 45 times Medical OPHTHALMIC) daily. Branch BIMATOPROST Yes 1[drp] Place 1 U nivers (LUMIGAN 6-06 Drop in ity of OPHTHALMIC) 11:11: each eye [place] 43 daily. Medical Branch ascorbic Yes 500mg Take 500 Univ ers acid, 6-06 mg by ity of vitamin C, 11:09: mouth. [place] 500 mg 53 Medical tablet Branch metoprolol Yes 25mg Take 25 mg U nivers tartrate 25 6-06 by mouth 2 it y of mg tablet 11:09: (two) [place] 44 times Medical daily. Branch BID. Takes with metoprolol succinate 50mg daily, per Dr. Montalvo repaglinide Yes [id number] TAKE 1 Univers 0.5 mg 4-14 TABLET BY ity of tablet 00:00: MOUTH [place] 00 BEFORE Medical MEALS . IF Branch BLOOD SUGAR GREATER THAN 200 AFTER MEALS ( POST-P AMY ) TAKE 2 TABLETS repaglinide Yes [id number] TAKE 1 Univers 0.5 mg 4-14 TABLET BY ity of tablet 00:00: MOUTH [place] 00 BEFORE Medical MEALS . IF Branch BLOOD SUGAR GREATER THAN 200 AFTER MEALS ( POST-P AMY ) TAKE 2 TABLETS metoprolol Yes [id number] 50mg Take 1 U nivers succinate 2-18 tablet by ity o f XL 50 mg 24 00:00: mouth [place] hr tablet 00 daily. Medical Branch metoprolol Yes [id number] 50mg Take 1 U nivers succinate 2-18 tablet by ity o f XL 50 mg 24 00:00: mouth [place] hr tablet 00 daily. Medical Branch metoprolol Yes [id number] 50mg Take 1 U nivers succinate 2-18 tablet by ity o f XL 50 mg 24 00:00: mouth [place] hr tablet 00 daily. Medical Branch BIMATOPROST Yes 1[drp] Place 1 U nivers (LUMIGAN 1-26 Drop in ity of OPHTHALMIC) 11:06: each eye [place] 26 daily. Medical Branch BRIMONIDINE Yes Place in U nivers TARTRATE/TI 09-02 each eye 2 it y of MOLOL 11:06: (two) [place] (COMBIGAN 26 times Medical OPHTHALMIC) daily. Branch multivitami Yes 1{capsu Take 1 Cap Univers n capsule 1-26 le} by mouth ity of 11:06: daily. [place] [facility] Branch cyanocobala Yes 1000mg Take 1,000 Univers min, 1-26 mg by ity of vitamin 11:06: mouth. [place] Medical (VITAMIN Branch B-12 ORAL) BIMATOPROST Yes 1[drp] Place 1 U nivers (LUMIGAN 1-26 Drop in ity of OPHTHALMIC) 11:06: each eye [place] 26 daily. Medical Branch BRIMONIDINE Yes Place in U nivers TARTRATE/TI 09-02 each eye 2 it y of MOLOL 11:06: (two) [place] (COMBIGAN 26 times Medical OPHTHALMIC) daily. Branch multivitami Yes 1{capsu Take 1 Cap Univers n capsule 1-26 le} by mouth ity of 11:06: daily. [place] [facility] Branch cyanocobala Yes 1000mg Take 1,000 Univers min, 1-26 mg by ity of vitamin 11:06: mouth. [place] Medical (VITAMIN Branch B-12 ORAL) triamterene Yes [id number] 1{capsu Take 1 Univers -hydrochlor 1-26 le} capsule by it y of othiazide 00:00: mouth [place] 37.5-25 mg 00 every Medical per capsule morning. Bran ch Cholecalcif Yes [id number] 5000U Take 1 Univers hallie, 1-26 tablet by ity of Vitamin D3, 00:00: mouth [place] (VITAMIN 00 daily. Medical D3) 125 mcg Branch (5,000 unit) tablet metformin Yes [id number] TAKE TWO Univers ER 500 mg 1-26 TABLETS BY ity of 24 hr 00:00: MOUTH [place] tablet 00 EVERY Medical MORNING , Branch TAKE ONE TABLET BY MOUTH DAILY AT NOON , AND TAKE TWO TABLETS BY MOUTH AT BEDTIME aspirin 325 2021-0 Yes [id number] 325mg Take 1 Univers mg tablet 1-26 tablet by ity o f 00:00: mouth [place] 00 daily with Medical breakfast. Branch furosemide 2021-0 Yes [id number] 40mg Take 1 Univers 40 mg 1-26 tablet by ity of tablet 00:00: mouth [place] 00 daily. [facility] lisinopriL 2021-0 Yes [id number] 20mg Take 1 Univers 20 mg 1-26 tablet by ity of tablet 00:00: mouth [place] 00 daily. [facility] triamterene 2021-0 Yes [id number] 1{capsu Take 1 Univers -hydrochlor 1-26 le} capsule by it y of othiazide 00:00: mouth [place] 37.5-25 mg 00 every Medical per capsule morning. [facility] Cholecalcif 0 Yes [id number] 5000U Take 1 Univers hallie, 1-26 tablet by ity of Vitamin D3, 00:00: mouth [place] (VITAMIN 00 daily. Medical D3) 125 mcg Branch (5,000 unit) tablet metformin 2021-0 Yes [id number] TAKE TWO Univers ER 500 mg 1-26 TABLETS BY ity of 24 hr 00:00: MOUTH [place] tablet 00 EVERY Medical MORNING , Branch TAKE ONE TABLET BY MOUTH DAILY AT NOON , AND TAKE TWO TABLETS BY MOUTH AT BEDTIME aspirin 325 2021-0 Yes [id number] 325mg Take 1 Univers mg tablet 1-26 tablet by ity o f 00:00: mouth [place] 00 daily with Medical breakfast. [place] furosemide 2021-0 Yes [id number] 40mg Take 1 Univers 40 mg 1-26 tablet by ity of tablet 00:00: mouth [place] 00 daily. [facility] lisinopriL 2021-0 Yes [id number] 20mg Take 1 Univers 20 mg 1-26 tablet by ity of tablet 00:00: mouth [place] 00 daily. [facility] Cholecalcif 2021-0 Yes [id number] 5000U Take 1 Univers hallie, 1-26 tablet by ity of Vitamin D3, 00:00: mouth [place] (VITAMIN 00 daily. Medical D3) 125 mcg Branch (5,000 unit) tablet furosemide 2021-0 Yes [id number] 40mg Take 1 Univers 40 mg 1-26 tablet by ity of tablet 00:00: mouth [place] 00 daily. Medical Branch lisinopriL Yes [id number] 20mg Take 1 Univers 20 mg 1-26 tablet by ity of tablet 00:00: mouth [place] 00 daily. Medical Branch metoprolol 2021- No [id number] 100mg Take 1 Univers tartrate 1-26 02-18 tablet by ity o f 100 mg 00:00: 00:00 mouth [place] tablet 00 :00 daily. Medical Branch hydrALAZINE 2020-08 Yes [id number] 50mg Take 1 Univers 50 mg 2-17 tablet by ity of tablet 00:00: mouth [place] 00 every 8 Medical (eight) Branch hours. hydrALAZINE 2020-08 Yes [id number] 50mg Take 1 Univers 50 mg 2-17 tablet by ity of tablet 00:00: mouth [place] 00 every 8 Medical (eight) Branch hours. hydrOXYzine 2020-08 Yes [id number] 50mg Take 1 Univers 50 mg 2-16 tablet by ity of tablet 00:00: mouth [place] 00 every 8 Medical (eight) Branch hours as needed for Itching or Anxiety. hydrOXYzine 2020-08 Yes [id number] 50mg Take 1 Univers 50 mg 2-16 tablet by ity of tablet 00:00: mouth [place] 00 every 8 Medical (eight) Branch hours as needed for Itching or Anxiety. insulin 2020-08 Yes [id number] 10U inject Univ ers degludec 0-22 10-20 ity of (TRESIBA 00:00: Units [place] FLEXTOUCH 00 under the Medic al U-100) 100 skin Branch unit/mL (3 daily. mL) InPn glipiZIDE 2020-08 Yes [id number] 10mg Take 1 Un smitha XL 10 mg 24 0-22 tablet by ity of hr tablet 00:00: mouth 2 [place] 00 (two) Medical times Branch daily. SITagliptin 2020-08 Yes [id number] 100mg Take 1 Univers (JANUVIA) 0-22 tablet by ity o f 100 mg 00:00: mouth [place] tablet 00 daily. Medical Branch repaglinide 2020-08 Yes [id number] TAKE 1 Univers 0.5 mg 0-22 TABLET BY ity of tablet 00:00: MOUTH [place] 00 BEFORE Medical MEALS IF Branch BLOOD SUGARS GREATER THAN 200 AFTER MEALS ( POST -P AMY ) TAKE 2 atorvastati 2020-08 Yes [id number] 10mg Take 1 Univers n 10 mg 0-22 tablet by ity of tablet 00:00: mouth at [place] 00 bedtime. Medical Branch insulin 2020-08 Yes [id number] 10U inject Univ ers degludec 0-22 10-20 ity of (TRESIBA 00:00: Units [place] FLEXTOUCH 00 under the Medic al U-100) 100 skin Branch unit/mL (3 daily. mL) InPn glipiZIDE 2020-08 Yes [id number] 10mg Take 1 Un smitha XL 10 mg 24 0-22 tablet by ity of hr tablet 00:00: mouth 2 (two) Medical times Branch daily. SITagliptin 2020-08 Yes [id number] 100mg Take 1 Univers (JANUVIA) 0-22 tablet by ity o f 100 mg 00:00: mouth [place] tablet 00 daily. Medical Branch atorvastati 2020-08 Yes [id number] 10mg Take 1 Univers n 10 mg 0-22 tablet by ity of tablet 00:00: mouth at [place] 00 bedtime. Medical Branch insulin 2020-08 Yes [id number] 10U inject Univ ers degludec 0-22 10-20 ity of (TRESIBA 00:00: Units [place] FLEXTOUCH 00 under the Medic al U-100) 100 skin Branch unit/mL (3 daily. mL) InPn glipiZIDE 2020-08 Yes [id number] 10mg Take 1 Un smitha XL 10 mg 24 0-22 tablet by ity of hr tablet 00:00: mouth 2 (two) Medical times Branch daily. SITagliptin 2020-08 Yes [id number] 100mg Take 1 Univers (JANUVIA) 0-22 tablet by ity o f 100 mg 00:00: mouth [place] tablet 00 daily. Medical Branch atorvastati 2020-08 Yes [id number] 10mg Take 1 Univers n 10 mg 0-22 tablet by ity of tablet 00:00: mouth at [place] 00 bedtime. Medical Branch repaglinide 2020-08- No [id number] TAKE 1 Univers 0.5 mg 0-22 04-14 TABLET BY ity of tablet 00:00: 00:00 MOUTH [place] 00 :00 BEFORE Medical MEALS IF Branch BLOOD SUGARS GREATER THAN 200 AFTER MEALS ( POST -P AMY ) TAKE 2 Insulin 2018-08 Yes [id number] Use as Univ ers [place], 0-04 directed. ity of Disposable, 00:00: E 11.21. [place] (EVER PEN 00 Once daily Medi koko NEEDLE) 32 Branch gauge x 5/32" Ndle Insulin 2018-08 Yes [id number] Use as Univ ers [place], 0-04 directed. ity of Disposable, 00:00: E 11.21. [place] (EVER PEN 00 Once daily Medi koko NEEDLE) 32 Branch gauge x 5/32" Ndle Insulin 2018-08 Yes [id number] Use as Univ ers [place], 0-04 directed. ity of Disposable, 00:00: E 11.21. [place] (EVER PEN 00 Once daily Medi koko NEEDLE) 32 Branch gauge x 5/32" Ndle turmeric Yes [id number] 500mg Take 500 Univers root 8-20 mg by ity of extract 500 00:00: mouth [place] mg Cap 00 daily. Medical Branch turmeric Yes [id number] 500mg Take 500 Univers root 8-20 mg by ity of extract 500 00:00: mouth [place] mg Cap 00 daily. Medical Branch Cinnamon Yes [id number] 1000mg Take 1,000 Univers Bark 3-14 mg by ity of (CINNAMON) 00:00: mouth 2 [place] 500 mg Cap 00 (two) Medical times Branch daily. Cinnamon Yes [id number] 1000mg Take 1,000 Univers Bark 3-14 mg by ity of (CINNAMON) 00:00: mouth 2 [place] 500 mg Cap 00 (two) Medical times Branch daily. Cinnamon Yes [id number] 1000mg Take 1,000 Univers Bark 3-14 mg by ity of (CINNAMON) 00:00: mouth 2 [place] 500 mg Cap 00 (two) Medical times Branch daily. MetFORMIN MetFORMIN Yes Bakari not Co mmon HCl ER HCl ER Torres defined [facility] Aspirin Aspirin Yes Bakari 1 tablet Co mmon Torres [facility] Atorvastati Atorvastati Yes Bakari not Common n Calcium n Calcium Torres defined Sp leslie - [facility] Januvia Januvia Yes Bakari not Common Torres defined [facility] Lisinopril Lisinopril Yes Bakari not Common Torres defined Spirit - [facility] GlipiZIDE GlipiZIDE Yes Bakari not Co mmon ER ER Torres defined [facility] - [facility] Immunizations Ordered Filled Immunization Date Status Comments Sourc e Immunization Name Name PPD (TB) 2021-02-20 Completed University of 00:00:00 [facility] PPD (TB) 2021-02-20 Completed University of 00:00:00 [facility] PPD (TB) 2021-02-20 Completed University of 00:00:00 [facility] SARS-COV-2 COVID-19 2020-09-19 Completed Unive rsity of PFIZER VACCINE 00:00:00 [facility] SARS-COV-2 COVID-19 2020-09-19 Completed Unive rsity of PFIZER VACCINE 00:00:00 [facility] SARS-COV-2 COVID-19 2020-09-19 Completed Unive rsity of PFIZER VACCINE 00:00:00 [facility] SARS-COV-2 COVID-19 2020-08-29 Completed Unive rsity of PFIZER VACCINE 00:00:00 [facility] SARS-COV-2 COVID-19 2020-08-29 Completed Unive rsity of PFIZER VACCINE 00:00:00 [facility] SARS-COV-2 COVID-19 2020-08-29 Completed Unive rsity of PFIZER VACCINE 00:00:00 [facility] Td 2009-06-11 Completed University of 00:00:00 [facility] Td 2009-06-11 Completed University of 00:00:00 [facility] Td 2009-06-11 Completed University of 00:00:00 [facility] Rubella 2007-11-09 Completed University of 00:00:00 [facility] Rubella 2007-11-09 Completed University of 00:00:00 [facility] Rubella 2007-11-09 Completed University of 00:00:00 [facility] Vital Signs Vital Name Observation Time Observation Value Comments Source HEIGHT 2021-01-26 09:34:00 170.2 cm WEIGHT 2021-01-26 09:34:00 120.657 kg Height 2021-02-11 16:47:00 170.18 CM Weight 2021-02-11 16:47:00 114.3 KG HEIGHT 2021-01-26 09:34:00 170.2 cm WEIGHT 2021-01-26 09:34:00 120.657 kg Procedures Procedure Date / Time Performed Performing Clinician Sourc e DETACH LT FOOT PARTIAL 2021-02-12 00:00:00 [facility] 5TH RAY OPEN Center DRAIN LT FT SUBQ TISS 2021-02-12 00:00:00 [facility] FASC OPN APPR Center REPL LT FT SKN NAUTO 2021-02-12 00:00:00 [facility] SB PRT THK EXT Center EXC LT FOOT SUBQ TISS [facility] FASC OPN APPR Center Encounters Start End Encounter Admission Attending Care Care Encounter Source Date/Time Date/Time Type Type Clinicians Facility Department ID 2021-05-17 Outpatient CIRO HARTLEY Surgery [id number] [facility] 01:40:06 IMRAN 2022-03-15 2022-03-15 [id number] Univers 10:40:00 10:40:00 SAVANA [id number] [facility] 2022-03-15 2022-03-[address] [facility] [id number] Univers 10:40:00 10:40:00 SAVANA [facility] 2022-01-11 2022-01-11 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 [id number] [facility] [id number] Ricki KEARNEYIO [phone] Wy dical NAL 353 Branch BUILDING 2022-01-11 2022-01-[address] [facility] [id number] Univers 13:00:00 13:00:00 SAVANA [id number] [facility] 2022-01-11 2022-01-11 [facility] [id number] Univers 13:00:00 13:00:00 SAVANA [facility] 2021-12-31 2021-12-31 Outpatient Kristine ZAVALA [facility] [id number] Univers 09:20:00 09:20:00 ALEXI [id number] [facility] 2021-12-10 2021-12-10 [facility] [id number] Univers 11:20:00 11:20:00 SAVANA [id number] [facility] 2021-12-10 2021-12-10 [facility] [id number] Univers 11:20:00 11:20:00 SAVANA [facility] 2021-12-03 2021-12-03 [id number] [place] 00:00:00 00:00:00 CARINA 719 Method i 2021-12-02 2021-12-02 Outpatient ANTHONY [facility] [id number] [place] 00:00:00 00:00:00 CARINA 024 Method i 2021-11-18 2021-11-18 [facility] [id number] Univers 00:00:00 00:00:00 Alexi FRASER [id number] i ty [facility] [id number] [place] PROF[place] [phone] Wy dical [facility] 044 [facility] 2021-09-22 2021-09-22 [facility] [id number] [facility] 00:00:00 00:00:00 Savana FRASER [id number] ity [facility] [id number] [place] PROFESS[place] [phone] Wy dical NAL 231 [facility] 2021-02-12 2021-02-12 Outpatient Jakob MONTEZ [facility] [id number] [place] 10:00:00 15:35:00 ALPASH [facility] 2021-01-07 2021-01-07 [facility] [id number] 00:00:00 00:00:00 Sav[place] Fraser [id number] [place] [id number] Professio [phone] [address] 2021-01-06 2021-01-[address], [facility] [id number] 00:00:00 00:00:00 Savana Fraser [id number] [place] [id number] Professio [phone] [address] 2020-12-25 2020-12-25 Refill Wya, [facility] [id number] 00:00:00 00:00:00 [place] Fraser [id number] [place] [id number] Professio [phone] [address] 2020-11-26 2020-11-26 Office Shahid [facility] [id number] 13:45:19 15:47:52 Visit Alexi [place] [id number] [place] [id number] Professio [phone] [address] 2018-03-06 2018-03-06 [facility] [id number] Common 10:30:00 10:30:00 [facility] Results Test Description Test Time Test Comments Results Result Comments Source ANAEROBIC CULTURE 2021-02-17 10:51:00 Test Item Value Reference Range Interpretation Comme nts Culture Observations (test code = COB1) NO ANAEROBES ISOLATED AT 5 DAYS. CULTURE HELD FOR 5 DAYS ANAEROBIC [id number] 10:51:00 Test Item Value Reference Range Interpretation Comments Culture Observations NO ANAEROBES ISOLATED (test code = COB1) AT 5 DAYS. CULTURE HELD FOR 5 DAYS WOUND/SKIN/ABS.&GRAMSTAIN [id number] 08:28:00 Test Item Value Reference Range Interpretation Comments Culture Observations NO GROWTH AFTER 3 (test code = COB1) DAYS Direct Exam (test code = FEW WHITE BLOOD CELLS DE1) SEEN Direct Exam (test code = NO ORGANISMS SEEN DE2) WOUND/SKIN/ABS.&GRAMSTAIN [id number] 08:27:00 Test Item Value Reference Range Interpretation Comments Culture Observations NO GROWTH AFTER 3 (test code = COB1) DAYS Direct Exam (test code = RARE WHITE BLOOD DE1) CELLS SEEN Direct Exam (test code = NO ORGANISMS SEEN DE2) GLUCOMETER GLUCOSE- LAB USE [id number] 14:08:00 Test Item Value Reference Range Interpretation Comments GLUCOMETER (test code = 188 mg/dL 70-100 H Mete r ID: GMG) [id number] tor: [id number] SUBI SEBA STIAN GLUCOMETER GLUCOSE- LAB USE [id number] 12:11:00 Test Item Value Reference Range Interpretation Comments GLUCOMETER (test code = 254 mg/dL 70-100 H Mete r ID: GMG) [id number] tor: [id number] GLUCOMETER GLUCOSE- LAB USE [id number] 11:10:00 Test Item Value Reference Range Interpretation Comments GLUCOMETER (test code = 329 mg/dL 70-100 H Mete r ID: GMG) [id number] tor: [id number] SUBI SEBA STIAN GLUCOMETER GLUCOSE- LAB USE [id number] 09:57:00 Test Item Value Reference Range Interpretation Comments GLUCOMETER (test code = 333 mg/dL 70-100 H Mete r ID: GMG) [id number] tor: [id number] SHE[address] PT/[id number] 10:47:00 Test Item Value Reference Range Interpretation Comments PROTIME (BEAKER) (test 11.7 seconds 9.3-12.0 Final Information code = 759) (Auto Output) INR (BEAKER) (test 1.06 See_Comment Final Inf ormation code = 370) (Auto Output) [Automated mess age] The system [employer] generated this result transmit duc reference range [...] 2.5-3.5 for patients with mechanical heart valves.POCT-GLUCOSE [id number] 09:54:00 Test Item Value Reference Range Interpretation Comments POC-GLUCOSE METER 176 mg/dL 70-110 H : TESTED A T [facility] 1317 (BE[place]ANNER) (test code [address], = 1538) [facility] [phone]: Continuity Tester/Techni horacio ID = [id number] for Sharyn Damian
--- NOTE | 2022-01-19 04:49 | ER ---
Nurse's Notes [facility] Name: Dang Sequeira Age: 56 yrs Sex: Female : 1965 Arrival Date: 01/19/2022 Time: 04:01 Bed Waiting Private MD: Diagnosis: Presentation: 01/19 04:43 Chief complaint: Patient states: she started having difficulty breathing about an hour bb ago then took her medicine and now she is feeling better. She has appt with her foot doctor at 1000 this morning in [facility] and now does not want to be seen in the ED. Instructed pt if symptoms change or worsen she can return to ED immediately pt verbalized understanding and left the ED. ED Course: 04:01 Patient arrived in ED. heather Administered Medications: No medications were administered Outcome: 04:48 Patient left the ED. bb Signatures: Alondra Wright RN RN Pgegy Mayes
== END 2022-01-19 04:48 | disposition left against medical advice (07) ==
LOC: ER 03:59
DX: Z02.9 Encounter for administrative examinations, unspecified (principal)
CPT/HCPCS: 99281